=== PATIENT | female | born 1930 | race Caucasian/White ===

== ENCOUNTER 2016-07-12 06:36 | Inpatient (IN) | payer MEDICARE, OTHER ==
[2016-07-12] MEDS: Sodium Chloride 0.9% 10 ML Syringe FLUSH PRN ×2 (07:05→07:38)
--- NOTE | 2016-07-12 07:31 | EDM.PDOC ---
ED HPI Trauma - General Chief Complaint: Lower Extremity Injury/Pain Stated Complaint: [facility] Time Seen by Provider: 07/12/16 06:50 Source: Reports: Patient, EMS History Limitations: Reports: No limitations - History of Present Illness INITIAL COMMENTS - FREE TEXT/NARRATIVE: The patient presents from [place] by EMS for a fall. She lost her balance in the bathroom and fell. She did hit her head and she has a laceration to the right lateral eyebrow. She also has low back pain, right hip pain and right knee pain. She could get up after the fall but she hurt in those areas. She had no LOC. She is on eliquis. She has no chest pain or shortness of breath. She has no abdominal pain. Occurred When: this morning (at about 3:30am) Occurred Where: home ([place]) Method of Injury: fall Severity: moderate Pain/Injury Location: Reports: head, face, back (low), lower extremity, right ( hip and knee) Consciousness: Reports: no loss of consciousness Associated Symptoms: Reports: no other symptoms Allergies/ADRs: Allergies atorvastatin calcium [From Lipitor] Allergy (Verified 07/12/16 06:41) Cannot Remember celecoxib [From Celebrex] Allergy (Verified 07/12/16 06:41) Cannot Remember Home Medications: Ambulatory Orders Acetaminophen [Tylenol] 650 mg PO BID 06/06/16 [Confirmed 07/12/16] Albuterol Sulfate [Proair Respiclick] 2 puff INH ASDIRECTED PRN 06/06/16 [ Confirmed 07/12/16] Albuterol Sulfate [Proair Respiclick] 2 puff INH BID 06/06/16 [Confirmed ] Allopurinol [Zyloprim] 200 mg PO DAILY 06/06/16 [Confirmed 07/12/16] Apixaban [Eliquis] 2.5 mg PO BID 06/06/16 [Confirmed 07/12/16] Calcium Polycarbophil [Fiber Tabs] 3 tab PO DAILY 06/06/16 [Confirmed 07/12/16] Carboxymethylcellulose Sodium [Refresh Tears] 1 drop EYEBOTH TID 06/06/16 [ Confirmed 07/12/16] Cetirizine [ZyrTEC] 10 mg PO DAILY 06/06/16 [Confirmed 07/12/16] Cholecalciferol (Vitamin D3) [Vitamin D3] 1,000 units PO DAILY 06/06/16 [ Confirmed 07/12/16] Diclofenac Sodium [Voltaren 1% Gel] 1 applic TOP BID 06/06/16 [Confirmed ] Diclofenac Sodium [Voltaren 1% Gel] 1 applic TOP BID PRN 06/06/16 [Confirmed ] Donepezil HCl 10 mg PO DAILY 06/06/16 [Confirmed 07/12/16] Ferrous Sulfate [Iron] 325 mg PO MOWESA 06/06/16 [Confirmed 07/12/16] Furosemide [Lasix] 20 mg PO QAM 06/06/16 [Confirmed 07/12/16] Gabapentin [Neurontin] 600 mg PO BEDTIME 06/06/16 [Confirmed 07/12/16] Glucosamine/D3/Boswellia Aby [Osteo Bi-Flex Caplet] 1 each PO DAILY 06/06/16 [ Confirmed 07/12/16] Hydrocodone/Acetaminophen [[place] 5-325] 1 each PO Q12HR PRN 06/06/16 [Confirmed 07/12/16] Insulin Detemir [Levemir Flextouch] 25 unit SQ QAM 06/06/16 [Confirmed 07/12/16] Latanoprost [Xalatan 0.005% Ophth Soln] 2.5 ml EYEBOTH BEDTIME 06/06/16 [ Confirmed 07/12/16] Linagliptin [Tradjenta] 5 mg PO DAILY 06/06/16 [Confirmed 07/12/16] Metoprolol Succinate [Toprol XL] 25 mg PO DAILY 06/06/16 [Confirmed 07/12/16] Mometasone Furoate [Nasonex] 17 gm NS DAILY PRN 06/06/16 [Confirmed 07/12/16] Nystatin [Nystatin Crm] 15 gm TOP BID 06/06/16 [Confirmed 07/12/16] Sennosides [Senna] 3 tab PO DAILY 06/06/16 [Confirmed 07/12/16] Spironolactone [Aldactone] 25 mg PO DAILY 06/06/16 [Confirmed 07/12/16] Tiotropium Br/Olodaterol HCl [Stiolto Respimat Inhal [place]] 2 puff IH DAILY 09/15 [Confirmed 07/12/16] Trolamine Salicylate/Aloe Vera [Aspercreme 10%] 85 gm TOP QID PRN 06/06/16 [ Confirmed 07/12/16] Vitamin B Complex 1 each PO DAILY 06/06/16 [Confirmed 07/12/16] Digoxin 0.0625 mg PO DAILY 06/15/16 [Confirmed 07/12/16] Fluconazole [Diflucan] 200 mg PO ASDIRECTED 07/12/16 [Confirmed 07/12/16] Sacubitril/Valsartan [Entresto 24 mg-26 mg Tablet] 1 each PO BID 07/12/16 [ Confirmed 07/12/16] Past Medical History HEENT History: Reports: Hard of hearing, Impaired vision Other HEENT History: Wears glasses Cardiovascular History: Reports: Afib, CAD, Heart Failure Respiratory History: Reports: Asthma, COPD, PE Gastrointestinal History: Reports: Chronic constipation Genitourinary History: Reports: Chronic renal insuffiency [employer] History: Reports: Musculoskeletal History: Reports: Gout, Osteoarthritis Psychiatric History: Reports: Alzheimers disease Endocrine/Metabolic History: Reports: Diabetes, type II Hematologic History: Reports: Other (see below) Other Hematologic History: thrombocytopenia Oncologic (Cancer) History: Reports: Basal cell carcinoma, Other (see below) Other Oncologic History: actinic keratosis Social & Family History - Tobacco Use Smoking Status *Q: Never Smoker Second Hand Smoke Exposure: No - Caffeine Use Caffeine Use: Reports: Coffee Other Caffeine Use: 1 cup with meals - Alcohol Use Days Per Week of Alcohol Use: 0 - Recreational Drug Use Recreational Drug Use: No Review of Systems - Review of Systems Review Of Systems: See Below Constitutional: Reports: no symptoms Eyes: Reports: no symptoms Ears: Reports: no symptoms Nose: Reports: no symptoms Mouth/Throat: Reports: no symptoms Respiratory: Reports: no symptoms Cardiovascular: Reports: no symptoms GI/Abdominal: Reports: No symptoms Genitourinary: Reports: no symptoms Musculoskeletal: Reports: back pain, other (Right hip and knee pain) Trauma Exam - Physical Exam Exam: See Below Exam Limited By: No limitations General Appearance: Reports: alert, no apparent distress Head: Reports: other (1.5cm laceration to the right lateral eyebrow with an abrasion) Ears: Reports: normal external exam Nose: Reports: normal inspection Neck: Reports: non-tender, normal alignment, normal inspection Respiratory Exam: Reports: no respiratory distress, lungs clear, normal breath sounds Cardiovascular: Reports: regular rate, rhythm, no edema, no murmur GI/Abdominal: Reports: soft, non tender, no organomegaly Back: Reports: other (Moderate tenderness to the low back) Extremities: Reports: other (pain upon palpation to the right hip and right knee ) Course - Vital Signs Last Recorded V/S: Last Vital Signs Temp 99.9 F 07/12/16 06:42 Pulse 85 07/12/16 06:42 Resp 16 07/12/16 06:42 BP 112/60 07/12/16 06:42 Pulse Ox 94 L 07/12/16 06:42 - Orders/Labs/Meds Orders: Active Orders 24 hr Category Date Time Status Cardiac Monitoring [RC] . DIRECTED Care 07/12/16 06:54 Active Peripheral IV Care [RC] . DIRECTED Care 07/12/16 06:55 Active CXR [Chest 1V Frontal] [CR] Stat Exams 07/12/16 08:05 Taken Head wo Cont [CT] Stat Exams 07/12/16 06:55 Taken Hip Min 2V or 3V w Pelvis Rt [CR] Stat Exams 07/12/16 06:57 Taken Knee 3V Rt [CR] Stat Exams 07/12/16 06:58 Taken Lumbar Spine 2 or 3V [CR] Stat Exams 07/12/16 06:56 Taken Sodium Chloride 0.9% [Saline Flush] Med 07/12/16 06:54 Active 10 ml FLUSH ASDIRECTED PRN Peripheral IV Insertion Adult [OM.PC] Stat Oth 07/12/16 06:54 Ordered Medication Orders Sodium Chloride (Saline Flush) 10 ml FLUSH ASDIRECTED PRN PRN Reason: Keep Vein Open Last Admin: 07/12/16 07:38 Dose: 10 ml Admin: 07/12/16 07:05 Dose: 10 ml Labs: Laboratory Tests 07/12/16 07/12/16 Range/Units 07:21 07:21 WBC 6.95 (3.98-10.04) K/mm3 RBC 4.59 (3.98-5.22) M/mm3 Hgb 14.8 (11.2-15.7) gm/L Hct 45.2 H (34.1-44.9) % MCV 98.5 H (79.4-94.8) fl MCH 32.2 (25.6-32.2) pg MCHC 32.7 (32.2-35.5) g/dl RDW Std Deviation 56.1 H (36.4-46.3) fL Plt Count 185 (182-369) K/mm3 MPV 9.9 (9.4-12.3) fl Neut % (Auto) 65.2 (34.0-71.1) % Lymph % (Auto) 15.4 L (19.3-51.7) % [place] % (Auto) 15.0 H (4.7-12.5) % Eos % (Auto) 3.2 (0.7-5.8) Baso % (Auto) 0.6 (0.1-1.2) % Neut # 4.54 (1.56-6.13) K/mm3 Lymph # 1.07 L (1.18-3.74) K/mm3 [place] # 1.04 H (0.24-0.36) K/mm3 Eos # 0.22 (0.04-0.36) K/mm3 Baso # 0.04 (0.01-0.08) K/mm3 Sodium 134 L (136-145) mEq/L Potassium 5.2 H (3.5-5.1) mEq/L Chloride 99 (98-107) mEq/L Carbon Dioxide 25 (21-32) mEq/L Anion Gap 15.2 H (5-15) BUN 37 H (7-18) mg/dL Creatinine 1.4 H (0.55-1.02) mg/dL Est Cr Clr Drug Dosing 20.72 mL/min Estimated GFR (MDRD) 36 (>60) mL/min BUN/Creatinine Ratio 26.4 H (14-18) Glucose 93 (83-115) mg/dL Calcium 8.9 (8.5-10.1) mg/dL Total Bilirubin 0.5 (0.2-1.0) mg/dL AST 41 H (15-37) U/L ALT 37 (14-59) U/L Alkaline Phosphatase 102 (46-116) U/L Total Protein 7.5 (6.4-8.2) g/dl Albumin 3.0 L (3.4-5.0) g/dl Globulin 4.5 gm/dL Albumin/Globulin Ratio 0.7 L (1-2) Meds: Medications Generic Name Dose Route Start Last Admin Trade Name Rosa Isela PRN Reason Stop Dose Admin Sodium Chloride 10 ml 07/12/16 06:54 07/12/16 07:38 Saline Flush FLUSH 10 ml ASDIRECTED PRN Administration Keep Vein Open Discontinued Medications Generic Name Dose Route Start Last Admin Trade Name Rosa Isela PRN Reason Stop Dose Admin Hydromorphone HCl 0.5 mg 07/12/16 09:27 07/12/16 09:39 Dilaudid IVPUSH 07/12/16 09:28 0.5 mg ONETIME ONE Administration Ceftriaxone Sodium 1 gm/ 100 mls @ 200 mls/hr 07/12/16 09:27 07/12/16 09:38 Sodium Chloride IV 07/12/16 09:56 200 mls/hr ONETIME ONE Administration Lidocaine/Epinephrine 20 ml 07/12/16 06:59 07/12/16 07:37 Xylocaine 1% With Epinephrine 1:100,000 INJECT 07/12/16 07:00 20 ml ONETIME ONE Administration - Re-Assessments/Exams Free Text/Narrative Re-Assessment/Exam: 07/12/16 07:32 I ordered an IV saline lock, labs, CT of head and x-rays of her back, hip and knee. 07/12/16 10:02 His CBC looks good. His Na is 134. His K was a little elevated at 5.2. Her anion gap was elevated at 15.2. Her creatinine was elevated at 1.4. Her head CT shows nothing acute. Her hip and knee x-ray does not show any fracture. Her lumbar spine x-ray shows degenerative changes but no fracture. Her laceration does not need sutures. We did try to get her up and she needed 2 person assist to transfer to the [facility]. I gave her some dilaudid for the pain. I do not think she is going to do well at [facility] like this. I called Dr Blake and he agreed to the admission. Departure - Departure Time of Disposition: 10:05 Disposition: Refer to Observation Condition: fair Clinical Impression: Superficial laceration of face, Bronchitis Fall Qualifiers: Encounter type: initial encounter Qualified Code(s): W19.XXXA - Unspecified fall, initial encounter Abrasion of head Qualifiers: Encounter type: initial encounter Qualified Code(s): S00.91XA - Abrasion of unspecified part of head, initial encounter Low back pain Qualifiers: Chronicity: acute Back pain laterality: bilateral Sciatica presence: without sciatica Qualified Code(s): M54.5 - Low back pain Contusion of hip, right Qualifiers: Encounter type: initial encounter Qualified Code(s): S70.01XA - Contusion of right hip, initial encounter Contusion of right knee Qualifiers: Encounter type: initial encounter Qualified Code(s): S80.01XA - Contusion of right knee, initial encounter Forms: ED Department Discharge - My Orders Last 24 Hours: My Active Orders 07/12/16 06:54 Cardiac Monitoring [RC] . DIRECTED Sodium Chloride 0.9% [Saline Flush] 10 ml FLUSH ASDIRECTED PRN Peripheral IV Insertion Adult [OM.PC] Stat 07/12/16 06:55 Peripheral IV Care [RC] . DIRECTED Head wo Cont [CT] Stat 07/12/16 06:56 Lumbar Spine 2 or 3V [CR] Stat 07/12/16 06:57 Hip Min 2V or 3V w Pelvis Rt [CR] Stat 07/12/16 06:58 Knee 3V Rt [CR] Stat 07/12/16 08:05 CXR [Chest 1V Frontal] [CR] Stat - Assessment/Plan Last 24 Hours: My Active Orders 07/12/16 06:54 Cardiac Monitoring [RC] . DIRECTED Sodium Chloride 0.9% [Saline Flush] 10 ml FLUSH ASDIRECTED PRN Peripheral IV Insertion Adult [OM.PC] Stat 07/12/16 06:55 Peripheral IV Care [RC] . DIRECTED Head wo Cont [CT] Stat 07/12/16 06:56 Lumbar Spine 2 or 3V [CR] Stat 07/12/16 06:57 Hip Min 2V or 3V w Pelvis Rt [CR] Stat 07/12/16 06:58 Knee 3V Rt [CR] Stat 07/12/16 08:05 CXR [Chest 1V Frontal] [CR] Stat
[2016-07-12] MEDS: Lidocaine 1% with EPINEPHrine 1:100,000 20 ML MDV INJECT ONE ×2 (07:37→14:33)
[2016-07-12] MEDS ORDERED: cefTRIAXone 1 GM in Sodium Chloride 0.9% 100 ML IV ONE (09:27)
[2016-07-12] MEDS ORDERED: HYDROmorphone 0.5 MG/0.5 ML Syringe IVPUSH ONE (09:27)
[2016-07-12] MEDS ORDERED: cefTRIAXone 1 GM AdvVial IV ONE (10:10)
[2016-07-12] MEDS ORDERED: Sodium Chloride 0.9% 100 ML ONE (10:10)
--- NOTE | 2016-07-12 10:30 | CT ---
Head CT Technique: Multiple axial sections through the brain were obtained. Intravenous contrast was not utilized. Comparison: Previous head CT study of 02/27/16. Findings: Ventricles along with basal cisterns and sulci over the convexities are mildly prominent. Diminished density is scattered within the periventricular and subcortical white matter compatible with small vessel ischemic demyelination change. 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 No other abnormal parenchymal densities are seen. No evidence of intracranial hemorrhage is seen. Atherosclerotic change is seen within the vertebral vessels and carotid siphon. Visualized mastoid sinuses and middle ear cavities as well as paranasal sinuses are clear. No acute calvarial abnormality is identified. Impression: 1. Senescent change as described above which appears fairly stable from prior head CT. 2. No acute intracranial abnormality is identified. Diagnostic code #2 MTDD
--- NOTE | 2016-07-12 10:37 | CR ---
Pelvis and right hip: AP view of the pelvis was obtained as well as AP and frog- leg lateral views of the right hip. Degenerative change and scoliosis is partially visualized within the lumbar spine. Mild degenerative change is noted within the right hip with degenerative spurring and minimal joint space narrowing. Sclerosis noted within the inferior right sacroiliac joint compatible with degenerative change. Osteopenia is noted. Vascular calcification is seen. No acute bony abnormality is identified. Impression: 1. Findings as noted above. Nothing acute is seen on AP pelvis or on two-view right hip exam. Diagnostic code #2 MTDD
--- NOTE | 2016-07-12 10:38 | CR ---
Lumbar spine: AP, lateral and coned-down lateral views centered to the lumbosacral junction were obtained. Comparison:. Previous lumbar spine plain film exam of 02/27/16. Scoliosis and degenerative change noted within the spine. Degenerative change consistent with scattered disc space narrowing and osteophyte. No definite acute appearing compression deformity is seen. No abnormal subluxation is seen. Osteoporosis is noted. Vascular calcification is seen. Impression: 1. Findings as noted above with no appreciable change from previous study. Nothing acute is definitely appreciated on three-view lumbar spine study. Diagnostic code #2 MTDD
--- NOTE | 2016-07-12 10:40 | CR ---
Right knee: AP, lateral and sunrise patellar views of the right knee were obtained. Comparison: No previous knee study is available. Severe joint space narrowing noted within the medial and lateral compartments of the right knee. Osteophytes noted off the medial and lateral compartments. Chondrocalcinosis noted within the medial meniscus. Degenerative spurring noted within the patellofemoral joint. Minimal joint effusion is seen. Vascular calcification is present. Bony structures are osteopenic. No acute bony abnormality is identified. Impression: 1. Diffuse degenerative change, osteopenia and vascular calcification. 2. Minimal joint effusion. Diagnostic code #2 MTDD
[2016-07-12] MEDS ORDERED: Ondansetron 4 MG/2 ML SDV IV PRN (10:47)
[2016-07-12] MEDS ORDERED: HYDROmorphone 0.5 MG/0.5 ML Syringe IVPUSH PRN (10:47)
[2016-07-12] MEDS ORDERED: Polyethylene Glycol 3350 Powder 17 GM Packet PO PRN (10:47)
[2016-07-12] MEDS ORDERED: Acetaminophen/HYDROcodone 325-5 MG Tab PO PRN ×2 (10:47→19:21)
[2016-07-12] MEDS ORDERED: Albuterol/Ipratropium 3.0-0.5 MG/3 ML Neb Soln NEB PRN (10:47)
[2016-07-12] MEDS ORDERED: Acetaminophen 325 MG Tab PO PRN (10:47)
[2016-07-12] MEDS ORDERED: Bisacodyl 5 MG Tab PO PRN (10:47)
[2016-07-12] MEDS ORDERED: Promethazine 12.5 MG in Sodium Chloride 0.9% 50 ML IV PRN (10:47)
[2016-07-12] MEDS ORDERED: Magnesium Hydroxide 400 MG/5 ML Susp 30 ML Cup PO PRN (10:47)
[2016-07-12] MEDS ORDERED: LORazepam 2 MG/ML MDV IV PRN (10:47)
[2016-07-12] MEDS ORDERED: ALOE VERA TOP PRN (10:53)
[2016-07-12] MEDS ORDERED: TROLAMINE SALICYLATE TOP PRN (10:53)
--- NOTE | 2016-07-12 10:57 | PCM.HP ---
H&P History of Present Illness - General Date of Service: 07/12/16 Admit Problem/Dx: Admission Diagnosis/Problem Admission Diagnosis/Problem Fall Source of Information: Patient, Old records, Provider, RN notes reviewed History Limitations: Reports: Physical impairment, Other (Dementia) - History of Present Illness Initial Comments - Free Text/Narative: This is an 85 yo elderly white female with significant cardiac and lung disease who comes for evaluation status post fall. Patient is independent and lives at [facility]. On her way to the bathroom, she lost her balance and fell and possibly hitting the toilet with her face on her way down. She has suffered a cheryle- orbital ecchymosis and a laceration of the right eye brow. She also complains of multiple pain site after the fall. She denies any prodromal symptoms. She reports no LOC or tongue bites. She denies having loss of bladder or bowel control. Patient is known to the hospitalist team from previous admission. All her imaging studies done in ED show not acute abnormal findings. However she was referred for pain management and continued observation post fall. She is full code. Right Knee Pain Score (Numeric/FACES): 7 - Related Data Allergies/Adverse Reactions: Allergies Allergy/AdvReac Type Severity Reaction Status Date / Time atorvastatin calcium Allergy Cannot Verified 07/12/16 06:41 [From Lipitor] Remember celecoxib [From Celebrex] Allergy Cannot Verified 07/12/16 06:41 Remember Home Medications: Home Meds Acetaminophen [Tylenol] 650 mg PO BID 06/06/16 [History] Albuterol Sulfate [Proair Respiclick] 2 puff INH ASDIRECTED PRN 06/06/16 [ History] Albuterol Sulfate [Proair Respiclick] 2 puff INH BID 06/06/16 [History] Allopurinol [Zyloprim] 200 mg PO DAILY 06/06/16 [History] Apixaban [Eliquis] 2.5 mg PO BID 06/06/16 [History] Calcium Polycarbophil [Fiber Tabs] 3 tab PO DAILY 06/06/16 [History] Carboxymethylcellulose Sodium [Refresh Tears] 1 drop EYEBOTH BID 06/06/16 [ History] Cetirizine [ZyrTEC] 10 mg PO DAILY 06/06/16 [History] Cholecalciferol (Vitamin D3) [Vitamin D3] 1,000 units PO DAILY 06/06/16 [History ] Diclofenac Sodium [Voltaren 1% Gel] 1 applic TOP BID 06/06/16 [History] Diclofenac Sodium [Voltaren 1% Gel] 1 applic TOP BID PRN 06/06/16 [History] Donepezil HCl 10 mg PO DAILY 06/06/16 [History] Ferrous Sulfate [Iron] 325 mg PO MOTHSA 06/06/16 [History] Furosemide [Lasix] 60 mg PO QAM 06/06/16 [History] Gabapentin [Neurontin] 600 mg PO QPM 06/06/16 [History] Glucosamine/D3/Boswellia Aby [Osteo Bi-Flex Caplet] 1 each PO DAILY 06/06/16 [ History] Hydrocodone/Acetaminophen [Helton 5-325] 1 each PO Q12HR PRN 06/06/16 [History] Insulin Detemir [Levemir Flextouch] 25 unit SQ QAM 06/06/16 [History] Latanoprost [Xalatan 0.005% Ophth Soln] 1 drop EYEBOTH BEDTIME 06/06/16 [History ] Linagliptin [Tradjenta] 5 mg PO DAILY 06/06/16 [History] Metoprolol Succinate [Toprol XL] 25 mg PO DAILY 06/06/16 [History] Mometasone Furoate [Nasonex] 1 spray NS DAILY PRN 06/06/16 [History] Nystatin [Nystatin Crm] 15 gm TOP BID 06/06/16 [History] Spironolactone [Aldactone] 25 mg PO DAILY 06/06/16 [History] Tiotropium Br/Olodaterol HCl [Stiolto Respimat Inhal Jena] 2 puff IH DAILY 09/15 [History] Trolamine Salicylate/Aloe Vera [Aspercreme 10%] 85 gm TOP QID PRN 06/06/16 [ History] Vitamin B Complex 1 each PO DAILY 06/06/16 [History] Digoxin 0.0625 mg PO DAILY 06/15/16 [History] Docusate Sodium/Sennosides [Senna Plus] 3 tab PO DAILY 07/12/16 [History] Fluconazole [Diflucan] 200 mg PO ASDIRECTED 07/12/16 [History] Sacubitril/Valsartan [Entresto 24 mg-26 mg Tablet] 1 each PO BID 07/12/16 [ History] Past Medical History HEENT History: Reports: Hard of hearing, Impaired vision Other HEENT History: Wears glasses Cardiovascular History: Reports: Afib, CAD, Heart Failure Respiratory History: Reports: Asthma, COPD, PE Gastrointestinal History: Reports: Chronic constipation Genitourinary History: Reports: Chronic renal insuffiency [employer] History: Reports: Musculoskeletal History: Reports: Gout, Osteoarthritis Psychiatric History: Reports: Alzheimers disease Endocrine/Metabolic History: Reports: Diabetes, type II Hematologic History: Reports: Other (see below) Other Hematologic History: thrombocytopenia Oncologic (Cancer) History: Reports: Basal cell carcinoma, Other (see below) Other Oncologic History: actinic keratosis Social & Family History - Tobacco Use Smoking Status *Q: Never Smoker Second Hand Smoke Exposure: No - Caffeine Use Caffeine Use: Reports: Coffee Other Caffeine Use: 1 cup with meals - Alcohol Use Days Per Week of Alcohol Use: 0 - Recreational Drug Use Recreational Drug Use: No H&P Review of Systems - Review of Systems: Review Of Systems: See Below General: Denies: fever HEENT: Reports: no symptoms Pulmonary: Denies: shortness of breath Cardiovascular: Denies: chest pain Gastrointestinal: Denies: Abdominal pain, Nausea, Vomiting Genitourinary: Reports: no symptoms Musculoskeletal: Reports: back pain, joint pain, other (hip and knee pain) Skin: Reports: bruising (cheryle-orbital), wound (right eye brow) Psychiatric: Reports: confusion. Denies: depression, anxiety Neurological: Reports: difficulty walking, gait disturbance Hematologic/Lymphatic: Reports: no symptoms, easy bleeding Immunologic: Reports: no symptoms Exam - Exam Exam: See Below - Vital Signs Vital Signs: Last Vital Signs Temp 37.7 C 07/12/16 06:42 Pulse 85 07/12/16 06:42 Resp 16 07/12/16 06:42 BP 112/60 07/12/16 06:42 Pulse Ox 94 L 07/12/16 06:42 Weight: 83.915 kg - Exam General: alert, mild distress, other (Obese) HEENT: Conjunctiva clear, Mucosa moist & pink, Posterior pharynx clear, Pupils equal, Other (right cheryle-orbital ecchymosis and 1.5 cm laceration right latreal eyebrown with an abrasion) Neck: supple, trachea midline, 2+ carotid pulse wo bruit, other (short and thick ) Lungs: Normal respiratory effort, Decreased breath sounds Cardiovascular: regular rate, regular rhythm Abdomen: normal bowel sounds, soft, organomegaly (Female) Exam: Deferred Rectal (Female) Exam: Deferred Back Exam: normal inspection, decreased range of motion, other (scoliosis and kyphotic spine) Extremities: normal inspection, normal pulses, other (ROM: pain with movement and palpations). No: clubbing, cyanosis, calf tenderness, edema Skin: warm, dry, intact Neuro Extensive - Mental Status: alert, slow response to commands Neuro Extensive - Motor, Sensory, Reflexes: CN II-XII intact (limited but fairly intact), abnormal gait Psychiatric: alert. No: normal affect, normal mood Physical Exam Comments:: Limited neuro exam given her underlying dementia - Patient Data Result Diagrams: 07/12/16 07:21 07/12/16 07:21 *Q Meaningful Use (ADM) - VTE *Q VTE Criteria *Q: - Stroke *Q Stroke Criteria *Q: - AMI *Q AMI Criteria *Q: Problem List Initiated/Reviewed/Updated: Yes Orders Last 24hrs: Active Orders 24 hr Category Date Time Status Ambulate [RC] ASDIRECTED Care 07/12/16 10:47 Active Height and Weight [RC] DAILY Care 07/12/16 10:47 Active Intake and Output [RC] QSHIFT Care 07/12/16 10:48 Active Oxygen Therapy [RC] PRN Care 07/12/16 10:47 Active RT Aerosol Therapy [RC] ASDIRECTED Care 07/12/16 10:50 Active Up ad Silva [RC] ASDIRECTED Care 07/12/16 10:47 Active VTE/DVT Education [RC] PER UNIT ROUTINE Care 07/12/16 10:47 Active Vital Signs [RC] Q4H Care 07/12/16 10:47 Active Consult to Case Management [CONS] Routine Cons 07/12/16 10:50 Active Consult to Resolution Expert [CONS] Routine Cons 07/12/16 10:50 Active OT Evaluation and Treatment [CONS] Routine Cons 07/12/16 10:50 Active PT Evaluation and Treatment [CONS] Routine Cons 07/12/16 10:50 Active Respiratory Care Assess and Treatment [CONS] Routine Cons 07/12/16 10:50 Active 2 Gram Sodium Diet [DIET] Diet 07/12/16 Lunch Active Consistent Carbohydrate Diet [DIET] Diet 07/12/16 Lunch Active Fluid Restriction [DIET] Diet 07/12/16 Lunch Active BASIC METABOLIC PANEL,BMP [CHEM] AM Lab 07/13/16 05:11 Ordered BASIC METABOLIC PANEL,BMP [CHEM] AM Lab 07/14/16 05:11 Ordered BASIC METABOLIC PANEL,BMP [CHEM] AM Lab 07/15/16 05:11 Ordered BASIC METABOLIC PANEL,BMP [CHEM] AM Lab 07/16/16 05:11 Ordered BASIC METABOLIC PANEL,BMP [CHEM] AM Lab 07/17/16 05:11 Ordered CBC WITH AUTO DIFF [HEME] AM Lab 07/13/16 05:11 Ordered CBC WITH AUTO DIFF [HEME] AM Lab 07/14/16 05:11 Ordered CBC WITH AUTO DIFF [HEME] AM Lab 07/15/16 05:11 Ordered CBC WITH AUTO DIFF [HEME] AM Lab 07/16/16 05:11 Ordered CBC WITH AUTO DIFF [HEME] AM Lab 07/17/16 05:11 Ordered CULTURE URINE [RM] Stat Lab 07/12/16 10:50 Uncollected MAGNESIUM [CHEM] AM Lab 07/13/16 05:11 Ordered MAGNESIUM [CHEM] AM Lab 07/14/16 05:11 Ordered MAGNESIUM [CHEM] AM Lab 07/15/16 05:11 Ordered MAGNESIUM [CHEM] AM Lab 07/16/16 05:11 Ordered MAGNESIUM [CHEM] AM Lab 07/17/16 05:11 Ordered MAGNESIUM [CHEM] AM Lab 07/18/16 05:11 Ordered UA W/MICROSCOPIC [URIN] Stat Lab 07/12/16 10:50 Uncollected Acetaminophen [Tylenol] Med 07/12/16 21:00 Ordered 650 mg PO BID Acetaminophen [Tylenol] Med 07/12/16 10:47 Active 650 mg PO Q4H PRN Acetaminophen/HYDROcodone [Helton 325-5 MG] Med 07/12/16 10:47 Ordered 1 tab PO Q4H PRN Albuterol Sulfate [Proair Respiclick] Med 07/12/16 10:53 Ordered 2 puff INH ASDIRECTED PRN Albuterol Sulfate [Proair Respiclick] Med 07/12/16 21:00 Ordered 2 puff INH BID Albuterol/Ipratropium [DuoNeb 3.0-0.5 MG/3 ML] Med 07/12/16 10:47 Ordered 3 ml NEB Q4H PRN Allopurinol [Zyloprim] Med 07/13/16 09:00 Ordered 200 mg PO DAILY Apixaban [Eliquis] Med 07/12/16 21:00 Ordered 2.5 mg PO BID Bisacodyl [Dulcolax] Med 07/12/16 10:47 Ordered 5 mg PO DAILY PRN Calcium Polycarbophil [Fiber Tabs] Med 07/13/16 09:00 Ordered 3 tab PO DAILY Carboxymethylcellulose Sodium Med 07/12/16 15:00 Ordered 1 drop EYEBOTH TID Cetirizine Med 07/13/16 09:00 Ordered 10 mg PO DAILY Cholecalciferol (Vitamin D3) [Vitamin D3] Med 07/13/16 09:00 Ordered 1,000 units PO DAILY Digoxin [Digoxin] Med 07/13/16 09:00 Ordered 0.0625 mg PO DAILY Docusate Sodium/Sennosides [Senna Plus] Med 07/12/16 10:47 Active 1 tab PO BID PRN Donepezil HCl [Donepezil HCl] Med 07/13/16 09:00 Ordered 10 mg PO DAILY Enoxaparin [Lovenox] Med 07/13/16 09:00 Ordered 30 mg SUBCUT DAILY Ferrous Sulfate [Iron] Med 07/12/16 11:00 Ordered 325 mg PO MOWESA Fluconazole [Diflucan] Med 07/12/16 11:00 Ordered 200 mg PO ASDIRECTED Furosemide [Lasix] Med 07/13/16 08:00 Ordered 20 mg PO QAM Gabapentin [Neurontin] Med 07/12/16 21:00 Ordered 600 mg PO BEDTIME Glucosamine/D3/Boswellia Aby [Osteo Bi-Flex Caplet] Med 07/13/16 09:00 Ordered 1 each PO DAILY HYDROmorphone [Dilaudid] Med 07/12/16 10:47 Active 0.25 mg IVPUSH Q2H PRN Insulin Detemir [Levemir Flextouch] Med 07/13/16 08:00 Ordered 25 unit SQ QAM LORazepam [Ativan] Med 07/12/16 10:47 Ordered 0.5 mg IV Q6H PRN Latanoprost [Xalatan 0.005% Ophth Soln] Med 07/12/16 21:00 Ordered 2.5 ml EYEBOTH BEDTIME Linagliptin Med 07/13/16 09:00 Ordered 5 mg PO DAILY Magnesium Hydroxide [Milk of Magnesia] Med 07/12/16 10:47 Ordered 30 ml PO Q12H PRN Metoprolol Succinate [Toprol XL] Med 07/13/16 09:00 Ordered 25 mg PO DAILY Mometasone Furoate Med 07/12/16 10:53 Ordered 17 gm NS DAILY PRN Nystatin Med 07/12/16 21:00 Ordered 15 gm TOP BID Ondansetron [Zofran] Med 07/12/16 10:47 Ordered 4 mg IV Q6H PRN Polyethylene Glycol 3350 [MiraLAX] Med 07/12/16 10:47 Ordered 17 gm PO DAILY PRN Promethazine [Phenergan] 12.5 mg Med 07/12/16 10:47 Active Sodium Chloride 0.9% [Normal Saline] 50 ml IV Q6H Sacubitril/Valsartan [Entresto 24 mg-26 mg Tablet] Med 07/12/16 21:00 Ordered 1 each PO BID Sennosides [Senna] Med 07/13/16 09:00 Ordered 3 tab PO DAILY Spironolactone [Aldactone] Med 07/13/16 09:00 Ordered 25 mg PO DAILY Temazepam [Restoril] Med 07/12/16 10:47 Ordered 7.5 mg PO BEDTIME PRN Tiotropium Br/Olodaterol HCl [Stiolto Respimat Inhal Med 07/13/16 09:00 Ordered Jena] 2 puff IH DAILY Trolamine Salicylate/Aloe Vera Med 07/12/16 10:53 Ordered 85 gm TOP QID PRN Vitamin B Complex Med 07/13/16 09:00 Ordered 1 each PO DAILY Precautions [COMM] Routine Oth 07/12/16 10:51 Ordered Resuscitation Status Routine Resus Stat 07/12/16 10:47 Ordered Medication Orders Acetaminophen (Tylenol) 650 mg PO Q4H PRN PRN Reason: Pain (Mild 1-3)/fever Acetaminophen/Hydrocodone Bitart (Helton 325-5 Mg) 1 tab PO Q4H PRN PRN Reason: Pain (moderate 4-6) Albuterol/Ipratropium (Duoneb 3.0-0.5 Mg/3 Ml) 3 ml NEB Q4H PRN PRN Reason: Shortness Of Breath/wheezing Bisacodyl (Dulcolax) 5 mg PO DAILY PRN PRN Reason: Constipation Enoxaparin Sodium (Lovenox) 30 mg SUBCUT DAILY JAMEL Hydromorphone HCl (Dilaudid) 0.25 mg IVPUSH Q2H PRN PRN Reason: Pain (severe 7-10) Promethazine HCl 12.5 mg/ (Sodium Chloride) 50.5 mls @ 100 mls/hr IV Q6H PRN PRN Reason: Nausea/Vomiting Lorazepam (Ativan) 0.5 mg IV Q6H PRN PRN Reason: Anxiety Magnesium Hydroxide (Milk Of Magnesia) 30 ml PO Q12H PRN PRN Reason: Constipation Non-Formulary Medication (Albuterol Sulfate [Proair Respiclick]) 2 puff INH ASDIRECTED PRN PRN Reason: Shortness of Breath Non-Formulary Medication (Mometasone Furoate) 17 gm NS DAILY PRN PRN Reason: STUFFY NOSE Non-Formulary Medication (Trolamine Salicylate/Aloe Vera) 85 gm TOP QID PRN PRN Reason: Pain Non-Formulary Medication (Ferrous Sulfate [Iron]) 325 mg PO MOWESA JAMEL Non-Formulary Medication (Fluconazole [Diflucan]) 200 mg PO ASDIRECTED JAMEL Non-Formulary Medication (Carboxymethylcellulose Sodium) 1 drop EYEBOTH TID JAMEL Non-Formulary Medication (Acetaminophen [Tylenol]) 650 mg PO BID JAMEL Non-Formulary Medication (Albuterol Sulfate [Proair Respiclick]) 2 puff INH BID JAMEL Non-Formulary Medication (Apixaban [Eliquis]) 2.5 mg PO BID JAMEL Non-Formulary Medication (Gabapentin [Neurontin]) 600 mg PO BEDTIME JAMEL Non-Formulary Medication (Latanoprost [Xalatan 0.005% Ophth Soln]) 2.5 ml EYEBOTH BEDTIME JAMEL Non-Formulary Medication (Nystatin) 15 gm TOP BID JAMEL Non-Formulary Medication (Sacubitril/Valsartan [Entresto 24 Mg-26 Mg Tablet]) 1 each PO BID JAMEL Non-Formulary Medication (Furosemide [Lasix]) 20 mg PO QAM JAMEL Non-Formulary Medication (Insulin Detemir [Levemir Flextouch]) 25 unit SQ QAM JAMEL Non-Formulary Medication (Allopurinol [Zyloprim]) 200 mg PO DAILY JAMEL Non-Formulary Medication (Calcium Polycarbophil [Fiber Tabs]) 3 tab PO DAILY JAMEL Non-Formulary Medication (Cetirizine) 10 mg PO DAILY JAMEL Non-Formulary Medication (Cholecalciferol (Vitamin D3) [Vitamin D3]) 1,000 units PO DAILY JAMEL Non-Formulary Medication (Digoxin [Digoxin]) 0.0625 mg PO DAILY JAMEL Non-Formulary Medication (Donepezil Hcl [Donepezil Hcl]) 10 mg PO DAILY JAMEL Non-Formulary Medication (Glucosamine/D3/Boswellia Aby [Osteo Bi-Flex Caplet] ) 1 each PO DAILY JAMEL Non-Formulary Medication (Linagliptin) 5 mg PO DAILY JAMEL Non-Formulary Medication (Metoprolol Succinate [Toprol Xl]) 25 mg PO DAILY JAMEL Non-Formulary Medication (Sennosides [Senna]) 3 tab PO DAILY JAMEL Non-Formulary Medication (Spironolactone [Aldactone]) 25 mg PO DAILY JAMEL Non-Formulary Medication (Tiotropium Br/Olodaterol Hcl [Stiolto Respimat Inhal Jena]) 2 puff IH DAILY JMAEL Non-Formulary Medication (Vitamin B Complex) 1 each PO DAILY JAMEL Ondansetron HCl (Zofran) 4 mg IV Q6H PRN PRN Reason: Nausea/Vomiting Polyethylene Glycol (Miralax) 17 gm PO DAILY PRN PRN Reason: Constipation Senna/Docusate Sodium (Senna Plus) 1 tab PO BID PRN PRN Reason: Constipation Sodium Chloride (Saline Flush) 10 ml FLUSH ASDIRECTED PRN PRN Reason: Keep Vein Open Last Admin: 07/12/16 07:38 Dose: 10 ml Admin: 07/12/16 07:05 Dose: 10 ml Temazepam (Restoril) 7.5 mg PO BEDTIME PRN PRN Reason: Sleep Assessment/Plan Comment:: Assessment/Plan: Acute Status Post Fall - Likely mechanical - Carries hx/o Advanced OA/DJD - PT/OT consult Intractable Pain Status Post Fall - All imaging studies negative for acute fracture - Pain Management and PT/OT utaneous Candidiasis - Risk factors: DM2 and Obesity - Continue oral antifungal medications Right Cheryle-orbital Ecchymosis and Small Forehead Laceration - Will monitor AMS - She has underlying Alzheimer's Disease - Seems to be at baseline - High risk poly-pharmacy - UA shows no UTI Self Neglect/Functional Decline - Lives in [facility], independent - Has Alzheimer's Dementia - per nurse she has fungal infection on groin area and skin folds - It appears she has not taken a shower High Risk Poly-pharmacy - She got more plenty of home medications Chronic: Impaired Tina and Vision Chronic Atrial Fibrillation, on Eliquis CAD HF with reduced EF 30-25% 06/06/16 Asthma/COPD Constipation CKD OA/DJD Osteopenia Gout Advanced Cardiac Valvular Dysfunction DM2 Alzheimer's Disease Thrombocytopenia BCC Actinic Keratosis Plan: Admit to Med-Surge Routine AM Labs Resume Home Meds ISS and Accu-check Fall and Sundowning Precautions Neuro check Q4 x4 since she is on eliquis PT/OT consult SW/CM for d/c planning Recommend SNF/NH Code status: 1
--- NOTE | 2016-07-12 11:03 | CR ---
Chest: Portable view of the chest was obtained. Comparison: Previous chest x-ray of 06/15/16. Increased density within the left lung base. Slight increased central lung markings noted. Heart is mildly enlarged. Bony structures are grossly intact. Impression: 1. Increased density within left lung base most likely due to continuing atelectasis as it is fairly stable from prior exam. 2. Increased central lung markings which appear to represent chronic pulmonary vascular congestion which is also stable from prior exam. 3. Other incidental findings. Diagnostic code #2
[2016-07-12] MEDS ORDERED: Enoxaparin 30 MG/0.3 ML Syringe SUBCUT SCH ×2 (11:15→14:00)
[2016-07-12] MEDS: Furosemide 20 MG Tab PO SCH (14:42)
[2016-07-12] MEDS: FLUCONAZOLE 200 MG PO SCH (14:43)
[2016-07-12] MEDS: Ferrous Sulfate 325 MG Tab PO SCH (14:43)
[2016-07-12] MEDS: Gabapentin 600 MG Tab PO SCH (17:29)
[2016-07-12] MEDS ORDERED: 50% Dextrose in Water 50 ML Syringe IVPUSH PRN (19:20)
[2016-07-12] MEDS ORDERED: Non-Formulary Medication 1 Each (Albuterol Sulfate [Proair Respiclick] 2 PUFF) INH SCH (21:00)
[2016-07-12] MEDS ORDERED: Temazepam 7.5 MG Cap PO PRN (21:00)
[2016-07-12] MEDS: Apixaban 5 MG Tab PO SCH (21:49)
[2016-07-12] MEDS: Acetaminophen 325 MG Tab PO SCH (21:50)
[2016-07-12] MEDS: Insulin Aspart 100 Units/ML 3 ML Pen SUBCUT SCH (21:51)
[2016-07-12] MEDS: NYSTATIN 15 GM TOP SCH (21:54)
[2016-07-12] MEDS: LATANOPROST EYEBOTH SCH (21:56)
[2016-07-12] MEDS: CARBOXYMETHYLCELLULOSE SODIUM EYEBOTH SCH (21:57)
[2016-07-12] MEDS: SACUBITRIL PO SCH (22:02)
[2016-07-12] MEDS: VALSARTAN PO SCH (22:02)
[2016-07-13] MEDS: Insulin Aspart 100 Units/ML 3 ML Pen SUBCUT SCH ×4 (06:34→21:10)
[2016-07-13] MEDS: Tiotropium Br/Olodaterol Hcl [Stiolto Respimat] INH SCH (08:31)
[2016-07-13] MEDS: ALBUTEROL SULFATE INH PRN ×2 (08:33→20:34)
[2016-07-13] MEDS: Insulin Detemir 100 Units/ML 3 ML Pen SUBCUT SCH (09:13)
[2016-07-13] MEDS: Spironolactone 25 MG Tab PO SCH (09:20)
[2016-07-13] MEDS: Apixaban 5 MG Tab PO SCH ×2 (09:23→21:09)
[2016-07-13] MEDS: Digoxin 125 MCG Tab PO SCH (09:24)
[2016-07-13] MEDS: Furosemide 20 MG Tab PO SCH (09:25)
[2016-07-13] MEDS: CALCIUM POLYCARBOPHIL PO SCH (09:33)
[2016-07-13] MEDS: LINAGLIPTIN 5 MG PO SCH (09:42)
[2016-07-13] MEDS: Vitamin B Complex 1 EACH PO SCH (09:43)
[2016-07-13] MEDS: Metoprolol Succinate 25 MG Tab.ER PO SCH (09:45)
[2016-07-13] MEDS: Acetaminophen 325 MG Tab PO SCH ×2 (09:46→21:10)
[2016-07-13] MEDS: Cholecalciferol (Vitamin D3) 1,000 Unit Tab PO SCH (09:47)
[2016-07-13] MEDS: Allopurinol 100 MG Tab PO SCH (09:48)
[2016-07-13] MEDS: Donepezil 10 MG Tab PO SCH (09:50)
[2016-07-13] MEDS: SACUBITRIL PO SCH ×2 (09:56→21:10)
[2016-07-13] MEDS: VALSARTAN PO SCH ×2 (09:56→21:10)
[2016-07-13] MEDS: CARBOXYMETHYLCELLULOSE SODIUM EYEBOTH SCH ×2 (10:05→21:09)
[2016-07-13] MEDS: [UNRECOGNIZED DRUG - OTHER] PO SCH (10:05)
[2016-07-13] MEDS: GLUCOSAMINE PO SCH (10:05)
[2016-07-13] MEDS: D3 PO SCH (10:05)
--- NOTE | 2016-07-13 10:06 | PCM.PN ---
- General Info Date of Service: 07/13/16 Admission Dx/Problem (Free Text): Admission Diagnosis/Problem Admission Diagnosis/Problem Fall Subjective Update: Follow Up Functional Status: Reports: pain controlled, tolerating diet, urinating. Denies : new symptoms - Review of Systems General: Reports: Weakness. Denies: Fever, Fatigue, Malaise, Chills HEENT: Reports: no symptoms Pulmonary: Denies: shortness of breath Cardiovascular: Denies: Chest Pain, Palpitations, Dyspnea on Exertion Gastrointestinal: Denies: Abdominal pain, Nausea, Vomiting Genitourinary: Reports: no symptoms Musculoskeletal: Reports: back pain, other (tail-bone pain) Skin: Reports: bruising Neurological: Reports: Difficulty Walking, Gait Disturbance Psychiatric: Denies: depression, anxiety, hallucinations Systems Review Comment:: No overnight issues. Her labs were unremarkable. Her vitals were stable. She has no new complaints. - Patient Data Vitals - most recent: Last Vital Signs Temp 36.9 C 07/13/16 08:37 Pulse 88 07/13/16 09:45 Resp 20 07/13/16 08:37 BP 92/62 07/13/16 09:45 Pulse Ox 95 07/13/16 08:37 Weight - most recent: 81.873 kg I&O - last 24 hours: Intake & Output 07/12/16 07/13/16 07/13/16 22:59 06:59 14:59 Intake Total 630 800 Output Total 100 950 Balance 530 -150 Lab Results last 24 hrs: Laboratory Results - last 24 hr 07/12/16 07/12/16 07/13/16 Range/Units 19:00 21:49 06:28 WBC 5.29 (3.98-10.04) K/mm3 RBC 4.90 (3.98-5.22) M/mm3 Hgb 15.6 (11.2-15.7) gm/L Hct 48.4 H (34.1-44.9) % MCV 98.8 H (79.4-94.8) fl MCH 31.8 (25.6-32.2) pg MCHC 32.2 (32.2-35.5) g/dl RDW Std Deviation 56.9 H (36.4-46.3) fL Plt Count 170 L (182-369) K/mm3 MPV 10.4 (9.4-12.3) fl Neut % (Auto) 54.2 (34.0-71.1) % Lymph % (Auto) 24.0 (19.3-51.7) % Union % (Auto) 13.8 H (4.7-12.5) % Eos % (Auto) 6.6 H (0.7-5.8) Baso % (Auto) 0.8 (0.1-1.2) % Neut # 2.87 (1.56-6.13) K/mm3 Lymph # 1.27 (1.18-3.74) K/mm3 Union # 0.73 H (0.24-0.36) K/mm3 Eos # 0.35 (0.04-0.36) K/mm3 Baso # 0.04 (0.01-0.08) K/mm3 Sodium (136-145) mEq/L Potassium (3.5-5.1) mEq/L Chloride (98-107) mEq/L Carbon Dioxide (21-32) mEq/L Anion Gap (5-15) BUN (7-18) mg/dL Creatinine (0.55-1.02) mg/dL Est Cr Clr Drug Dosing mL/min Estimated GFR (MDRD) (>60) mL/min BUN/Creatinine Ratio (14-18) Glucose (83-115) mg/dL POC Glucose 177 H (83-110) mg/dL Calcium (8.5-10.1) mg/dL Magnesium (1.8-2.4) mg/dl Urine Color Straw (Yellow) Urine Appearance Clear (Clear) Urine pH 6.0 (5.0-8.0) Ur Specific [place] 1.015 (1.005-1.030) Urine Protein Negative (Negative) Urine Glucose (UA) Negative (Negative) Urine Ketones Negative (Negative) Urine Occult Blood Trace-lysed H (Negative) Urine Nitrite Negative (Negative) Urine Bilirubin Negative (Negative) Urine Urobilinogen 0.2 (0.2-1.0) Ur Leukocyte Esterase Trace H (Negative) Urine RBC 0-5 (0-5) /hpf Urine WBC 0-5 (0-5) /hpf Ur Squamous Epith Cells 5-10 H (0-5) /hpf Urine Bacteria Few (FEW) /hpf Hyaline Casts 0-5 (0-5) /lpf Urine Mucus Not seen (FEW) /hpf 07/13/16 07/13/16 Range/Units 06:28 06:29 WBC (3.98-10.04) K/mm3 RBC (3.98-5.22) M/mm3 Hgb (11.2-15.7) gm/L Hct (34.1-44.9) % MCV (79.4-94.8) fl MCH (25.6-32.2) pg MCHC (32.2-35.5) g/dl RDW Std Deviation (36.4-46.3) fL Plt Count (182-369) K/mm3 MPV (9.4-12.3) fl Neut % (Auto) (34.0-71.1) % Lymph % (Auto) (19.3-51.7) % Union % (Auto) (4.7-12.5) % Eos % (Auto) (0.7-5.8) Baso % (Auto) (0.1-1.2) % Neut # (1.56-6.13) K/mm3 Lymph # (1.18-3.74) K/mm3 Union # (0.24-0.36) K/mm3 Eos # (0.04-0.36) K/mm3 Baso # (0.01-0.08) K/mm3 Sodium 134 L (136-145) mEq/L Potassium 4.7 (3.5-5.1) mEq/L Chloride 99 (98-107) mEq/L Carbon Dioxide 25 (21-32) mEq/L Anion Gap 14.7 (5-15) BUN 48 H (7-18) mg/dL Creatinine 1.6 H (0.55-1.02) mg/dL Est Cr Clr Drug Dosing 19.05 mL/min Estimated GFR (MDRD) 31 (>60) mL/min BUN/Creatinine Ratio 30.0 H (14-18) Glucose 104 (83-115) mg/dL POC Glucose 100 (83-110) mg/dL Calcium 8.7 (8.5-10.1) mg/dL Magnesium 2.0 (1.8-2.4) mg/dl Urine Color (Yellow) Urine Appearance (Clear) Urine pH (5.0-8.0) Ur Specific [place] (1.005-1.030) Urine Protein (Negative) Urine Glucose (UA) (Negative) Urine Ketones (Negative) Urine Occult Blood (Negative) Urine Nitrite (Negative) Urine Bilirubin (Negative) Urine Urobilinogen (0.2-1.0) Ur Leukocyte Esterase (Negative) Urine RBC (0-5) /hpf Urine WBC (0-5) /hpf Ur Squamous Epith Cells (0-5) /hpf Urine Bacteria (FEW) /hpf Hyaline Casts (0-5) /lpf Urine Mucus (FEW) /hpf Med Orders - Current: Current Medications Acetaminophen (Tylenol) 650 mg PO Q4H PRN PRN Reason: Pain (Mild 1-3)/fever Acetaminophen (Tylenol) 650 mg PO BID [facility] Last Admin: 07/13/16 09:46 Dose: 650 mg Acetaminophen/Hydrocodone Bitart ([place] 325-5 Mg) 1 tab PO Q4H PRN PRN Reason: Pain (moderate 4-6) Last Admin: 07/12/16 14:42 Dose: 1 tab Acetaminophen/Hydrocodone Bitart ([place] 325-5 Mg) 1 tab PO Q12HR PRN PRN Reason: Pain Albuterol/Ipratropium (Duoneb 3.0-0.5 Mg/3 Ml) 3 ml NEB Q4H PRN PRN Reason: Shortness Of Breath/wheezing Allopurinol (Zyloprim) 200 mg PO DAILY [facility] Last Admin: 07/13/16 09:48 Dose: 200 mg Apixaban (Eliquis) 2.5 mg PO BID [facility] Last Admin: 07/13/16 09:23 Dose: 2.5 mg Bisacodyl (Dulcolax) 5 mg PO DAILY PRN PRN Reason: Constipation Cholecalciferol (Vitamin D3) 1,000 units PO DAILY [facility] Last Admin: 07/13/16 09:47 Dose: 1,000 units Dextrose/Water (Dextrose 50% In Water) 50 ml IVPUSH ASDIRECTED PRN PRN Reason: Hypoglycemia Digoxin (Lanoxin) 62.5 mcg PO DAILY [facility] Last Admin: 07/13/16 09:24 Dose: 62.5 mcg Donepezil HCl (Aricept) 10 mg PO DAILY [facility] Last Admin: 07/13/16 09:50 Dose: 10 mg Ferrous Sulfate (Ferrous Sulfate) 325 mg PO MoThSa [facility] Last Admin: 07/12/16 14:43 Dose: 325 mg Flunisolide (Nasalide Nasal [place]) 0 ml NASBOTH DAILY PRN PRN Reason: STUFFY NOSE Furosemide (Lasix) 60 mg PO DAILY [facility] Last Admin: 07/13/16 09:25 Dose: 60 mg Gabapentin (Neurontin) 600 mg PO QPM [facility] Last Admin: 07/12/16 17:29 Dose: 600 mg Hydromorphone HCl (Dilaudid) 0.25 mg IVPUSH Q2H PRN PRN Reason: Pain (severe 7-10) Promethazine HCl 12.5 mg/ (Sodium Chloride) 50.5 mls @ 100 mls/hr IV Q6H PRN PRN Reason: Nausea/Vomiting Insulin Aspart (Novolog) 0 unit SUBCUT QIDACANDBED [facility] PRN Reason: Protocol Last Admin: 07/13/16 06:34 Dose: Not Given Insulin Detemir (Levemir) 25 unit SUBCUT QAM [facility] Last Admin: 07/13/16 09:13 Dose: 25 units Lorazepam (Ativan) 0.5 mg IV Q6H PRN PRN Reason: Anxiety Magnesium Hydroxide (Milk Of Magnesia) 30 ml PO Q12H PRN PRN Reason: Constipation Metoprolol Succinate (Toprol Xl) 25 mg PO DAILY [facility] Last Admin: 07/13/16 09:45 Dose: 25 mg Nystatin 15 Gm 0 gm TOP BID [facility] Last Admin: 07/12/16 21:54 Dose: 1 gm Ondansetron HCl (Zofran) 4 mg IV Q6H PRN PRN Reason: Nausea/Vomiting Albuterol Sulfate [ (Ventolin]) 0 each INH ASDIRECTED PRN PRN Reason: Shortness of Breath Last Admin: 07/13/16 08:33 Dose: 2 each Trolamine Salicylate (/Aloe Vera 85 Gm) 0 each TOP QID PRN PRN Reason: Pain Fluconazole [ (Diflucan] 200 Mg) 0 each PO Q72H [facility] Last Admin: 07/12/16 14:43 Dose: 1 each Carboxymethylcellulo (se Sodium 1 Drop) 0 each EYEBOTH BID [facility] Last Admin: 07/12/16 21:57 Dose: 1 each Latanoprost [Xalatan 0.005% Oph Soln] 2.5 Ml 0 each EYEBOTH BEDTIME [facility] Last Admin: 07/12/16 21:56 Dose: 1 each Sacubitril/Valsartan [Entresto 24 Mg-26 Mg Tablet] 1 Each 0 each PO BID [facility] Last Admin: 07/13/16 09:56 Dose: 1 each Calcium Polycarbophil [Fiber Tabs] 3 Tab 0 each PO DAILY [facility] Last Admin: 07/13/16 09:33 Dose: 3 each Cetirizine 10 Mg 0 each PO DAILY [facility] Last Admin: 07/13/16 09:40 Dose: 1 each Glucosamine/D3/Boswellia Aby [ Osteo Bi-Flex Caplet ] 1 E 0 each PO DAILY [facility] Linagliptin [ (Tradjenta] 5 Mg) 0 each PO DAILY [facility] Last Admin: 07/13/16 09:42 Dose: 1 each Tiotropium Br/Olodaterol Hcl [ Stiolto Respimat] 0 each INH DAILY [facility] Last Admin: 07/13/16 08:31 Dose: 2 each Vitamin B Complex 1 (Each) 0 each PO DAILY [facility] Last Admin: 07/13/16 09:43 Dose: 1 each Polyethylene Glycol (Miralax) 17 gm PO DAILY PRN PRN Reason: Constipation Senna/Docusate Sodium (Senna Plus) 1 tab PO BID PRN PRN Reason: Constipation Senna/Docusate Sodium (Senna Plus) 3 tab PO DAILY [facility] Last Admin: 07/13/16 09:45 Dose: 3 tab Senna/Docusate Sodium (Senna Plus) 3 tab PO DAILY [facility] Sodium Chloride (Saline Flush) 10 ml FLUSH ASDIRECTED PRN PRN Reason: Keep Vein Open Last Admin: 07/12/16 07:38 Dose: 10 ml Spironolactone (Aldactone) 25 mg PO DAILY [facility] Last Admin: 07/13/16 09:20 Dose: 25 mg Temazepam (Restoril) 7.5 mg PO BEDTIME PRN PRN Reason: Sleep Discontinued Medications Ceftriaxone Sodium (Rocephin) Confirm Administered Dose 1 gm IV .STK-MED ONE Stop: 07/12/16 10:11 Last Admin: 07/12/16 11:08 Dose: Not Given Enoxaparin Sodium (Lovenox) 30 mg SUBCUT DAILY [facility] Last Admin: 07/12/16 14:34 Dose: Not Given Enoxaparin Sodium (Lovenox) 30 mg SUBCUT DAILY [facility] Hydromorphone HCl (Dilaudid) 0.5 mg IVPUSH ONETIME ONE Stop: 07/12/16 09:28 Last Admin: 07/12/16 09:39 Dose: 0.5 mg Ceftriaxone Sodium 1 gm/ (Sodium Chloride) 100 mls @ 200 mls/hr IV ONETIME ONE Stop: 07/12/16 09:56 Last Admin: 07/12/16 09:38 Dose: 200 mls/hr Sodium Chloride (Normal Saline) Confirm Administered Dose 100 mls @ as directed .ROUTE .STK-MED ONE Stop: 07/12/16 10:11 Last Admin: 07/12/16 14:33 Dose: Not Given Lidocaine/Epinephrine (Xylocaine 1% With Epinephrine 1:100,000) 20 ml INJECT ONETIME ONE Stop: 07/12/16 07:00 Last Admin: 07/12/16 14:33 Dose: Not Given Non-Formulary Medication (Albuterol Sulfate [Proair Respiclick]) 2 puff INH BID JAMEL - Exam General: alert, cooperative, no acute distress, other (Obese) HEENT: Pupils equal, Pupils reactive, EOMI, Mucous membr. moist/pink, Other ( cheryle-orbital ecchymosis and small laceration on right eyebrow) Neck: supple, trachea midline, other (short and thick) Lungs: Normal respiratory effort, Decreased breath sounds Cardiovascular: Regular Rate, Regular Rhythm Abdomen: bowel sounds present, soft, no tenderness, no distension (Female) Exam: Deferred Back Exam: normal inspection, decreased range of motion, other (kyphotic spine) Extremities: no edema, normal pulses, no tenderness/swelling, no clubbing, no cyanosis, no calf tenderness Peripheral Pulses: 2+: dorsalis pedis (L), dorsalis pedis (R) Skin: warm, dry, intact, ecchymosis Neurological: no new focal deficit. No: normal gait, strength equal bilateral Psy/Mental Status: alert, normal affect, normal mood - Problem List Review Problem List Initiated/Reviewed/Updated: Yes - My Orders Last 24 Hours: My Active Orders 07/12/16 10:47 Ambulate [RC] ASDIRECTED Height and Weight [RC] 04 Oxygen Therapy [RC] PRN Up ad Silva [RC] ASDIRECTED VTE/DVT Education [RC] DAILY Vital Signs [RC] 09,15,21,03 Acetaminophen [Tylenol] 650 mg PO Q4H PRN Acetaminophen/HYDROcodone [[place] 325-5 MG] 1 tab PO Q4H PRN Albuterol/Ipratropium [DuoNeb 3.0-0.5 MG/3 ML] 3 ml NEB Q4H PRN Bisacodyl [Dulcolax] 5 mg PO DAILY PRN Docusate Sodium/Sennosides [Senna Plus] 1 tab PO BID PRN HYDROmorphone [Dilaudid] 0.25 mg IVPUSH Q2H PRN LORazepam [Ativan] 0.5 mg IV Q6H PRN Magnesium Hydroxide [Milk of Magnesia] 30 ml PO Q12H PRN Ondansetron [Zofran] 4 mg IV Q6H PRN Polyethylene Glycol 3350 [MiraLAX] 17 gm PO DAILY PRN Promethazine [Phenergan] 12.5 mg Sodium Chloride 0.9% [Normal Saline] 50 ml IV Q6H Resuscitation Status Routine 07/12/16 10:48 Intake and Output [RC] 06,14 07/12/16 10:50 RT Aerosol Therapy [RC] .PRN Consult to Case Management [CONS] Routine Consult to [employer] [CONS] Routine OT Evaluation and Treatment [CONS] Routine PT Evaluation and Treatment [CONS] Routine Respiratory Care Assess and Treatment [CONS] Routine 07/12/16 10:51 Precautions [COMM] Routine 07/12/16 10:53 Flunisolide [Nasalide Nasal [place]] 0 ml NASBOTH DAILY PRN Patient's Own Medication [Ptom] 0 each INH ASDIRECTED PRN Patient's Own Medication [Ptom] 0 each TOP QID PRN 07/12/16 11:00 Ferrous Sulfate 325 mg PO MoThSa 07/12/16 12:53 Admission Status [Patient Status] [ADT] Routine 07/12/16 13:45 Furosemide [Lasix] 60 mg PO DAILY 07/12/16 15:00 Patient's Own Medication [Ptom] 0 each PO Q72H 07/12/16 18:00 Gabapentin [Neurontin] 600 mg PO QPM 07/12/16 19:00 CULTURE URINE [RM] Stat 07/12/16 19:20 Blood Glucose Check, Bedside [RC] QIDACANDBED Dextrose 50% in Water 50 ml IVPUSH ASDIRECTED PRN 07/12/16 19:21 Acetaminophen/HYDROcodone [[place] 325-5 MG] 1 tab PO Q12HR PRN 07/12/16 21:00 Acetaminophen [Tylenol] 650 mg PO BID Apixaban [Eliquis] 2.5 mg PO BID Nystatin 0 gm TOP BID Patient's Own Medication [Ptom] 0 each EYEBOTH BEDTIME Patient's Own Medication [Ptom] 0 each EYEBOTH BID Patient's Own Medication [Ptom] 0 each PO BID Temazepam [Restoril] 7.5 mg PO BEDTIME PRN 07/12/16 21:39 CULTURE MRSA SURVEY [RM] Routine 07/12/16 22:00 Insulin Aspart [NovoLOG] See Protocol SUBCUT QIDACANDBED 07/12/16 Lunch 2 Gram Sodium Diet [DIET] Consistent Carbohydrate Diet [DIET] Fluid Restriction [DIET] 07/13/16 08:00 Insulin Detemir [Levemir] 25 unit SUBCUT QAM 07/13/16 09:00 Allopurinol [Zyloprim] 200 mg PO DAILY Cholecalciferol (Vitamin D3) [Vitamin D3] 1,000 units PO DAILY Digoxin [Lanoxin] 62.5 mcg PO DAILY Docusate Sodium/Sennosides [Senna Plus] 3 tab PO DAILY Docusate Sodium/Sennosides [Senna Plus] 3 tab PO DAILY Donepezil [Aricept] 10 mg PO DAILY Metoprolol Succinate [Toprol XL] 25 mg PO DAILY Patient's Own Medication [Ptom] 0 each INH DAILY Patient's Own Medication [Ptom] 0 each PO DAILY Patient's Own Medication [Ptom] 0 each PO DAILY Patient's Own Medication [Ptom] 0 each PO DAILY Patient's Own Medication [Ptom] 0 each PO DAILY Patient's Own Medication [Ptom] 0 each PO DAILY Spironolactone [Aldactone] 25 mg PO DAILY 07/14/16 05:11 BASIC METABOLIC PANEL,BMP [CHEM] AM CBC WITH AUTO DIFF [HEME] AM MAGNESIUM [CHEM] AM 07/15/16 05:11 BASIC METABOLIC PANEL,BMP [CHEM] AM CBC WITH AUTO DIFF [HEME] AM MAGNESIUM [CHEM] AM 07/16/16 05:11 BASIC METABOLIC PANEL,BMP [CHEM] AM CBC WITH AUTO DIFF [HEME] AM MAGNESIUM [CHEM] AM 07/17/16 05:11 BASIC METABOLIC PANEL,BMP [CHEM] AM CBC WITH AUTO DIFF [HEME] AM MAGNESIUM [CHEM] AM 07/18/16 05:11 MAGNESIUM [CHEM] AM - Plan Plan:: Assessment/Plan: Acute Generalized Weakness - 2/2 Multi-factorial - Continue PT/OT Cutaneous Candidiasis - Risk factors: DM2 and Obesity - Continue oral anti-fungal medications Right Cheryle-orbital Ecchymosis and Small Forehead Laceration - Stable Self Neglect/Functional Decline - Lives in [facility], independent - Has Alzheimer's Dementia - per nurse she has fungal infection on groin area and skin folds - It appears she has not taken a shower in days-weeks High Risk Poly-pharmacy - She got more plenty of home medications Resolved: Status Post Fall - Likely mechanical - Carries hx/o Advanced OA/DJD - Continue PT/OT S/p Intractable Pain Status Post Fall - All imaging studies negative for acute fracture - Pain Management and PT/OT S/p AMS - She has underlying Alzheimer's Disease - Seems to be at baseline - High risk poly-pharmacy - UA shows no UTI - She is now at baseline Chronic: Impaired [place] and Vision Chronic Atrial Fibrillation, on Eliquis CAD HF with reduced EF 30-25% 06/06/16 Asthma/COPD Constipation CKD OA/DJD Osteopenia Gout Advanced Cardiac Valvular Dysfunction DM2 Alzheimer's Disease Thrombocytopenia BCC Actinic Keratosis Plan: She is fairly stable but still weak Continue current treatment Routine AM Labs Fall and Precautions SW/CM for d/c planning Recommend SNF/NH Code status: 1 Additional orders as above
[2016-07-13] MEDS: NYSTATIN 15 GM TOP SCH ×2 (11:25→21:09)
[2016-07-13] MEDS ORDERED: Sodium Chloride 0.9% 500 ML IV ONE (17:16)
[2016-07-13] MEDS ORDERED: Sodium Chloride 0.9% 1,000 ML ONE (17:25)
[2016-07-13] MEDS: Gabapentin 600 MG Tab PO SCH (17:33)
[2016-07-13] MEDS ORDERED: Sodium Chloride 0.9% 250 ML IV ONE (18:38)
[2016-07-13] MEDS: Midodrine 5 MG Tab PO SCH (20:16)
[2016-07-13] MEDS: LATANOPROST EYEBOTH SCH (21:10)
[2016-07-14] MEDS: Midodrine 5 MG Tab PO SCH ×2 (06:12→11:33)
[2016-07-14] MEDS: Insulin Aspart 100 Units/ML 3 ML Pen SUBCUT SCH ×4 (06:22→22:07)
[2016-07-14] MEDS: Tiotropium Br/Olodaterol Hcl [Stiolto Respimat] INH SCH (08:17)
[2016-07-14] MEDS: ALBUTEROL SULFATE INH PRN ×2 (08:17→20:40)
[2016-07-14] MEDS: Digoxin 125 MCG Tab PO SCH (09:14)
[2016-07-14] MEDS: Acetaminophen 325 MG Tab PO SCH ×2 (09:15→21:59)
[2016-07-14] MEDS: Apixaban 5 MG Tab PO SCH ×2 (09:15→22:00)
[2016-07-14] MEDS: Donepezil 10 MG Tab PO SCH (09:15)
[2016-07-14] MEDS: Cholecalciferol (Vitamin D3) 1,000 Unit Tab PO SCH (09:15)
[2016-07-14] MEDS: Allopurinol 100 MG Tab PO SCH (09:16)
[2016-07-14] MEDS: Insulin Detemir 100 Units/ML 3 ML Pen SUBCUT SCH (09:19)
[2016-07-14] MEDS: CALCIUM POLYCARBOPHIL PO SCH (09:27)
[2016-07-14] MEDS: [UNRECOGNIZED DRUG - OTHER] PO SCH (09:28)
[2016-07-14] MEDS: VALSARTAN PO SCH ×2 (09:28→22:06)
[2016-07-14] MEDS: GLUCOSAMINE PO SCH (09:28)
[2016-07-14] MEDS: D3 PO SCH (09:28)
[2016-07-14] MEDS: LINAGLIPTIN 5 MG PO SCH (09:28)
[2016-07-14] MEDS: SACUBITRIL PO SCH ×2 (09:28→22:06)
[2016-07-14] MEDS: Vitamin B Complex 1 EACH PO SCH (09:29)
[2016-07-14] MEDS: CARBOXYMETHYLCELLULOSE SODIUM EYEBOTH SCH ×2 (09:31→22:05)
[2016-07-14] MEDS: Nystatin Crm 30 GM Tube TOP SCH ×2 (10:16→22:00)
[2016-07-14] MEDS: NYSTATIN 15 GM TOP SCH (10:17)
--- NOTE | 2016-07-14 10:53 | PCM.PN ---
- General Info Date of Service: 07/14/16 Admission Dx/Problem (Free Text): Admission Diagnosis/Problem Admission Diagnosis/Problem Fall Subjective Update: Follow Up Functional Status: Reports: pain controlled, tolerating diet, urinating. Denies : new symptoms - Review of Systems General: Denies: Fever, Weakness, Fatigue, Malaise, Chills HEENT: Reports: no symptoms. Denies: contact lenses Pulmonary: Denies: shortness of breath Cardiovascular: Denies: Chest Pain Gastrointestinal: Denies: Abdominal pain, Nausea, Vomiting Genitourinary: Reports: no symptoms Musculoskeletal: Reports: no symptoms Skin: Reports: bruising Neurological: Reports: Difficulty Walking, Gait Disturbance. Denies: Confusion Psychiatric: Denies: depression, anxiety, hallucinations Systems Review Comment:: No overnight issues. She is still hypotensive but asymptomatic. She complaints of soreness on her right eye brow. She has no other new complaints. - Patient Data Vitals - most recent: Last Vital Signs Temp 36.5 C 07/14/16 07:47 Pulse 85 07/14/16 07:47 Resp 18 07/14/16 07:47 BP 75/39 L 07/14/16 07:47 Pulse Ox 93 L 07/14/16 08:18 Weight - most recent: 81.783 kg I&O - last 24 hours: Intake & Output 07/13/16 07/14/16 07/14/16 22:59 06:59 14:59 Intake Total 935 800 0 Output Total 400 Balance 935 400 0 Lab Results last 24 hrs: Laboratory Results - last 24 hr 07/13/16 07/14/16 07/14/16 Range/Units 21:07 06:14 06:30 WBC 5.83 (3.98-10.04) K/mm3 RBC 4.38 (3.98-5.22) M/mm3 Hgb 13.9 (11.2-15.7) gm/L Hct 43.5 (34.1-44.9) % MCV 99.3 H (79.4-94.8) fl MCH 31.7 (25.6-32.2) pg MCHC 32.0 L (32.2-35.5) g/dl RDW Std Deviation 57.7 H (36.4-46.3) fL Plt Count 146 L (182-369) K/mm3 MPV 10.9 (9.4-12.3) fl Neut % (Auto) 52.2 (34.0-71.1) % Lymph % (Auto) 27.8 (19.3-51.7) % [place] % (Auto) 10.5 (4.7-12.5) % Eos % (Auto) 8.7 H (0.7-5.8) Baso % (Auto) 0.5 (0.1-1.2) % Neut # 3.04 (1.56-6.13) K/mm3 Lymph # 1.62 (1.18-3.74) K/mm3 [place] # 0.61 H (0.24-0.36) K/mm3 Eos # 0.51 H (0.04-0.36) K/mm3 Baso # 0.03 (0.01-0.08) K/mm3 Sodium (136-145) mEq/L Potassium (3.5-5.1) mEq/L Chloride (98-107) mEq/L Carbon Dioxide (21-32) mEq/L Anion Gap (5-15) BUN (7-18) mg/dL Creatinine (0.55-1.02) mg/dL Est Cr Clr Drug Dosing mL/min Estimated GFR (MDRD) (>60) mL/min BUN/Creatinine Ratio (14-18) Glucose (83-115) mg/dL POC Glucose 116 H 108 (83-110) mg/dL Calcium (8.5-10.1) mg/dL Magnesium (1.8-2.4) mg/dl 07/14/16 Range/Units 06:30 WBC (3.98-10.04) K/mm3 RBC (3.98-5.22) M/mm3 Hgb (11.2-15.7) gm/L Hct (34.1-44.9) % MCV (79.4-94.8) fl MCH (25.6-32.2) pg MCHC (32.2-35.5) g/dl RDW Std Deviation (36.4-46.3) fL Plt Count (182-369) K/mm3 MPV (9.4-12.3) fl Neut % (Auto) (34.0-71.1) % Lymph % (Auto) (19.3-51.7) % [place] % (Auto) (4.7-12.5) % Eos % (Auto) (0.7-5.8) Baso % (Auto) (0.1-1.2) % Neut # (1.56-6.13) K/mm3 Lymph # (1.18-3.74) K/mm3 [place] # (0.24-0.36) K/mm3 Eos # (0.04-0.36) K/mm3 Baso # (0.01-0.08) K/mm3 Sodium 135 L (136-145) mEq/L Potassium 5.0 (3.5-5.1) mEq/L Chloride 100 (98-107) mEq/L Carbon Dioxide 25 (21-32) mEq/L Anion Gap 15.0 (5-15) BUN 63 H (7-18) mg/dL Creatinine 1.9 H (0.55-1.02) mg/dL Est Cr Clr Drug Dosing 16.04 mL/min Estimated GFR (MDRD) 25 (>60) mL/min BUN/Creatinine Ratio 33.2 H (14-18) Glucose 94 (83-115) mg/dL POC Glucose (83-110) mg/dL Calcium 8.1 L (8.5-10.1) mg/dL Magnesium 2.2 (1.8-2.4) mg/dl Justin Results last 24 hrs: Microbiology 07/12/16 19:00 Urine Culture - Final Urine, Clean Catch MIXED KRISTYN SUGGESTIVE OF CONTAMINATION. 07/12/16 21:39 MRSA Surveillance Culture - Final Nasal, Unspecified NO MRSA ISOLATED Med Orders - Current: Current Medications Acetaminophen (Tylenol) 650 mg PO Q4H PRN PRN Reason: Pain (Mild 1-3)/fever Acetaminophen (Tylenol) 650 mg PO BID [facility] Last Admin: 07/14/16 09:15 Dose: 650 mg Acetaminophen/Hydrocodone Bitart ([place] 325-5 Mg) 1 tab PO Q12HR PRN PRN Reason: Pain Last Admin: 07/13/16 11:26 Dose: 1 tab Albuterol/Ipratropium (Duoneb 3.0-0.5 Mg/3 Ml) 3 ml NEB Q4H PRN PRN Reason: Shortness Of Breath/wheezing Allopurinol (Zyloprim) 200 mg PO DAILY [facility] Last Admin: 07/14/16 09:16 Dose: 200 mg Apixaban (Eliquis) 2.5 mg PO BID [facility] Last Admin: 07/14/16 09:15 Dose: 2.5 mg Bisacodyl (Dulcolax) 5 mg PO DAILY PRN PRN Reason: Constipation Cholecalciferol (Vitamin D3) 1,000 units PO DAILY [facility] Last Admin: 07/14/16 09:15 Dose: 1,000 units Dextrose/Water (Dextrose 50% In Water) 50 ml IVPUSH ASDIRECTED PRN PRN Reason: Hypoglycemia Digoxin (Lanoxin) 62.5 mcg PO DAILY [facility] Last Admin: 07/14/16 09:14 Dose: 62.5 mcg Donepezil HCl (Aricept) 10 mg PO DAILY [facility] Last Admin: 07/14/16 09:15 Dose: 10 mg Ferrous Sulfate (Ferrous Sulfate) 325 mg PO MoThSa [facility] Last Admin: 07/12/16 14:43 Dose: 325 mg Flunisolide (Nasalide Nasal [place]) 0 ml NASBOTH DAILY PRN PRN Reason: STUFFY NOSE Furosemide (Lasix) 60 mg PO DAILY [facility] Last Admin: 07/13/16 09:25 Dose: 60 mg Gabapentin (Neurontin) 600 mg PO QPM [facility] Last Admin: 07/13/16 17:33 Dose: 600 mg Hydromorphone HCl (Dilaudid) 0.25 mg IVPUSH Q2H PRN PRN Reason: Pain (severe 7-10) Promethazine HCl 12.5 mg/ (Sodium Chloride) 50.5 mls @ 100 mls/hr IV Q6H PRN PRN Reason: Nausea/Vomiting Insulin Aspart (Novolog) 0 unit SUBCUT QIDACANDBED [facility] PRN Reason: Protocol Last Admin: 07/14/16 06:22 Dose: Not Given Insulin Detemir (Levemir) 25 unit SUBCUT QAM [facility] Last Admin: 07/14/16 09:19 Dose: 25 units Lorazepam (Ativan) 0.5 mg IV Q6H PRN PRN Reason: Anxiety Magnesium Hydroxide (Milk Of Magnesia) 30 ml PO Q12H PRN PRN Reason: Constipation Metoprolol Succinate (Toprol Xl) 25 mg PO DAILY [facility] Last Admin: 07/13/16 09:45 Dose: 25 mg Midodrine (Midodrine) 5 mg PO TIDAC [facility] Stop: 07/14/16 11:01 Last Admin: 07/14/16 06:12 Dose: 5 mg Nystatin (Nystatin Crm) 0 gm TOP BID [facility] Last Admin: 07/14/16 10:16 Dose: 1 applic Ondansetron HCl (Zofran) 4 mg IV Q6H PRN PRN Reason: Nausea/Vomiting Albuterol Sulfate [ (Ventolin]) 0 each INH ASDIRECTED PRN PRN Reason: Shortness of Breath Last Admin: 07/14/16 08:17 Dose: 2 each Trolamine Salicylate (/Aloe Vera 85 Gm) 0 each TOP QID PRN PRN Reason: Pain Fluconazole [ (Diflucan] 200 Mg) 0 each PO Q72H [facility] Last Admin: 07/12/16 14:43 Dose: 1 each Carboxymethylcellulo (se Sodium 1 Drop) 0 each EYEBOTH BID [facility] Last Admin: 07/14/16 09:31 Dose: 1 each Latanoprost [Xalatan 0.005% Oph Soln] 2.5 Ml 0 each EYEBOTH BEDTIME [facility] Last Admin: 07/13/16 21:10 Dose: 1 each Sacubitril/Valsartan [Entresto 24 Mg-26 Mg Tablet] 1 Each 0 each PO BID [facility] Last Admin: 07/14/16 09:28 Dose: 1 each Calcium Polycarbophil [Fiber Tabs] 3 Tab 0 each PO DAILY [facility] Last Admin: 07/14/16 09:27 Dose: 3 each Cetirizine 10 Mg 0 each PO DAILY [facility] Last Admin: 07/14/16 09:27 Dose: 1 each Glucosamine/D3/Boswellia Aby [ Osteo Bi-Flex Caplet ] 1 E 0 each PO DAILY [facility] Last Admin: 07/14/16 09:28 Dose: 1 each Linagliptin [ (Tradjenta] 5 Mg) 0 each PO DAILY [facility] Last Admin: 07/14/16 09:28 Dose: 1 each Tiotropium Br/Olodaterol Hcl [ Stiolto Respimat] 0 each INH DAILY [facility] Last Admin: 07/14/16 08:17 Dose: 2 each Vitamin B Complex 1 (Each) 0 each PO DAILY [facility] Last Admin: 07/14/16 09:29 Dose: 1 each Polyethylene Glycol (Miralax) 17 gm PO DAILY PRN PRN Reason: Constipation Senna/Docusate Sodium (Senna Plus) 1 tab PO BID PRN PRN Reason: Constipation Senna/Docusate Sodium (Senna Plus) 3 tab PO DAILY [facility] Last Admin: 07/14/16 09:14 Dose: 3 tab Sodium Chloride (Saline Flush) 10 ml FLUSH ASDIRECTED PRN PRN Reason: Keep Vein Open Last Admin: 07/12/16 07:38 Dose: 10 ml Spironolactone (Aldactone) 25 mg PO DAILY [facility] Last Admin: 07/13/16 09:20 Dose: 25 mg Temazepam (Restoril) 7.5 mg PO BEDTIME PRN PRN Reason: Sleep Discontinued Medications Acetaminophen/Hydrocodone Bitart ([place] 325-5 Mg) 1 tab PO Q4H PRN PRN Reason: Pain (moderate 4-6) Last Admin: 07/12/16 14:42 Dose: 1 tab Ceftriaxone Sodium (Rocephin) Confirm Administered Dose 1 gm IV .STK-MED ONE Stop: 07/12/16 10:11 Last Admin: 07/12/16 11:08 Dose: Not Given Enoxaparin Sodium (Lovenox) 30 mg SUBCUT DAILY [facility] Last Admin: 07/12/16 14:34 Dose: Not Given Enoxaparin Sodium (Lovenox) 30 mg SUBCUT DAILY [facility] Hydromorphone HCl (Dilaudid) 0.5 mg IVPUSH ONETIME ONE Stop: 07/12/16 09:28 Last Admin: 07/12/16 09:39 Dose: 0.5 mg Ceftriaxone Sodium 1 gm/ (Sodium Chloride) 100 mls @ 200 mls/hr IV ONETIME ONE Stop: 07/12/16 09:56 Last Admin: 07/12/16 09:38 Dose: 200 mls/hr Sodium Chloride (Normal Saline) Confirm Administered Dose 100 mls @ as directed .ROUTE .STK-MED ONE Stop: 07/12/16 10:11 Last Admin: 07/12/16 14:33 Dose: Not Given Sodium Chloride (Normal Saline) 500 mls @ 999 mls/hr IV .BOLUS ONE Stop: 07/13/16 17:46 Last Admin: 07/13/16 17:29 Dose: 999 mls/hr Sodium Chloride (Normal Saline) Confirm Administered Dose 1,000 mls @ as directed .ROUTE .STK-MED ONE Stop: 07/13/16 17:26 Last Admin: 07/13/16 20:18 Dose: 250 ml Sodium Chloride (Normal Saline) 250 mls @ 499.445 mls/hr IV .BOLUS ONE Stop: 07/13/16 19:08 Last Admin: 07/13/16 20:19 Dose: Not Given Lidocaine/Epinephrine (Xylocaine 1% With Epinephrine 1:100,000) 20 ml INJECT ONETIME ONE Stop: 07/12/16 07:00 Last Admin: 07/12/16 14:33 Dose: Not Given Non-Formulary Medication (Albuterol Sulfate [Proair Respiclick]) 2 puff INH BID [facility] Nystatin 15 Gm 0 gm TOP BID [facility] Last Admin: 07/14/16 10:17 Dose: Not Given Senna/Docusate Sodium (Senna Plus) 3 tab PO DAILY [facility] Last Admin: 07/13/16 18:38 Dose: Not Given - Exam General: alert, cooperative, no acute distress HEENT: Pupils equal, Pupils reactive, EOMI, Mucous membr. moist/pink, Other ( right cheryle-orbital ecchymosis and small laceration on eye brow) Lungs: Clear to auscultation, Normal respiratory effort Cardiovascular: Irregular Rhythm, Other (irregular rate) Abdomen: bowel sounds present, soft, no tenderness, no distension (Female) Exam: Deferred Back Exam: normal inspection, decreased range of motion Extremities: no edema, normal pulses, no tenderness/swelling, no clubbing, no cyanosis, no calf tenderness Peripheral Pulses: 2+: dorsalis pedis (L), dorsalis pedis (R) Skin: warm, dry, intact Wound/Incisions: healing well, erythema improving Neurological: no new focal deficit Psy/Mental Status: alert, normal affect, normal mood - Problem List Review Problem List Initiated/Reviewed/Updated: Yes - My Orders Last 24 Hours: My Active Orders 07/13/16 20:00 Patient Status [ADT] Routine Midodrine 5 mg PO TIDAC 07/13/16 22:47 Telemetry Monitoring [Cardiac Monitoring] [RC] . DIRECTED 07/14/16 09:45 Nystatin [Nystatin Crm] 0 gm TOP BID 07/15/16 05:11 BASIC METABOLIC PANEL,BMP [CHEM] AM CBC WITH AUTO DIFF [HEME] AM MAGNESIUM [CHEM] AM 07/16/16 05:11 BASIC METABOLIC PANEL,BMP [CHEM] AM CBC WITH AUTO DIFF [HEME] AM MAGNESIUM [CHEM] AM 07/17/16 05:11 BASIC METABOLIC PANEL,BMP [CHEM] AM CBC WITH AUTO DIFF [HEME] AM MAGNESIUM [CHEM] AM 07/18/16 05:11 MAGNESIUM [CHEM] AM - Plan Plan:: Assessment/Plan: Acute: Relatively Hypotension - She is asymptomatic - Likely has autonomic Dysfunction - Continue Midodrine TID and Compression stockings - All BP meds stopped, digoxin continued for rate control Generalized Weakness - 2/2 Multi-factorial - Continue PT/OT Cutaneous Candidiasis - Risk factors: DM2 and Obesity - Continue oral anti-fungal medications Right Cheryle-orbital Ecchymosis and Small Forehead Laceration - Stable Self Neglect/Functional Decline - Lives in [facility], independent - Has Alzheimer's Dementia - per nurse she has fungal infection on groin area and skin folds - It appears she has not taken a shower in days-weeks High Risk Poly-pharmacy - She got more plenty of home medications Resolved: Status Post Fall - Likely mechanical - Carries hx/o Advanced OA/DJD - Continue PT/OT S/p Intractable Pain Status Post Fall - All imaging studies negative for acute fracture - Pain Management and PT/OT S/p AMS - She has underlying Alzheimer's Disease - Seems to be at baseline - High risk poly-pharmacy - UA shows no UTI - She is now at baseline Chronic: Impaired [place] and Vision Chronic Atrial Fibrillation, on Eliquis CAD HF with reduced EF 30-25% 06/06/16 Asthma/COPD Constipation CKD OA/DJD Osteopenia Gout Advanced Cardiac Valvular Dysfunction DM2 Alzheimer's Disease Thrombocytopenia BCC Actinic Keratosis Plan: Continue current treatment Routine AM Labs Fall and ing Precautions SW/CM for d/c planning Recommend SNF/NH Code status: 1 Additional orders as above Will try to improve BP before d/c
[2016-07-14] MEDS: Gabapentin 600 MG Tab PO SCH (17:46)
[2016-07-14] MEDS: LATANOPROST EYEBOTH SCH (22:06)
[2016-07-15] MEDS: Insulin Aspart 100 Units/ML 3 ML Pen SUBCUT SCH ×4 (06:42→23:13)
[2016-07-15] MEDS: Midodrine 5 MG Tab PO SCH ×3 (06:56→16:56)
[2016-07-15] MEDS: ALBUTEROL SULFATE INH PRN (09:03)
[2016-07-15] MEDS: Tiotropium Br/Olodaterol Hcl [Stiolto Respimat] INH SCH (09:03)
[2016-07-15] MEDS: Cholecalciferol (Vitamin D3) 1,000 Unit Tab PO SCH (09:55)
[2016-07-15] MEDS: Donepezil 10 MG Tab PO SCH (09:55)
[2016-07-15] MEDS: Digoxin 125 MCG Tab PO SCH (09:55)
[2016-07-15] MEDS: Nystatin Crm 30 GM Tube TOP SCH ×2 (09:57→21:24)
[2016-07-15] MEDS: Allopurinol 100 MG Tab PO SCH (09:58)
[2016-07-15] MEDS: Apixaban 5 MG Tab PO SCH ×2 (09:58→21:17)
[2016-07-15] MEDS: Insulin Detemir 100 Units/ML 3 ML Pen SUBCUT SCH (09:59)
[2016-07-15] MEDS: CARBOXYMETHYLCELLULOSE SODIUM EYEBOTH SCH ×2 (09:59→21:25)
--- NOTE | 2016-07-15 10:05 | PCM.PN ---
- General Info Date of Service: 07/15/16 Admission Dx/Problem (Free Text): Admission Diagnosis/Problem Admission Diagnosis/Problem Fall Subjective Update: Follow Up Functional Status: Reports: pain controlled, tolerating diet, urinating. Denies : ambulating, new symptoms - Review of Systems General: Denies: Fever, Weakness, Fatigue, Malaise, Chills HEENT: Reports: no symptoms Pulmonary: Denies: shortness of breath Cardiovascular: Denies: Chest Pain, Palpitations, Dyspnea on Exertion, Lightheadedness Gastrointestinal: Denies: Abdominal pain, Nausea, Vomiting Genitourinary: Reports: no symptoms Musculoskeletal: Reports: no symptoms Skin: Reports: bruising Neurological: Reports: Confusion, Pre-Existing Deficit, Difficulty Walking, Weakness, Gait Disturbance. Denies: Dizziness Psychiatric: Denies: depression, anxiety, hallucinations Systems Review Comment:: No overnight or acute issues. She is doing relatively well. She has no new complaints. Her BPs are slowing coming up. - Patient Data Vitals - most recent: Last Vital Signs Temp 36.7 C 07/15/16 08:04 Pulse 86 07/15/16 09:55 Resp 18 07/15/16 08:04 BP 124/62 07/15/16 08:04 Pulse Ox 94 L 07/15/16 09:04 Weight - most recent: 82.1 kg I&O - last 24 hours: Intake & Output 07/14/16 07/15/16 07/15/16 22:59 06:59 14:59 Intake Total 480 400 Output Total 175 Balance 305 400 Lab Results last 24 hrs: Laboratory Results - last 24 hr 07/14/16 07/14/16 07/14/16 Range/Units 11:31 17:43 19:13 WBC (3.98-10.04) K/mm3 RBC (3.98-5.22) M/mm3 Hgb (11.2-15.7) gm/L Hct (34.1-44.9) % MCV (79.4-94.8) fl MCH (25.6-32.2) pg MCHC (32.2-35.5) g/dl RDW Std Deviation (36.4-46.3) fL Plt Count (182-369) K/mm3 MPV (9.4-12.3) fl Neut % (Auto) (34.0-71.1) % Lymph % (Auto) (19.3-51.7) % Nash % (Auto) (4.7-12.5) % Eos % (Auto) (0.7-5.8) Baso % (Auto) (0.1-1.2) % Neut # (1.56-6.13) K/mm3 Lymph # (1.18-3.74) K/mm3 Nash # (0.24-0.36) K/mm3 Eos # (0.04-0.36) K/mm3 Baso # (0.01-0.08) K/mm3 Manual Slide Review Sodium (136-145) mEq/L Potassium (3.5-5.1) mEq/L Chloride (98-107) mEq/L Carbon Dioxide (21-32) mEq/L Anion Gap (5-15) BUN (7-18) mg/dL Creatinine (0.55-1.02) mg/dL Est Cr Clr Drug Dosing mL/min Estimated GFR (MDRD) (>60) mL/min BUN/Creatinine Ratio (14-18) Glucose (83-115) mg/dL POC Glucose 120 H 75 L 98 (83-110) mg/dL Calcium (8.5-10.1) mg/dL Magnesium (1.8-2.4) mg/dl 07/14/16 07/15/16 07/15/16 Range/Units 22:03 05:45 05:45 WBC 5.22 (3.98-10.04) K/mm3 RBC 4.32 (3.98-5.22) M/mm3 Hgb 13.6 (11.2-15.7) gm/L Hct 42.9 (34.1-44.9) % MCV 99.3 H (79.4-94.8) fl MCH 31.5 (25.6-32.2) pg MCHC 31.7 L (32.2-35.5) g/dl RDW Std Deviation 56.3 H (36.4-46.3) fL Plt Count 155 L (182-369) K/mm3 MPV 10.7 (9.4-12.3) fl Neut % (Auto) 46.7 (34.0-71.1) % Lymph % (Auto) 33.7 (19.3-51.7) % Nash % (Auto) 11.3 (4.7-12.5) % Eos % (Auto) 7.7 H (0.7-5.8) Baso % (Auto) 0.4 (0.1-1.2) % Neut # 2.44 (1.56-6.13) K/mm3 Lymph # 1.76 (1.18-3.74) K/mm3 Nash # 0.59 H (0.24-0.36) K/mm3 Eos # 0.40 H (0.04-0.36) K/mm3 Baso # 0.02 (0.01-0.08) K/mm3 Manual Slide Review Normal smear Sodium 135 L (136-145) mEq/L Potassium 4.5 (3.5-5.1) mEq/L Chloride 101 (98-107) mEq/L Carbon Dioxide 23 (21-32) mEq/L Anion Gap 15.5 H (5-15) BUN 69 H (7-18) mg/dL Creatinine 1.8 H (0.55-1.02) mg/dL Est Cr Clr Drug Dosing 16.93 mL/min Estimated GFR (MDRD) 27 (>60) mL/min BUN/Creatinine Ratio 38.3 H (14-18) Glucose 69 L (83-115) mg/dL POC Glucose 88 (83-110) mg/dL Calcium 8.1 L (8.5-10.1) mg/dL Magnesium 2.4 (1.8-2.4) mg/dl //17 Range/Units 06:34 WBC (3.98-10.04) K/mm3 RBC (3.98-5.22) M/mm3 Hgb (11.2-15.7) gm/L Hct (34.1-44.9) % MCV (79.4-94.8) fl MCH (25.6-32.2) pg MCHC (32.2-35.5) g/dl RDW Std Deviation (36.4-46.3) fL Plt Count (182-369) K/mm3 MPV (9.4-12.3) fl Neut % (Auto) (34.0-71.1) % Lymph % (Auto) (19.3-51.7) % Nash % (Auto) (4.7-12.5) % Eos % (Auto) (0.7-5.8) Baso % (Auto) (0.1-1.2) % Neut # (1.56-6.13) K/mm3 Lymph # (1.18-3.74) K/mm3 Nash # (0.24-0.36) K/mm3 Eos # (0.04-0.36) K/mm3 Baso # (0.01-0.08) K/mm3 Manual Slide Review Sodium (136-145) mEq/L Potassium (3.5-5.1) mEq/L Chloride (98-107) mEq/L Carbon Dioxide (21-32) mEq/L Anion Gap (5-15) BUN (7-18) mg/dL Creatinine (0.55-1.02) mg/dL Est Cr Clr Drug Dosing mL/min Estimated GFR (MDRD) (>60) mL/min BUN/Creatinine Ratio (14-18) Glucose (83-115) mg/dL POC Glucose 95 (83-110) mg/dL Calcium (8.5-10.1) mg/dL Magnesium (1.8-2.4) mg/dl Justin Results last 24 hrs: Microbiology 07/12/16 19:00 Urine Culture - Final Urine, Clean Catch MIXED KRISTYN SUGGESTIVE OF CONTAMINATION. 07/12/16 21:39 MRSA Surveillance Culture - Final Nasal, Unspecified NO MRSA ISOLATED Med Orders - Current: Current Medications Acetaminophen (Tylenol) 650 mg PO Q4H PRN PRN Reason: Pain (Mild 1-3)/fever Last Admin: 07/15/16 09:56 Dose: 650 mg Acetaminophen (Tylenol) 650 mg PO BID [facility] Last Admin: 07/14/16 21:59 Dose: 650 mg Acetaminophen/Hydrocodone Bitart ([place] 325-5 Mg) 1 tab PO Q12HR PRN PRN Reason: Pain Last Admin: 07/13/16 11:26 Dose: 1 tab Albuterol/Ipratropium (Duoneb 3.0-0.5 Mg/3 Ml) 3 ml NEB Q4H PRN PRN Reason: Shortness Of Breath/wheezing Allopurinol (Zyloprim) 200 mg PO DAILY [facility] Last Admin: 07/15/16 09:58 Dose: 200 mg Apixaban (Eliquis) 2.5 mg PO BID [facility] Last Admin: 07/15/16 09:58 Dose: 2.5 mg Bisacodyl (Dulcolax) 5 mg PO DAILY PRN PRN Reason: Constipation Cholecalciferol (Vitamin D3) 1,000 units PO DAILY [facility] Last Admin: 07/15/16 09:55 Dose: 1,000 units Dextrose/Water (Dextrose 50% In Water) 50 ml IVPUSH ASDIRECTED PRN PRN Reason: Hypoglycemia Digoxin (Lanoxin) 62.5 mcg PO DAILY [facility] Last Admin: 07/15/16 09:55 Dose: 62.5 mcg Donepezil HCl (Aricept) 10 mg PO DAILY [facility] Last Admin: 07/15/16 09:55 Dose: 10 mg Ferrous Sulfate (Ferrous Sulfate) 325 mg PO MoThSa [facility] Last Admin: 07/12/16 14:43 Dose: 325 mg Flunisolide (Nasalide Nasal [place]) 0 ml NASBOTH DAILY PRN PRN Reason: STUFFY NOSE Furosemide (Lasix) 60 mg PO DAILY [facility] Last Admin: 07/13/16 09:25 Dose: 60 mg Gabapentin (Neurontin) 600 mg PO QPM [facility] Last Admin: 07/14/16 17:46 Dose: 600 mg Hydromorphone HCl (Dilaudid) 0.25 mg IVPUSH Q2H PRN PRN Reason: Pain (severe 7-10) Promethazine HCl 12.5 mg/ (Sodium Chloride) 50.5 mls @ 100 mls/hr IV Q6H PRN PRN Reason: Nausea/Vomiting Insulin Aspart (Novolog) 0 unit SUBCUT QIDACANDBED [facility] PRN Reason: Protocol Last Admin: 07/15/16 06:42 Dose: Not Given Insulin Detemir (Levemir) 25 unit SUBCUT QAM [facility] Last Admin: 07/15/16 09:59 Dose: 25 units Lorazepam (Ativan) 0.5 mg IV Q6H PRN PRN Reason: Anxiety Last Admin: 07/14/16 23:53 Dose: 0.5 mg Magnesium Hydroxide (Milk Of Magnesia) 30 ml PO Q12H PRN PRN Reason: Constipation Metoprolol Succinate (Toprol Xl) 25 mg PO DAILY [facility] Last Admin: 07/13/16 09:45 Dose: 25 mg Midodrine (Midodrine) 2.5 mg PO TIDAC [facility] Last Admin: 07/15/16 06:56 Dose: 2.5 mg Nystatin (Nystatin Crm) 0 gm TOP BID [facility] Last Admin: 07/15/16 09:57 Dose: 1 applic Ondansetron HCl (Zofran) 4 mg IV Q6H PRN PRN Reason: Nausea/Vomiting Albuterol Sulfate [ (Ventolin]) 0 each INH ASDIRECTED PRN PRN Reason: Shortness of Breath Last Admin: 07/15/16 09:03 Dose: 2 each Trolamine Salicylate (/Aloe Vera 85 Gm) 0 each TOP QID PRN PRN Reason: Pain Fluconazole [ (Diflucan] 200 Mg) 0 each PO Q72H [facility] Last Admin: 07/12/16 14:43 Dose: 1 each Carboxymethylcellulo (se Sodium 1 Drop) 0 each EYEBOTH BID [facility] Last Admin: 07/15/16 09:59 Dose: 1 each Latanoprost [Xalatan 0.005% Oph Soln] 2.5 Ml 0 each EYEBOTH BEDTIME [facility] Last Admin: 07/14/16 22:06 Dose: 1 each Sacubitril/Valsartan [Entresto 24 Mg-26 Mg Tablet] 1 Each 0 each PO BID [facility] Last Admin: 07/14/16 22:06 Dose: 1 each Calcium Polycarbophil [Fiber Tabs] 3 Tab 0 each PO DAILY [facility] Last Admin: 07/14/16 09:27 Dose: 3 each Cetirizine 10 Mg 0 each PO DAILY [facility] Last Admin: 07/14/16 09:27 Dose: 1 each Glucosamine/D3/Boswellia Aby [ Osteo Bi-Flex Caplet ] 1 E 0 each PO DAILY [facility] Last Admin: 07/14/16 09:28 Dose: 1 each Linagliptin [ (Tradjenta] 5 Mg) 0 each PO DAILY [facility] Last Admin: 07/14/16 09:28 Dose: 1 each Tiotropium Br/Olodaterol Hcl [ Stiolto Respimat] 0 each INH DAILY [facility] Last Admin: 07/15/16 09:03 Dose: 2 each Vitamin B Complex 1 (Each) 0 each PO DAILY [facility] Last Admin: 07/14/16 09:29 Dose: 1 each Polyethylene Glycol (Miralax) 17 gm PO DAILY PRN PRN Reason: Constipation Senna/Docusate Sodium (Senna Plus) 1 tab PO BID PRN PRN Reason: Constipation Senna/Docusate Sodium (Senna Plus) 3 tab PO DAILY [facility] Last Admin: 07/14/16 09:14 Dose: 3 tab Sodium Chloride (Saline Flush) 10 ml FLUSH ASDIRECTED PRN PRN Reason: Keep Vein Open Last Admin: 07/12/16 07:38 Dose: 10 ml Spironolactone (Aldactone) 25 mg PO DAILY [facility] Last Admin: 07/13/16 09:20 Dose: 25 mg Temazepam (Restoril) 7.5 mg PO BEDTIME PRN PRN Reason: Sleep Discontinued Medications Acetaminophen/Hydrocodone Bitart ([place] 325-5 Mg) 1 tab PO Q4H PRN PRN Reason: Pain (moderate 4-6) Last Admin: 07/12/16 14:42 Dose: 1 tab Ceftriaxone Sodium (Rocephin) Confirm Administered Dose 1 gm IV .STK-MED ONE Stop: 07/12/16 10:11 Last Admin: 07/12/16 11:08 Dose: Not Given Enoxaparin Sodium (Lovenox) 30 mg SUBCUT DAILY [facility] Last Admin: 07/12/16 14:34 Dose: Not Given Enoxaparin Sodium (Lovenox) 30 mg SUBCUT DAILY [facility] Hydromorphone HCl (Dilaudid) 0.5 mg IVPUSH ONETIME ONE Stop: 07/12/16 09:28 Last Admin: 07/12/16 09:39 Dose: 0.5 mg Ceftriaxone Sodium 1 gm/ (Sodium Chloride) 100 mls @ 200 mls/hr IV ONETIME ONE Stop: 07/12/16 09:56 Last Admin: 07/12/16 09:38 Dose: 200 mls/hr Sodium Chloride (Normal Saline) Confirm Administered Dose 100 mls @ as directed .ROUTE .STK-MED ONE Stop: 07/12/16 10:11 Last Admin: 07/12/16 14:33 Dose: Not Given Sodium Chloride (Normal Saline) 500 mls @ 999 mls/hr IV .BOLUS ONE Stop: 07/13/16 17:46 Last Admin: 07/13/16 17:29 Dose: 999 mls/hr Sodium Chloride (Normal Saline) Confirm Administered Dose 1,000 mls @ as directed .ROUTE .STK-MED ONE Stop: 07/13/16 17:26 Last Admin: 07/13/16 20:18 Dose: 250 ml Sodium Chloride (Normal Saline) 250 mls @ 499.445 mls/hr IV .BOLUS ONE Stop: 07/13/16 19:08 Last Admin: 07/13/16 20:19 Dose: Not Given Lidocaine/Epinephrine (Xylocaine 1% With Epinephrine 1:100,000) 20 ml INJECT ONETIME ONE Stop: 07/12/16 07:00 Last Admin: 07/12/16 14:33 Dose: Not Given Midodrine (Midodrine) 5 mg PO TIDAC JAMEL Stop: 07/14/16 11:01 Last Admin: 07/14/16 11:33 Dose: 5 mg Non-Formulary Medication (Albuterol Sulfate [Proair Respiclick]) 2 puff INH BID [facility] Nystatin 15 Gm 0 gm TOP BID [facility] Last Admin: 07/14/16 10:17 Dose: Not Given Senna/Docusate Sodium (Senna Plus) 3 tab PO DAILY [facility] Last Admin: 07/13/16 18:38 Dose: Not Given - Exam General: alert, oriented, cooperative, no acute distress, other (Obese ) HEENT: Pupils equal, Pupils reactive, EOMI, Mucous membr. moist/pink Neck: supple, trachea midline, no JVD, no thyromegaly, other (short and thick) Lungs: Normal respiratory effort, Decreased breath sounds Cardiovascular: Irregular Rhythm, Other (irregular rate) Abdomen: bowel sounds present, soft, no tenderness, no distension, other (Obese) (Female) Exam: Deferred Back Exam: normal inspection, decreased range of motion Extremities: no edema, normal pulses, no tenderness/swelling, no clubbing, no cyanosis, no calf tenderness Peripheral Pulses: 2+: dorsalis pedis (L), dorsalis pedis (R) Skin: warm, dry, intact Neurological: no new focal deficit Psy/Mental Status: alert, normal affect, normal mood - Problem List Review Problem List Initiated/Reviewed/Updated: Yes - My Orders Last 24 Hours: My Active Orders 07/14/16 09:45 Nystatin [Nystatin Crm] 0 gm TOP BID 07/14/16 20:14 CORNELIUS Hose Substitution [Sequential Compression Device] [OM.PC] Routine 07/14/16 20:15 Antiembolic Devices [RC] PER UNIT ROUTINE 07/15/16 07:00 Midodrine 2.5 mg PO TIDAC 07/16/16 05:11 BASIC METABOLIC PANEL,BMP [CHEM] AM CBC WITH AUTO DIFF [HEME] AM MAGNESIUM [CHEM] AM 07/17/16 05:11 BASIC METABOLIC PANEL,BMP [CHEM] AM CBC WITH AUTO DIFF [HEME] AM MAGNESIUM [CHEM] AM 07/18/16 05:11 MAGNESIUM [CHEM] AM - Plan Plan:: Assessment/Plan: Acute: Relatively Hypotension - She is asymptomatic - Likely has autonomic Dysfunction - Continue Midodrine TID and Compression stockings - Continue Digoxin for rate control - Will start BB with lower dose BID Generalized Weakness - 2/2 Multi-factorial - Continue PT/OT Cutaneous Candidiasis - Risk factors: DM2 and Obesity - Continue oral anti-fungal medications Right Cheryle-orbital Ecchymosis and Small Forehead Laceration - Stable Self Neglect/Functional Decline - Lives in [facility], independent - Has Alzheimer's Dementia - per nurse she has fungal infection on groin area and skin folds - It appears she has not taken a shower in days-weeks High Risk Poly-pharmacy - She got more plenty of home medications Resolved: Status Post Fall - Likely mechanical - Carries hx/o Advanced OA/DJD - Continue PT/OT S/p Intractable Pain Status Post Fall - All imaging studies negative for acute fracture - Pain Management and PT/OT S/p AMS - She has underlying Alzheimer's Disease - Seems to be at baseline - High risk poly-pharmacy - UA shows no UTI - She is now at baseline Chronic: Impaired [place] and Vision Chronic Atrial Fibrillation, on Eliquis CAD HF with reduced EF 30-25% 06/06/16 Asthma/COPD Constipation CKD OA/DJD Osteopenia Gout Advanced Cardiac Valvular Dysfunction DM2 Alzheimer's Disease Thrombocytopenia BCC Actinic Keratosis Plan: Continue current treatment Routine AM Labs Fall and Precautions SW/CM for d/c planning Recommend SNF/NH Code status: 1 Additional orders as above LOS anticipate > 96 hrs pending improvement of vitals and also for SNF/NH placement
[2016-07-15] MEDS: LINAGLIPTIN 5 MG PO SCH (10:10)
[2016-07-15] MEDS: Acetaminophen 325 MG Tab PO SCH ×2 (10:10→21:18)
[2016-07-15] MEDS: Vitamin B Complex 1 EACH PO SCH (10:13)
[2016-07-15] MEDS: SACUBITRIL PO SCH ×2 (10:14→21:25)
[2016-07-15] MEDS: VALSARTAN PO SCH ×2 (10:14→21:25)
[2016-07-15] MEDS: GLUCOSAMINE PO SCH (10:16)
[2016-07-15] MEDS: CALCIUM POLYCARBOPHIL PO SCH (10:16)
[2016-07-15] MEDS: D3 PO SCH (10:16)
[2016-07-15] MEDS: [UNRECOGNIZED DRUG - OTHER] PO SCH (10:16)
[2016-07-15] MEDS: Ferrous Sulfate 325 MG Tab PO SCH (12:41)
[2016-07-15] MEDS ORDERED: ALBUTEROL (VENTOLIN) INHALER INH PRN (16:53)
[2016-07-15] MEDS: FLUCONAZOLE 200 MG PO SCH (16:55)
[2016-07-15] MEDS: Gabapentin 600 MG Tab PO SCH (17:00)
[2016-07-15] MEDS: ALBUTEROL SULFATE INH SCH (19:55)
[2016-07-15] MEDS: LATANOPROST EYEBOTH SCH (21:18)
[2016-07-15] MEDS ORDERED: Metoprolol Succinate 25 MG Tab.ER PO SCH (23:29)
[2016-07-16] MEDS: Midodrine 5 MG Tab PO SCH ×3 (06:35→17:58)
[2016-07-16] MEDS: Insulin Aspart 100 Units/ML 3 ML Pen SUBCUT SCH ×4 (07:09→21:22)
[2016-07-16] MEDS: Tiotropium Br/Olodaterol Hcl [Stiolto Respimat] INH SCH (09:04)
[2016-07-16] MEDS: ALBUTEROL SULFATE INH SCH (09:04)
[2016-07-16] MEDS: Insulin Detemir 100 Units/ML 3 ML Pen SUBCUT SCH (09:56)
[2016-07-16] MEDS: CALCIUM POLYCARBOPHIL PO SCH (09:59)
[2016-07-16] MEDS: GLUCOSAMINE PO SCH (10:01)
[2016-07-16] MEDS: D3 PO SCH (10:01)
[2016-07-16] MEDS: [UNRECOGNIZED DRUG - OTHER] PO SCH (10:01)
[2016-07-16] MEDS: VALSARTAN PO SCH ×3 (10:02→21:26)
[2016-07-16] MEDS: Vitamin B Complex 1 EACH PO SCH (10:02)
[2016-07-16] MEDS: SACUBITRIL PO SCH ×3 (10:02→21:26)
[2016-07-16] MEDS: CARBOXYMETHYLCELLULOSE SODIUM EYEBOTH SCH ×2 (10:03→21:19)
[2016-07-16] MEDS: LINAGLIPTIN 5 MG PO SCH (10:03)
[2016-07-16] MEDS: Saccharomyces Boulardii (Probiotic) 250 MG Cap PO SCH ×2 (10:04→21:18)
[2016-07-16] MEDS: Nystatin Crm 30 GM Tube TOP SCH ×2 (10:04→21:18)
[2016-07-16] MEDS: Apixaban 5 MG Tab PO SCH ×2 (10:04→21:18)
[2016-07-16] MEDS: Allopurinol 100 MG Tab PO SCH (10:07)
[2016-07-16] MEDS: Digoxin 125 MCG Tab PO SCH (10:08)
[2016-07-16] MEDS: Acetaminophen 325 MG Tab PO SCH ×2 (10:09→21:20)
[2016-07-16] MEDS: metroNIDAZOLE 500 MG Tab PO SCH ×2 (10:09→17:58)
[2016-07-16] MEDS: Donepezil 10 MG Tab PO SCH (10:10)
[2016-07-16] MEDS: Spironolactone 25 MG Tab PO SCH (10:10)
[2016-07-16] MEDS: Furosemide 20 MG Tab PO SCH (10:10)
[2016-07-16] MEDS: Cholecalciferol (Vitamin D3) 1,000 Unit Tab PO SCH (10:10)
--- NOTE | 2016-07-16 13:34 | PCM.PN ---
- General Info Date of Service: 07/16/16 Admission Dx/Problem (Free Text): Admission Diagnosis/Problem Admission Diagnosis/Problem Fall Subjective Update: Follow Up Functional Status: Reports: pain controlled, tolerating diet, ambulating, urinating. Denies: new symptoms - Review of Systems General: Denies: Fever, Weakness, Fatigue, Malaise HEENT: Reports: no symptoms Pulmonary: Denies: shortness of breath Cardiovascular: Denies: Chest Pain, Palpitations, Dyspnea on Exertion Gastrointestinal: Denies: Abdominal pain, Constipation, Diarrhea, Nausea, Vomiting Genitourinary: Reports: no symptoms Musculoskeletal: Reports: no symptoms Skin: Denies: cyanosis, pruritis Neurological: Reports: Difficulty Walking, Gait Disturbance. Denies: Confusion Psychiatric: Denies: depression, anxiety, hallucinations Systems Review Comment:: No overnight or acute issues. She had a loose bowel movement and tested pos for C. diff. Her BPs have improved considerably. She has no new complaints. - Patient Data Vitals - most recent: Last Vital Signs Temp 36.4 C 07/16/16 12:46 Pulse 87 07/16/16 12:46 Resp 24 H 07/16/16 12:46 BP 100/54 L 07/16/16 12:46 Pulse Ox 93 L 07/16/16 12:46 Weight - most recent: 81.783 kg I&O - last 24 hours: Intake & Output 07/15/16 07/16/16 07/16/16 22:59 06:59 14:59 Intake Total 640 300 0 Output Total 400 525 Balance 240 -225 0 Lab Results last 24 hrs: Laboratory Results - last 24 hr 07/13/16 07/15/16 07/15/16 Range/Units 11:14 12:27 16:53 WBC (3.98-10.04) K/mm3 RBC (3.98-5.22) M/mm3 Hgb (11.2-15.7) gm/L Hct (34.1-44.9) % MCV (79.4-94.8) fl MCH (25.6-32.2) pg MCHC (32.2-35.5) g/dl RDW Std Deviation (36.4-46.3) fL Plt Count (182-369) K/mm3 MPV (9.4-12.3) fl Neut % (Auto) (34.0-71.1) % Lymph % (Auto) (19.3-51.7) % [place] % (Auto) (4.7-12.5) % Eos % (Auto) (0.7-5.8) Baso % (Auto) (0.1-1.2) % Neut # (1.56-6.13) K/mm3 Lymph # (1.18-3.74) K/mm3 [place] # (0.24-0.36) K/mm3 Eos # (0.04-0.36) K/mm3 Baso # (0.01-0.08) K/mm3 Manual Slide Review Sodium (136-145) mEq/L Potassium (3.5-5.1) mEq/L Chloride (98-107) mEq/L Carbon Dioxide (21-32) mEq/L Anion Gap (5-15) BUN (7-18) mg/dL Creatinine (0.55-1.02) mg/dL Est Cr Clr Drug Dosing mL/min Estimated GFR (MDRD) (>60) mL/min BUN/Creatinine Ratio (14-18) Glucose (83-115) mg/dL POC Glucose 152 H 112 H 113 H (83-110) mg/dL Calcium (8.5-10.1) mg/dL Magnesium (1.8-2.4) mg/dl C.difficile 027-[id number] C. difficile Tox (PCR) 07/15/16 07/16/16 07/16/16 Range/Units 20:42 02:18 06:56 WBC (3.98-10.04) K/mm3 RBC (3.98-5.22) M/mm3 Hgb (11.2-15.7) gm/L Hct (34.1-44.9) % MCV (79.4-94.8) fl MCH (25.6-32.2) pg MCHC (32.2-35.5) g/dl RDW Std Deviation (36.4-46.3) fL Plt Count (182-369) K/mm3 MPV (9.4-12.3) fl Neut % (Auto) (34.0-71.1) % Lymph % (Auto) (19.3-51.7) % [place] % (Auto) (4.7-12.5) % Eos % (Auto) (0.7-5.8) Baso % (Auto) (0.1-1.2) % Neut # (1.56-6.13) K/mm3 Lymph # (1.18-3.74) K/mm3 [place] # (0.24-0.36) K/mm3 Eos # (0.04-0.36) K/mm3 Baso # (0.01-0.08) K/mm3 Manual Slide Review Sodium (136-145) mEq/L Potassium (3.5-5.1) mEq/L Chloride (98-107) mEq/L Carbon Dioxide (21-32) mEq/L Anion Gap (5-15) BUN (7-18) mg/dL Creatinine (0.55-1.02) mg/dL Est Cr Clr Drug Dosing mL/min Estimated GFR (MDRD) (>60) mL/min BUN/Creatinine Ratio (14-18) Glucose (83-115) mg/dL POC Glucose 136 H 83 (83-110) mg/dL Calcium (8.5-10.1) mg/dL Magnesium (1.8-2.4) mg/dl C.difficile [id number] Presumptive negative C. difficile Tox (PCR) Positive H 07/16/16 07/16/16 07/16/16 Range/Units 07:16 07:16 11:13 WBC 4.83 (3.98-10.04) K/mm3 RBC 4.54 (3.98-5.22) M/mm3 Hgb 14.5 (11.2-15.7) gm/L Hct 44.8 (34.1-44.9) % MCV 98.7 H (79.4-94.8) fl MCH 31.9 (25.6-32.2) pg MCHC 32.4 (32.2-35.5) g/dl RDW Std Deviation 54.9 H (36.4-46.3) fL Plt Count 138 L (182-369) K/mm3 MPV 10.8 (9.4-12.3) fl Neut % (Auto) 43.3 (34.0-71.1) % Lymph % (Auto) 38.3 (19.3-51.7) % [place] % (Auto) 9.7 (4.7-12.5) % Eos % (Auto) 7.9 H (0.7-5.8) Baso % (Auto) 0.6 (0.1-1.2) % Neut # 2.09 (1.56-6.13) K/mm3 Lymph # 1.85 (1.18-3.74) K/mm3 [place] # 0.47 H (0.24-0.36) K/mm3 Eos # 0.38 H (0.04-0.36) K/mm3 Baso # 0.03 (0.01-0.08) K/mm3 Manual Slide Review Normal smear Sodium 137 (136-145) mEq/L Potassium 4.1 (3.5-5.1) mEq/L Chloride 104 (98-107) mEq/L Carbon Dioxide 24 (21-32) mEq/L Anion Gap 13.1 (5-15) BUN 62 H (7-18) mg/dL Creatinine 1.4 H (0.55-1.02) mg/dL Est Cr Clr Drug Dosing 21.77 mL/min Estimated GFR (MDRD) 36 (>60) mL/min BUN/Creatinine Ratio 44.3 H (14-18) Glucose 76 L (83-115) mg/dL POC Glucose 159 H (83-110) mg/dL Calcium 8.8 (8.5-10.1) mg/dL Magnesium 2.4 (1.8-2.4) mg/dl C.difficile 027-[id number] C. difficile Tox (PCR) Med Orders - Current: Current Medications Acetaminophen (Tylenol) 650 mg PO Q4H PRN PRN Reason: Pain (Mild 1-3)/fever Acetaminophen (Tylenol) 650 mg PO BID [facility] Last Admin: 07/16/16 10:09 Dose: 650 mg Acetaminophen/Hydrocodone Bitart (Orma 325-5 Mg) 1 tab PO Q12HR PRN PRN Reason: Pain Last Admin: 07/13/16 11:26 Dose: 1 tab Albuterol/Ipratropium (Duoneb 3.0-0.5 Mg/3 Ml) 3 ml NEB Q4H PRN PRN Reason: Shortness Of Breath/wheezing Allopurinol (Zyloprim) 200 mg PO DAILY [facility] Last Admin: 07/16/16 10:07 Dose: 200 mg Apixaban (Eliquis) 2.5 mg PO BID [facility] Last Admin: 07/16/16 10:04 Dose: 2.5 mg Bisacodyl (Dulcolax) 5 mg PO DAILY PRN PRN Reason: Constipation Cholecalciferol (Vitamin D3) 1,000 units PO DAILY [facility] Last Admin: 07/16/16 10:10 Dose: 1,000 units Dextrose/Water (Dextrose 50% In Water) 50 ml IVPUSH ASDIRECTED PRN PRN Reason: Hypoglycemia Digoxin (Lanoxin) 62.5 mcg PO DAILY [facility] Last Admin: 07/16/16 10:08 Dose: 62.5 mcg Donepezil HCl (Aricept) 10 mg PO DAILY [facility] Last Admin: 07/16/16 10:10 Dose: 10 mg Ferrous Sulfate (Ferrous Sulfate) 325 mg PO MoThSa [facility] Last Admin: 07/15/16 12:41 Dose: 325 mg Flunisolide (Nasalide Nasal [place]) 0 ml NASBOTH DAILY PRN PRN Reason: STUFFY NOSE Furosemide (Lasix) 40 mg PO DAILY [facility] Last Admin: 07/16/16 10:10 Dose: 40 mg Gabapentin (Neurontin) 600 mg PO QPM [facility] Last Admin: 07/15/16 17:00 Dose: 600 mg Hydromorphone HCl (Dilaudid) 0.25 mg IVPUSH Q2H PRN PRN Reason: Pain (severe 7-10) Promethazine HCl 12.5 mg/ (Sodium Chloride) 50.5 mls @ 100 mls/hr IV Q6H PRN PRN Reason: Nausea/Vomiting Insulin Aspart (Novolog) 0 unit SUBCUT QIDACANDBED [facility] PRN Reason: Protocol Last Admin: 07/16/16 11:55 Dose: 1 unit Insulin Detemir (Levemir) 25 unit SUBCUT QAM [facility] Last Admin: 07/16/16 09:56 Dose: 25 units Lorazepam (Ativan) 0.5 mg IV Q6H PRN PRN Reason: Anxiety Last Admin: 07/14/16 23:53 Dose: 0.5 mg Magnesium Hydroxide (Milk Of Magnesia) 30 ml PO Q12H PRN PRN Reason: Constipation Metoprolol Succinate (Toprol Xl) 12.5 mg PO DAILY [facility] Last Admin: 07/16/16 10:06 Dose: 12.5 mg Metronidazole (Flagyl) 500 mg PO Q8H [facility] Last Admin: 07/16/16 10:09 Dose: 500 mg Midodrine (Midodrine) 2.5 mg PO TIDAC [facility] Last Admin: 07/16/16 10:05 Dose: 2.5 mg Nystatin (Nystatin Crm) 0 gm TOP BID [facility] Last Admin: 07/16/16 10:04 Dose: 1 applic Ondansetron HCl (Zofran) 4 mg IV Q6H PRN PRN Reason: Nausea/Vomiting Trolamine Salicylate (/Aloe Vera 85 Gm) 0 each TOP QID PRN PRN Reason: Pain Fluconazole [ (Diflucan] 200 Mg) 0 each PO Q72H [facility] Last Admin: 07/15/16 16:55 Dose: 1 each Carboxymethylcellulo (se Sodium 1 Drop) 0 each EYEBOTH BID [facility] Last Admin: 07/16/16 10:03 Dose: 1 each Latanoprost [Xalatan 0.005% Oph Soln] 2.5 Ml 0 each EYEBOTH BEDTIME [facility] Last Admin: 07/15/16 21:18 Dose: 1 each Sacubitril/Valsartan [Entresto 24 Mg-26 Mg Tablet] 1 Each 0 each PO BID [facility] Last Admin: 07/16/16 10:02 Dose: 1 each Calcium Polycarbophil [Fiber Tabs] 3 Tab 0 each PO DAILY [facility] Last Admin: 07/16/16 09:59 Dose: 3 each Cetirizine 10 Mg 0 each PO DAILY [facility] Last Admin: 07/16/16 10:01 Dose: 1 each Glucosamine/D3/Boswellia Aby [ Osteo Bi-Flex Caplet ] 1 E 0 each PO DAILY [facility] Last Admin: 07/16/16 10:01 Dose: 1 each Linagliptin [ (Tradjenta] 5 Mg) 0 each PO DAILY [facility] Last Admin: 07/16/16 10:03 Dose: 1 each Tiotropium Br/Olodaterol Hcl [ Stiolto Respimat] 0 each INH DAILY [facility] Last Admin: 07/16/16 09:04 Dose: 2 each Vitamin B Complex 1 (Each) 0 each PO DAILY [facility] Last Admin: 07/16/16 10:02 Dose: 1 each Albuterol (Ventolin) (Inhaler) 0 each INH ASDIRECTED PRN PRN Reason: Shortness of Breath Albuterol Inhaler 0 each INH BID@0900,2100 [facility] Polyethylene Glycol (Miralax) 17 gm PO DAILY PRN PRN Reason: Constipation Saccharomyces Boulardii (Florastor) 250 mg PO BID [facility] Last Admin: 07/16/16 10:04 Dose: 250 mg Senna/Docusate Sodium (Senna Plus) 1 tab PO BID PRN PRN Reason: Constipation Senna/Docusate Sodium (Senna Plus) 3 tab PO DAILY [facility] Last Admin: 07/16/16 10:07 Dose: Not Given Sodium Chloride (Saline Flush) 10 ml FLUSH ASDIRECTED PRN PRN Reason: Keep Vein Open Last Admin: 07/12/16 07:38 Dose: 10 ml Spironolactone (Aldactone) 25 mg PO DAILY [facility] Last Admin: 07/16/16 10:10 Dose: 25 mg Temazepam (Restoril) 7.5 mg PO BEDTIME PRN PRN Reason: Sleep Discontinued Medications Acetaminophen/Hydrocodone Bitart (Orma 325-5 Mg) 1 tab PO Q4H PRN PRN Reason: Pain (moderate 4-6) Last Admin: 07/12/16 14:42 Dose: 1 tab Ceftriaxone Sodium (Rocephin) Confirm Administered Dose 1 gm IV .STK-MED ONE Stop: 07/12/16 10:11 Last Admin: 07/12/16 11:08 Dose: Not Given Enoxaparin Sodium (Lovenox) 30 mg SUBCUT DAILY [facility] Last Admin: 07/12/16 14:34 Dose: Not Given Enoxaparin Sodium (Lovenox) 30 mg SUBCUT DAILY [facility] Furosemide (Lasix) 60 mg PO DAILY [facility] Last Admin: 07/13/16 09:25 Dose: 60 mg Hydromorphone HCl (Dilaudid) 0.5 mg IVPUSH ONETIME ONE Stop: 07/12/16 09:28 Last Admin: 07/12/16 09:39 Dose: 0.5 mg Ceftriaxone Sodium 1 gm/ (Sodium Chloride) 100 mls @ 200 mls/hr IV ONETIME ONE Stop: 07/12/16 09:56 Last Admin: 07/12/16 09:38 Dose: 200 mls/hr Sodium Chloride (Normal Saline) Confirm Administered Dose 100 mls @ as directed .ROUTE .STK-MED ONE Stop: 07/12/16 10:11 Last Admin: 07/12/16 14:33 Dose: Not Given Sodium Chloride (Normal Saline) 500 mls @ 999 mls/hr IV .BOLUS ONE Stop: 07/13/16 17:46 Last Admin: 07/13/16 17:29 Dose: 999 mls/hr Sodium Chloride (Normal Saline) Confirm Administered Dose 1,000 mls @ as directed .ROUTE .STK-MED ONE Stop: 07/13/16 17:26 Last Admin: 07/13/16 20:18 Dose: 250 ml Sodium Chloride (Normal Saline) 250 mls @ 499.445 mls/hr IV .BOLUS ONE Stop: 07/13/16 19:08 Last Admin: 07/13/16 20:19 Dose: Not Given Lidocaine/Epinephrine (Xylocaine 1% With Epinephrine 1:100,000) 20 ml INJECT ONETIME ONE Stop: 07/12/16 07:00 Last Admin: 07/12/16 14:33 Dose: Not Given Metoprolol Succinate (Toprol Xl) 25 mg PO DAILY [facility] Last Admin: 07/13/16 09:45 Dose: 25 mg Midodrine (Midodrine) 5 mg PO TIDAC [facility] Stop: 07/14/16 11:01 Last Admin: 07/14/16 11:33 Dose: 5 mg Non-Formulary Medication (Albuterol Sulfate [Proair Respiclick]) 2 puff INH BID [facility] Nystatin 15 Gm 0 gm TOP BID [facility] Last Admin: 07/14/16 10:17 Dose: Not Given Albuterol Sulfate [ (Ventolin]) 0 each INH ASDIRECTED PRN PRN Reason: Shortness of Breath Last Admin: 07/15/16 09:03 Dose: 2 each Albuterol Sulfate [ (Ventolin] Inhaler) 0 each INH BID@0900,1600 [facility] Last Admin: 07/16/16 09:04 Dose: 2 each Senna/Docusate Sodium (Senna Plus) 3 tab PO DAILY [facility] Last Admin: 07/13/16 18:38 Dose: Not Given - Exam General: alert, cooperative, no acute distress, other (Obese) HEENT: Pupils equal, Pupils reactive, EOMI, Mucous membr. moist/pink Neck: supple, trachea midline, no JVD, other (short anc thick) Lungs: Normal respiratory effort, Decreased breath sounds Cardiovascular: Irregular Rhythm Abdomen: bowel sounds present, soft, no tenderness (Female) Exam: Deferred Back Exam: normal inspection, decreased range of motion Extremities: no edema, normal pulses, no tenderness/swelling, no clubbing, no cyanosis, no calf tenderness Peripheral Pulses: 2+: dorsalis pedis (L), dorsalis pedis (R) Skin: dry, intact Neurological: no new focal deficit Psy/Mental Status: alert, normal affect, normal mood - Problem List Review Problem List Initiated/Reviewed/Updated: Yes - My Orders Last 24 Hours: My Active Orders 07/15/16 16:53 Patient's Own Medication [Ptom] 0 each INH ASDIRECTED PRN 07/15/16 17:23 Furosemide [Lasix] 40 mg PO DAILY 07/15/16 23:29 Metoprolol Succinate [Toprol XL] 12.5 mg PO DAILY 07/16/16 10:55 Precautions [COMM] Routine 07/16/16 21:00 Patient's Own Medication [Ptom] 0 each INH BID@0900,2100 07/17/16 05:11 BASIC METABOLIC PANEL,BMP [CHEM] AM CBC WITH AUTO DIFF [HEME] AM MAGNESIUM [CHEM] AM 07/18/16 05:11 MAGNESIUM [CHEM] AM - Plan Plan:: Assessment/Plan: Acute: New Onset of C. Diff Infection - Already started on oral flagyl - Add probiotic Generalized Weakness - 2/2 Multi-factorial - Continue PT/OT Cutaneous Candidiasis - Risk factors: DM2 and Obesity - Continue oral anti-fungal medications Self Neglect/Functional Decline - Lives in [facility], independent - Has Alzheimer's Dementia - per nurse she has fungal infection on groin area and skin folds - It appears she has not taken a shower in days-weeks High Risk Poly-pharmacy - She got more plenty of home medications Resolved: Status Post Fall - Likely mechanical - Carries hx/o Advanced OA/DJD - Continue PT/OT S/p Intractable Pain Status Post Fall - All imaging studies negative for acute fracture - Pain Management and PT/OT S/p AMS - She has underlying Alzheimer's Disease - Seems to be at baseline - High risk poly-pharmacy - UA shows no UTI - She is now at baseline S/p Relatively Hypotension - She is asymptomatic - Likely has autonomic Dysfunction - Continue Midodrine TID and Compression stockings - Continue Digoxin for rate control - Will start BB with lower dose BID S/p Right Cheryle-orbital Ecchymosis and Small Forehead Laceration - Improved Chronic: Impaired Elbert and Vision Chronic Atrial Fibrillation, on Eliquis CAD HF with reduced EF 30-25% 06/06/16 Asthma/COPD Constipation CKD OA/DJD Osteopenia Gout Advanced Cardiac Valvular Dysfunction DM2 Alzheimer's Disease Thrombocytopenia BCC Actinic Keratosis Plan: Continue current treatment Routine AM Labs Fall and Precautions SW/CM for d/c planning Recommend SNF/NH Code status: 1 Additional orders as above LOS anticipate > 96 hrs pending improvement of vitals and also for SNF/NH placement
[2016-07-16] MEDS: Metoprolol Succinate 25 MG Tab.ER PO SCH ×2 (15:37→21:24)
[2016-07-16] MEDS: Gabapentin 600 MG Tab PO SCH (17:58)
[2016-07-16] MEDS: ALBUTEROL INHALER INH SCH (20:53)
[2016-07-16] MEDS: LATANOPROST EYEBOTH SCH (21:19)
[2016-07-17] MEDS: metroNIDAZOLE 500 MG Tab PO SCH ×3 (02:04→17:08)
[2016-07-17] MEDS: Insulin Aspart 100 Units/ML 3 ML Pen SUBCUT SCH ×4 (06:50→22:00)
[2016-07-17] MEDS: Tiotropium Br/Olodaterol Hcl [Stiolto Respimat] INH SCH (08:45)
[2016-07-17] MEDS: ALBUTEROL INHALER INH SCH ×2 (08:45→21:05)
--- NOTE | 2016-07-17 09:11 | PCM.PN ---
- General Info Date of Service: 07/17/16 Admission Dx/Problem (Free Text): Admission Diagnosis/Problem Admission Diagnosis/Problem Fall Subjective Update: Follow Up Functional Status: Reports: pain controlled, tolerating diet, ambulating, urinating. Denies: new symptoms - Review of Systems General: Denies: Fever, Weakness, Fatigue, Malaise, Chills HEENT: Reports: no symptoms Pulmonary: Denies: shortness of breath Cardiovascular: Denies: Chest Pain, Palpitations, Dyspnea on Exertion, Edema Gastrointestinal: Denies: Abdominal pain, Nausea, Vomiting Genitourinary: Reports: no symptoms Musculoskeletal: Reports: no symptoms Skin: Reports: no symptoms Neurological: Denies: Confusion, Dizziness, Seizure Psychiatric: Denies: depression, cravings Systems Review Comment:: No overnight or acute issues. She remains relatively well. She has no diarrhea or new complaints. - Patient Data Vitals - most recent: Last Vital Signs Temp 36.7 C 07/17/16 04:40 Pulse 88 07/17/16 04:40 Resp 18 07/17/16 04:40 BP 118/70 07/17/16 04:40 Pulse Ox 95 07/17/16 08:46 Weight - most recent: 80.694 kg I&O - last 24 hours: Intake & Output 07/16/16 07/17/16 07/17/16 22:59 06:59 14:59 Intake Total 320 200 Output Total 550 750 Balance -230 -550 Lab Results last 24 hrs: Laboratory Results - last 24 hr 07/16/16 07/16/16 07/16/16 Range/Units 11:13 16:46 21:17 Sodium (136-145) mEq/L Potassium (3.5-5.1) mEq/L Chloride (98-107) mEq/L Carbon Dioxide (21-32) mEq/L Anion Gap (5-15) BUN (7-18) mg/dL Creatinine (0.55-1.02) mg/dL Est Cr Clr Drug Dosing mL/min Estimated GFR (MDRD) (>60) mL/min BUN/Creatinine Ratio (14-18) Glucose (83-115) mg/dL POC Glucose 159 H 128 H 145 H (83-110) mg/dL Calcium (8.5-10.1) mg/dL Magnesium (1.8-2.4) mg/dl 07/17/16 07/17/16 Range/Units 06:04 06:33 Sodium 139 (136-145) mEq/L Potassium 4.4 (3.5-5.1) mEq/L Chloride 105 (98-107) mEq/L Carbon Dioxide 24 (21-32) mEq/L Anion Gap 14.4 (5-15) BUN 57 H (7-18) mg/dL Creatinine 1.5 H (0.55-1.02) mg/dL Est Cr Clr Drug Dosing 20.32 mL/min Estimated GFR (MDRD) 33 (>60) mL/min BUN/Creatinine Ratio 38.0 H (14-18) Glucose 113 (83-115) mg/dL POC Glucose 111 H (83-110) mg/dL Calcium 9.1 (8.5-10.1) mg/dL Magnesium 2.1 (1.8-2.4) mg/dl Justin Results last 24 hrs: Microbiology 07/16/16 14:20 Influenza Type A Antigen Screen - Final Nasopharyngeal Swab - Nare, Unspecified NEGATIVE INFLUENZA A VIRUS AG Influenza Type B Antigen Screen - Final NEGATIVE INFLUENZA B VIRUS AG Med Orders - Current: Current Medications Acetaminophen (Tylenol) 650 mg PO Q4H PRN PRN Reason: Pain (Mild 1-3)/fever Acetaminophen (Tylenol) 650 mg PO BID [facility] Last Admin: 07/16/16 21:20 Dose: 650 mg Acetaminophen/Hydrocodone Bitart (Bono 325-5 Mg) 1 tab PO Q12HR PRN PRN Reason: Pain Last Admin: 07/13/16 11:26 Dose: 1 tab Albuterol/Ipratropium (Duoneb 3.0-0.5 Mg/3 Ml) 3 ml NEB Q4H PRN PRN Reason: Shortness Of Breath/wheezing Allopurinol (Zyloprim) 200 mg PO DAILY [facility] Last Admin: 07/16/16 10:07 Dose: 200 mg Apixaban (Eliquis) 2.5 mg PO BID [facility] Last Admin: 07/16/16 21:18 Dose: 2.5 mg Bisacodyl (Dulcolax) 5 mg PO DAILY PRN PRN Reason: Constipation Cholecalciferol (Vitamin D3) 1,000 units PO DAILY [facility] Last Admin: 07/16/16 10:10 Dose: 1,000 units Dextrose/Water (Dextrose 50% In Water) 50 ml IVPUSH ASDIRECTED PRN PRN Reason: Hypoglycemia Digoxin (Lanoxin) 62.5 mcg PO DAILY [facility] Last Admin: 07/16/16 10:08 Dose: 62.5 mcg Donepezil HCl (Aricept) 10 mg PO DAILY [facility] Last Admin: 07/16/16 10:10 Dose: 10 mg Ferrous Sulfate (Ferrous Sulfate) 325 mg PO MoThSa [facility] Last Admin: 07/15/16 12:41 Dose: 325 mg Flunisolide (Nasalide Nasal Elma) 0 ml NASBOTH DAILY PRN PRN Reason: STUFFY NOSE Furosemide (Lasix) 40 mg PO DAILY [facility] Last Admin: 07/16/16 10:10 Dose: 40 mg Gabapentin (Neurontin) 600 mg PO QPM [facility] Last Admin: 07/16/16 17:58 Dose: 600 mg Hydromorphone HCl (Dilaudid) 0.25 mg IVPUSH Q2H PRN PRN Reason: Pain (severe 7-10) Promethazine HCl 12.5 mg/ (Sodium Chloride) 50.5 mls @ 100 mls/hr IV Q6H PRN PRN Reason: Nausea/Vomiting Insulin Aspart (Novolog) 0 unit SUBCUT QIDACANDBED [facility] PRN Reason: Protocol Last Admin: 07/17/16 06:50 Dose: Not Given Insulin Detemir (Levemir) 25 unit SUBCUT QAM [facility] Last Admin: 07/16/16 09:56 Dose: 25 units Lorazepam (Ativan) 0.5 mg IV Q6H PRN PRN Reason: Anxiety Last Admin: 07/14/16 23:53 Dose: 0.5 mg Magnesium Hydroxide (Milk Of Magnesia) 30 ml PO Q12H PRN PRN Reason: Constipation Metoprolol Succinate (Toprol Xl) 25 mg PO BID [facility] Last Admin: 07/16/16 21:24 Dose: 25 mg Metronidazole (Flagyl) 500 mg PO Q8H [facility] Last Admin: 07/17/16 02:04 Dose: 500 mg Nystatin (Nystatin Crm) 0 gm TOP BID [facility] Last Admin: 07/16/16 21:18 Dose: 1 applic Ondansetron HCl (Zofran) 4 mg IV Q6H PRN PRN Reason: Nausea/Vomiting Trolamine Salicylate (/Aloe Vera 85 Gm) 0 each TOP QID PRN PRN Reason: Pain Fluconazole [ (Diflucan] 200 Mg) 0 each PO Q72H [facility] Last Admin: 07/15/16 16:55 Dose: 1 each Carboxymethylcellulo (se Sodium 1 Drop) 0 each EYEBOTH BID [facility] Last Admin: 07/16/16 21:19 Dose: 1 each Latanoprost [Xalatan 0.005% Ophth Soln] 2.5 Ml 0 each EYEBOTH BEDTIME JAMEL Last Admin: 07/16/16 21:19 Dose: 1 each Sacubitril/Valsartan [Entresto 24 Mg-26 Mg Tablet] 1 Each 0 each PO BID [facility] Last Admin: 07/16/16 21:26 Dose: 1 each Calcium Polycarbophil [Fiber Tabs] 3 Tab 0 each PO DAILY [facility] Last Admin: 07/16/16 09:59 Dose: 3 each Cetirizine 10 Mg 0 each PO DAILY [facility] Last Admin: 07/16/16 10:01 Dose: 1 each Glucosamine/D3/Boswellia Aby [ Osteo Bi-Flex Caplet ] 1 E 0 each PO DAILY [facility] Last Admin: 07/16/16 10:01 Dose: 1 each Linagliptin [ (Tradjenta] 5 Mg) 0 each PO DAILY [facility] Last Admin: 07/16/16 10:03 Dose: 1 each Tiotropium Br/Olodaterol Hcl [ Stiolto Respimat] 0 each INH DAILY [facility] Last Admin: 07/17/16 08:45 Dose: 2 each Vitamin B Complex 1 (Each) 0 each PO DAILY [facility] Last Admin: 07/16/16 10:02 Dose: 1 each Albuterol (Ventolin) (Inhaler) 0 each INH ASDIRECTED PRN PRN Reason: Shortness of Breath Albuterol Inhaler 0 each INH BID@0900,2100 [facility] Last Admin: 07/17/16 08:45 Dose: 2 each Polyethylene Glycol (Miralax) 17 gm PO DAILY PRN PRN Reason: Constipation Saccharomyces Boulardii (Florastor) 250 mg PO BID [facility] Last Admin: 07/16/16 21:18 Dose: 250 mg Senna/Docusate Sodium (Senna Plus) 1 tab PO BID PRN PRN Reason: Constipation Senna/Docusate Sodium (Senna Plus) 3 tab PO DAILY [facility] Last Admin: 07/16/16 10:07 Dose: Not Given Sodium Chloride (Saline Flush) 10 ml FLUSH ASDIRECTED PRN PRN Reason: Keep Vein Open Last Admin: 07/12/16 07:38 Dose: 10 ml Spironolactone (Aldactone) 25 mg PO DAILY [facility] Last Admin: 07/16/16 10:10 Dose: 25 mg Temazepam (Restoril) 7.5 mg PO BEDTIME PRN PRN Reason: Sleep Discontinued Medications Acetaminophen/Hydrocodone Bitart (Bono 325-5 Mg) 1 tab PO Q4H PRN PRN Reason: Pain (moderate 4-6) Last Admin: 07/12/16 14:42 Dose: 1 tab Ceftriaxone Sodium (Rocephin) Confirm Administered Dose 1 gm IV .STK-MED ONE Stop: 07/12/16 10:11 Last Admin: 07/12/16 11:08 Dose: Not Given Enoxaparin Sodium (Lovenox) 30 mg SUBCUT DAILY [facility] Last Admin: 07/12/16 14:34 Dose: Not Given Enoxaparin Sodium (Lovenox) 30 mg SUBCUT DAILY [facility] Furosemide (Lasix) 60 mg PO DAILY [facility] Last Admin: 07/13/16 09:25 Dose: 60 mg Hydromorphone HCl (Dilaudid) 0.5 mg IVPUSH ONETIME ONE Stop: 07/12/16 09:28 Last Admin: 07/12/16 09:39 Dose: 0.5 mg Ceftriaxone Sodium 1 gm/ (Sodium Chloride) 100 mls @ 200 mls/hr IV ONETIME ONE Stop: 07/12/16 09:56 Last Admin: 07/12/16 09:38 Dose: 200 mls/hr Sodium Chloride (Normal Saline) Confirm Administered Dose 100 mls @ as directed .ROUTE .STK-MED ONE Stop: 07/12/16 10:11 Last Admin: 07/12/16 14:33 Dose: Not Given Sodium Chloride (Normal Saline) 500 mls @ 999 mls/hr IV .BOLUS ONE Stop: 07/13/16 17:46 Last Admin: 07/13/16 17:29 Dose: 999 mls/hr Sodium Chloride (Normal Saline) Confirm Administered Dose 1,000 mls @ as directed .ROUTE .STK-MED ONE Stop: 03/14/17 17:26 Last Admin: 07/13/16 20:18 Dose: 250 ml Sodium Chloride (Normal Saline) 250 mls @ 499.445 mls/hr IV .BOLUS ONE Stop: 07/13/16 19:08 Last Admin: 07/13/16 20:19 Dose: Not Given Lidocaine/Epinephrine (Xylocaine 1% With Epinephrine 1:100,000) 20 ml INJECT ONETIME ONE Stop: 07/12/16 07:00 Last Admin: 07/12/16 14:33 Dose: Not Given Metoprolol Succinate (Toprol Xl) 25 mg PO DAILY [facility] Last Admin: 07/16/16 15:37 Dose: Not Given Metoprolol Succinate (Toprol Xl) 12.5 mg PO DAILY [facility] Last Admin: 07/16/16 10:06 Dose: 12.5 mg Midodrine (Midodrine) 5 mg PO TIDAC [facility] Stop: 07/14/16 11:01 Last Admin: 07/14/16 11:33 Dose: 5 mg Midodrine (Midodrine) 2.5 mg PO TIDAC [facility] Last Admin: 07/16/16 17:58 Dose: 2.5 mg Non-Formulary Medication (Albuterol Sulfate [Proair Respiclick]) 2 puff INH BID [facility] Nystatin 15 Gm 0 gm TOP BID [facility] Last Admin: 07/14/16 10:17 Dose: Not Given Albuterol Sulfate [ (Ventolin]) 0 each INH ASDIRECTED PRN PRN Reason: Shortness of Breath Last Admin: 07/15/16 09:03 Dose: 2 each Albuterol Sulfate [ (Ventolin] Inhaler) 0 each INH BID@0900,1600 [facility] Last Admin: 07/16/16 09:04 Dose: 2 each Senna/Docusate Sodium (Senna Plus) 3 tab PO DAILY [facility] Last Admin: 07/13/16 18:38 Dose: Not Given - Exam General: alert, cooperative, no acute distress, other (Obese) HEENT: Pupils equal, Pupils reactive, EOMI, Mucous membr. moist/pink Neck: supple, trachea midline, no JVD, no thyromegaly, other (short and thick) Lungs: Normal respiratory effort, Decreased breath sounds Cardiovascular: Irregular Rhythm, Other (irregular) Abdomen: bowel sounds present, soft, no tenderness, no distension, other (Obese) (Female) Exam: Deferred Back Exam: normal inspection, decreased range of motion Extremities: no edema, normal pulses, no tenderness/swelling, no clubbing, no cyanosis, no calf tenderness Peripheral Pulses: 2+: dorsalis pedis (L), dorsalis pedis (R) Skin: warm, dry, intact Neurological: no new focal deficit Psy/Mental Status: alert, normal affect, normal mood - Problem List Review Problem List Initiated/Reviewed/Updated: Yes - My Orders Last 24 Hours: My Active Orders 07/16/16 10:55 Precautions [COMM] Routine 07/16/16 21:00 Metoprolol Succinate [Toprol XL] 25 mg PO BID Patient's Own Medication [Ptom] 0 each INH BID@0900,2100 07/17/16 06:04 CBC WITH AUTO DIFF [HEME] AM 07/18/16 05:11 MAGNESIUM [CHEM] AM - Plan Plan:: Assessment/Plan: Acute: New Onset of C. Diff Infection - Continue oral flagyl TID and probiotic Generalized Weakness - 2/2 Multi-factorial - Continue PT/OT Cutaneous Candidiasis - Risk factors: DM2 and Obesity - Continue oral anti-fungal medications Self Neglect/Functional Decline - Lives in [facility], independent - Has Alzheimer's Dementia - per nurse she has fungal infection on groin area and skin folds - It appears she has not taken a shower in days-weeks High Risk Poly-pharmacy - She got more plenty of home medications Resolved: Status Post Fall - Likely mechanical - Carries hx/o Advanced OA/DJD - Continue PT/OT S/p Intractable Pain Status Post Fall - All imaging studies negative for acute fracture - Pain Management and PT/OT S/p AMS - She has underlying Alzheimer's Disease - Seems to be at baseline - High risk poly-pharmacy - UA shows no UTI - She is now at baseline S/p Relatively Hypotension - She is asymptomatic - Likely has autonomic Dysfunction - Continue Midodrine TID and Compression stockings - Continue Digoxin for rate control - Will start BB with lower dose BID S/p Right Cheryle-orbital Ecchymosis and Small Forehead Laceration - Improved Chronic: Impaired [place] and Vision Chronic Atrial Fibrillation, on Eliquis CAD HF with reduced EF 30-25% 06/06/16 Asthma/COPD Constipation CKD OA/DJD Osteopenia Gout Advanced Cardiac Valvular Dysfunction DM2 Alzheimer's Disease Thrombocytopenia BCC Actinic Keratosis Plan: Her vitals have improved Continue current treatment Routine AM Labs Fall and Precautions SW/CM for d/c planning Recommend SNF/NH Code status: 1 Additional orders as above Reviewed her homed meds: She is on entresto (ACEI/ARB), metoprolol 25 mg po BID , low dose digoxin plus lasix 60 mg daily along with aldactone 25 mg po daily. This might be too much for her. Will d/c her aldactone. Currently she is on 40 of lasix doing just fine. LOS anticipate > 96 hrs pending SNF/NH placement
[2016-07-17] MEDS: Insulin Detemir 100 Units/ML 3 ML Pen SUBCUT SCH (10:18)
[2016-07-17] MEDS: Apixaban 5 MG Tab PO SCH ×2 (10:21→20:42)
[2016-07-17] MEDS: Metoprolol Succinate 25 MG Tab.ER PO SCH ×2 (10:22→20:41)
[2016-07-17] MEDS: Spironolactone 25 MG Tab PO SCH (10:22)
[2016-07-17] MEDS: Digoxin 125 MCG Tab PO SCH (10:23)
[2016-07-17] MEDS: Donepezil 10 MG Tab PO SCH (10:23)
[2016-07-17] MEDS: Furosemide 20 MG Tab PO SCH (10:23)
[2016-07-17] MEDS: Acetaminophen 325 MG Tab PO SCH ×2 (10:24→20:44)
[2016-07-17] MEDS: Allopurinol 100 MG Tab PO SCH (10:24)
[2016-07-17] MEDS: CALCIUM POLYCARBOPHIL PO SCH (10:25)
[2016-07-17] MEDS: Saccharomyces Boulardii (Probiotic) 250 MG Cap PO SCH ×2 (10:25→20:43)
[2016-07-17] MEDS: LINAGLIPTIN 5 MG PO SCH (10:27)
[2016-07-17] MEDS: SACUBITRIL PO SCH ×2 (10:27→20:44)
[2016-07-17] MEDS: GLUCOSAMINE PO SCH (10:27)
[2016-07-17] MEDS: VALSARTAN PO SCH ×2 (10:27→20:44)
[2016-07-17] MEDS: [UNRECOGNIZED DRUG - OTHER] PO SCH (10:27)
[2016-07-17] MEDS: D3 PO SCH (10:27)
[2016-07-17] MEDS: Vitamin B Complex 1 EACH PO SCH (10:28)
[2016-07-17] MEDS: Cholecalciferol (Vitamin D3) 1,000 Unit Tab PO SCH (10:29)
[2016-07-17] MEDS: CARBOXYMETHYLCELLULOSE SODIUM EYEBOTH SCH ×2 (10:53→20:43)
[2016-07-17] MEDS: Ferrous Sulfate 325 MG Tab PO SCH (12:59)
[2016-07-17] MEDS: Nystatin Crm 30 GM Tube TOP SCH ×2 (12:59→20:43)
[2016-07-17] MEDS: Gabapentin 600 MG Tab PO SCH (17:08)
[2016-07-17] MEDS: LATANOPROST EYEBOTH SCH (20:43)
[2016-07-18] MEDS: metroNIDAZOLE 500 MG Tab PO SCH ×3 (01:44→17:20)
[2016-07-18] MEDS: Insulin Aspart 100 Units/ML 3 ML Pen SUBCUT SCH ×4 (06:41→21:07)
[2016-07-18] MEDS: Tiotropium Br/Olodaterol Hcl [Stiolto Respimat] INH SCH (08:26)
[2016-07-18] MEDS: ALBUTEROL INHALER INH SCH ×2 (08:26→21:11)
[2016-07-18] MEDS: Insulin Detemir 100 Units/ML 3 ML Pen SUBCUT SCH (08:35)
[2016-07-18] MEDS: Acetaminophen 325 MG Tab PO SCH ×2 (08:39→21:02)
[2016-07-18] MEDS: Saccharomyces Boulardii (Probiotic) 250 MG Cap PO SCH ×2 (08:40→20:59)
[2016-07-18] MEDS: Allopurinol 100 MG Tab PO SCH (08:41)
[2016-07-18] MEDS: Donepezil 10 MG Tab PO SCH (08:41)
[2016-07-18] MEDS: Apixaban 5 MG Tab PO SCH ×2 (08:41→21:00)
[2016-07-18] MEDS: Cholecalciferol (Vitamin D3) 1,000 Unit Tab PO SCH (08:42)
[2016-07-18] MEDS: CALCIUM POLYCARBOPHIL PO SCH (08:42)
[2016-07-18] MEDS: Nystatin Crm 30 GM Tube TOP SCH ×2 (08:43→21:01)
[2016-07-18] MEDS: [UNRECOGNIZED DRUG - OTHER] PO SCH (08:44)
[2016-07-18] MEDS: CARBOXYMETHYLCELLULOSE SODIUM EYEBOTH SCH ×2 (08:44→21:01)
[2016-07-18] MEDS: GLUCOSAMINE PO SCH (08:44)
[2016-07-18] MEDS: D3 PO SCH (08:44)
[2016-07-18] MEDS: LINAGLIPTIN 5 MG PO SCH (08:45)
[2016-07-18] MEDS: VALSARTAN PO SCH ×2 (08:46→21:04)
[2016-07-18] MEDS: SACUBITRIL PO SCH ×2 (08:46→21:04)
[2016-07-18] MEDS: Vitamin B Complex 1 EACH PO SCH (08:46)
[2016-07-18] MEDS ORDERED: Spironolactone 25 MG Tab PO SCH (09:00)
--- NOTE | 2016-07-18 10:09 | PCM.PN ---
- General Info Date of Service: 07/18/16 Admission Dx/Problem (Free Text): Admission Diagnosis/Problem Admission Diagnosis/Problem Fall Subjective Update: Follow Up Functional Status: Reports: pain controlled, tolerating diet, ambulating, urinating. Denies: new symptoms - Review of Systems General: Denies: Fever, Weakness, Fatigue, Malaise, Chills HEENT: Reports: no symptoms Pulmonary: Denies: shortness of breath Cardiovascular: Denies: Chest Pain, Palpitations, Dyspnea on Exertion, Lightheadedness Gastrointestinal: Denies: Abdominal pain, Nausea, Vomiting Genitourinary: Reports: no symptoms Musculoskeletal: Reports: no symptoms Skin: Reports: no symptoms Neurological: Reports: Weakness, Gait Disturbance. Denies: Confusion Psychiatric: Denies: depression, anxiety, hallucinations Systems Review Comment:: No overnight issues. However she bottomed out again with her previous. She is now off midodrine. She has no new complaints. - Patient Data Vitals - most recent: Last Vital Signs Temp 36.1 C 07/18/16 07:55 Pulse 87 07/18/16 07:55 Resp 18 07/18/16 04:25 BP 93/49 L 07/18/16 08:31 Pulse Ox 95 07/18/16 08:27 Weight - most recent: 79.923 kg I&O - last 24 hours: Intake & Output 07/17/16 07/18/16 07/18/16 22:59 06:59 14:59 Intake Total 360 200 Output Total 250 1050 Balance 110 -850 Lab Results last 24 hrs: Laboratory Results - last 24 hr 07/17/16 07/17/16 07/17/16 Range/Units 06:04 12:13 17:07 WBC 5.39 (3.98-10.04) K/mm3 RBC 4.71 (3.98-5.22) M/mm3 Hgb 14.9 (11.2-15.7) gm/L Hct 45.9 H (34.1-44.9) % MCV 97.5 H (79.4-94.8) fl MCH 31.6 (25.6-32.2) pg MCHC 32.5 (32.2-35.5) g/dl RDW Std Deviation 54.8 H (36.4-46.3) fL Plt Count 132 L (182-369) K/mm3 MPV 11.3 (9.4-12.3) fl Neut % (Auto) 48.4 (34.0-71.1) % Lymph % (Auto) 36.0 (19.3-51.7) % [place] % (Auto) 7.6 (4.7-12.5) % Eos % (Auto) 6.5 H (0.7-5.8) Baso % (Auto) 1.1 (0.1-1.2) % Neut # 2.61 (1.56-6.13) K/mm3 Lymph # 1.94 (1.18-3.74) K/mm3 [place] # 0.41 H (0.24-0.36) K/mm3 Eos # 0.35 (0.04-0.36) K/mm3 Baso # 0.06 (0.01-0.08) K/mm3 Manual Slide Review Normal smear POC Glucose 164 H 105 (83-110) mg/dL Magnesium (1.8-2.4) mg/dl 07/17/16 07/18/16 07/18/16 Range/Units 20:39 06:03 06:33 WBC (3.98-10.04) K/mm3 RBC (3.98-5.22) M/mm3 Hgb (11.2-15.7) gm/L Hct (34.1-44.9) % MCV (79.4-94.8) fl MCH (25.6-32.2) pg MCHC (32.2-35.5) g/dl RDW Std Deviation (36.4-46.3) fL Plt Count (182-369) K/mm3 MPV (9.4-12.3) fl Neut % (Auto) (34.0-71.1) % Lymph % (Auto) (19.3-51.7) % [place] % (Auto) (4.7-12.5) % Eos % (Auto) (0.7-5.8) Baso % (Auto) (0.1-1.2) % Neut # (1.56-6.13) K/mm3 Lymph # (1.18-3.74) K/mm3 [place] # (0.24-0.36) K/mm3 Eos # (0.04-0.36) K/mm3 Baso # (0.01-0.08) K/mm3 Manual Slide Review POC Glucose 164 H 82 L (83-110) mg/dL Magnesium 2.2 (1.8-2.4) mg/dl Med Orders - Current: Current Medications Acetaminophen (Tylenol) 650 mg PO Q4H PRN PRN Reason: Pain (Mild 1-3)/fever Acetaminophen (Tylenol) 650 mg PO BID [facility] Last Admin: 07/18/16 08:39 Dose: 650 mg Acetaminophen/Hydrocodone Bitart ([place] 325-5 Mg) 1 tab PO Q12HR PRN PRN Reason: Pain Last Admin: 07/13/16 11:26 Dose: 1 tab Albuterol/Ipratropium (Duoneb 3.0-0.5 Mg/3 Ml) 3 ml NEB Q4H PRN PRN Reason: Shortness Of Breath/wheezing Allopurinol (Zyloprim) 200 mg PO DAILY [facility] Last Admin: 07/18/16 08:41 Dose: 200 mg Apixaban (Eliquis) 2.5 mg PO BID [facility] Last Admin: 07/18/16 08:41 Dose: 2.5 mg Bisacodyl (Dulcolax) 5 mg PO DAILY PRN PRN Reason: Constipation Cholecalciferol (Vitamin D3) 1,000 units PO DAILY [facility] Last Admin: 07/18/16 08:42 Dose: 1,000 units Dextrose/Water (Dextrose 50% In Water) 50 ml IVPUSH ASDIRECTED PRN PRN Reason: Hypoglycemia Digoxin (Lanoxin) 62.5 mcg PO DAILY [facility] Last Admin: 07/17/16 10:23 Dose: 62.5 mcg Donepezil HCl (Aricept) 10 mg PO DAILY [facility] Last Admin: 07/18/16 08:41 Dose: 10 mg Ferrous Sulfate (Ferrous Sulfate) 325 mg PO MoThSa [facility] Last Admin: 07/17/16 12:59 Dose: 325 mg Flunisolide (Nasalide Nasal [place]) 0 ml NASBOTH DAILY PRN PRN Reason: STUFFY NOSE Furosemide (Lasix) 40 mg PO DAILY [facility] Last Admin: 07/17/16 10:23 Dose: 40 mg Gabapentin (Neurontin) 600 mg PO QPM [facility] Last Admin: 07/17/16 17:08 Dose: 600 mg Hydromorphone HCl (Dilaudid) 0.25 mg IVPUSH Q2H PRN PRN Reason: Pain (severe 7-10) Promethazine HCl 12.5 mg/ (Sodium Chloride) 50.5 mls @ 100 mls/hr IV Q6H PRN PRN Reason: Nausea/Vomiting Insulin Aspart (Novolog) 0 unit SUBCUT QIDACANDBED [facility] PRN Reason: Protocol Last Admin: 07/18/16 06:41 Dose: Not Given Insulin Detemir (Levemir) 25 unit SUBCUT QAM [facility] Last Admin: 07/18/16 08:35 Dose: 25 units Lorazepam (Ativan) 0.5 mg IV Q6H PRN PRN Reason: Anxiety Last Admin: 07/14/16 23:53 Dose: 0.5 mg Magnesium Hydroxide (Milk Of Magnesia) 30 ml PO Q12H PRN PRN Reason: Constipation Metoprolol Succinate (Toprol Xl) 12.5 mg PO BID [facility] Last Admin: 07/17/16 20:41 Dose: 12.5 mg Metronidazole (Flagyl) 500 mg PO Q8H [facility] Last Admin: 07/18/16 08:42 Dose: 500 mg Nystatin (Nystatin Crm) 0 gm TOP BID [facility] Last Admin: 07/18/16 08:43 Dose: 1 applic Ondansetron HCl (Zofran) 4 mg IV Q6H PRN PRN Reason: Nausea/Vomiting Trolamine Salicylate (/Aloe Vera 85 Gm) 0 each TOP QID PRN PRN Reason: Pain Fluconazole [ (Diflucan] 200 Mg) 0 each PO Q72H [facility] Last Admin: 07/15/16 16:55 Dose: 1 each Carboxymethylcellulo (se Sodium 1 Drop) 0 each EYEBOTH BID [facility] Last Admin: 07/18/16 08:44 Dose: 1 each Latanoprost [Xalatan 0.005% Ophth Soln] 2.5 Ml 0 each EYEBOTH BEDTIME [facility] Last Admin: 07/17/16 20:43 Dose: 1 each Sacubitril/Valsartan [Entresto 24 Mg-26 Mg Tablet] 1 Each 0 each PO BID [facility] Last Admin: 07/18/16 08:46 Dose: 1 each Calcium Polycarbophil [Fiber Tabs] 3 Tab 0 each PO DAILY [facility] Last Admin: 07/18/16 08:42 Dose: Not Given Cetirizine 10 Mg 0 each PO DAILY [facility] Last Admin: 07/18/16 08:44 Dose: 1 each Glucosamine/D3/Boswellia Aby [ Osteo Bi-Flex Caplet ] 1 E 0 each PO DAILY [facility] Last Admin: 07/18/16 08:44 Dose: 1 each Linagliptin [ (Tradjenta] 5 Mg) 0 each PO DAILY [facility] Last Admin: 07/18/16 08:45 Dose: 1 each Tiotropium Br/Olodaterol Hcl [ Stiolto Respimat] 0 each INH DAILY [facility] Last Admin: 07/18/16 08:26 Dose: 2 each Vitamin B Complex 1 (Each) 0 each PO DAILY [facility] Last Admin: 07/18/16 08:46 Dose: 1 each Albuterol (Ventolin) (Inhaler) 0 each INH ASDIRECTED PRN PRN Reason: Shortness of Breath Albuterol Inhaler 0 each INH BID@0900,2100 [facility] Last Admin: 07/18/16 08:26 Dose: 2 each Polyethylene Glycol (Miralax) 17 gm PO DAILY PRN PRN Reason: Constipation Saccharomyces Boulardii (Florastor) 250 mg PO BID [facility] Last Admin: 07/18/16 08:40 Dose: 250 mg Senna/Docusate Sodium (Senna Plus) 1 tab PO BID PRN PRN Reason: Constipation Senna/Docusate Sodium (Senna Plus) 3 tab PO DAILY [facility] Last Admin: 07/18/16 08:40 Dose: 3 tab Sodium Chloride (Saline Flush) 10 ml FLUSH ASDIRECTED PRN PRN Reason: Keep Vein Open Last Admin: 07/12/16 07:38 Dose: 10 ml Spironolactone (Aldactone) 12.5 mg PO DAILY [facility] Temazepam (Restoril) 7.5 mg PO BEDTIME PRN PRN Reason: Sleep Discontinued Medications Acetaminophen/Hydrocodone Bitart ([place] 325-5 Mg) 1 tab PO Q4H PRN PRN Reason: Pain (moderate 4-6) Last Admin: 07/12/16 14:42 Dose: 1 tab Ceftriaxone Sodium (Rocephin) Confirm Administered Dose 1 gm IV .STK-MED ONE Stop: 07/12/16 10:11 Last Admin: 07/12/16 11:08 Dose: Not Given Enoxaparin Sodium (Lovenox) 30 mg SUBCUT DAILY [facility] Last Admin: 07/12/16 14:34 Dose: Not Given Enoxaparin Sodium (Lovenox) 30 mg SUBCUT DAILY [facility] Furosemide (Lasix) 60 mg PO DAILY [facility] Last Admin: 07/13/16 09:25 Dose: 60 mg Hydromorphone HCl (Dilaudid) 0.5 mg IVPUSH ONETIME ONE Stop: 07/12/16 09:28 Last Admin: 07/12/16 09:39 Dose: 0.5 mg Ceftriaxone Sodium 1 gm/ (Sodium Chloride) 100 mls @ 200 mls/hr IV ONETIME ONE Stop: 07/12/16 09:56 Last Admin: 07/12/16 09:38 Dose: 200 mls/hr Sodium Chloride (Normal Saline) Confirm Administered Dose 100 mls @ as directed .ROUTE .STK-MED ONE Stop: 07/12/16 10:11 Last Admin: 07/12/16 14:33 Dose: Not Given Sodium Chloride (Normal Saline) 500 mls @ 999 mls/hr IV .BOLUS ONE Stop: 07/13/16 17:46 Last Admin: 07/13/16 17:29 Dose: 999 mls/hr Sodium Chloride (Normal Saline) Confirm Administered Dose 1,000 mls @ as directed .ROUTE .STK-MED ONE Stop: 07/13/16 17:26 Last Admin: 07/13/16 20:18 Dose: 250 ml Sodium Chloride (Normal Saline) 250 mls @ 499.445 mls/hr IV .BOLUS ONE Stop: 07/13/16 19:08 Last Admin: 07/13/16 20:19 Dose: Not Given Lidocaine/Epinephrine (Xylocaine 1% With Epinephrine 1:100,000) 20 ml INJECT ONETIME ONE Stop: 07/12/16 07:00 Last Admin: 07/12/16 14:33 Dose: Not Given Metoprolol Succinate (Toprol Xl) 25 mg PO DAILY [facility] Last Admin: 07/16/16 15:37 Dose: Not Given Metoprolol Succinate (Toprol Xl) 12.5 mg PO DAILY [facility] Last Admin: 07/16/16 10:06 Dose: 12.5 mg Metoprolol Succinate (Toprol Xl) 25 mg PO BID [facility] Last Admin: 07/17/16 10:22 Dose: 25 mg Midodrine (Midodrine) 5 mg PO TIDAC [facility] Stop: 07/14/16 11:01 Last Admin: 07/14/16 11:33 Dose: 5 mg Midodrine (Midodrine) 2.5 mg PO TIDAC [facility] Last Admin: 07/16/16 17:58 Dose: 2.5 mg Non-Formulary Medication (Albuterol Sulfate [Proair Respiclick]) 2 puff INH BID [facility] Nystatin 15 Gm 0 gm TOP BID [facility] Last Admin: 07/14/16 10:17 Dose: Not Given Albuterol Sulfate [ (Ventolin]) 0 each INH ASDIRECTED PRN PRN Reason: Shortness of Breath Last Admin: 07/15/16 09:03 Dose: 2 each Albuterol Sulfate [ (Ventolin] Inhaler) 0 each INH BID@0900,1600 [facility] Last Admin: 07/16/16 09:04 Dose: 2 each Senna/Docusate Sodium (Senna Plus) 3 tab PO DAILY [facility] Last Admin: 07/13/16 18:38 Dose: Not Given Spironolactone (Aldactone) 25 mg PO DAILY [facility] Last Admin: 07/17/16 10:22 Dose: 25 mg - Exam General: alert, cooperative, no acute distress, other (Obese) HEENT: Pupils equal, Pupils reactive, EOMI, Mucous membr. moist/pink Neck: supple, trachea midline, no JVD, no thyromegaly, other (short and thick) Lungs: Normal respiratory effort, Decreased breath sounds Cardiovascular: Irregular Rhythm, Other (irregular rate) Abdomen: bowel sounds present, soft, no tenderness, no distension (Female) Exam: Deferred Back Exam: normal inspection, decreased range of motion Extremities: no edema, normal pulses, no tenderness/swelling, no clubbing, no cyanosis, no calf tenderness Peripheral Pulses: 2+: dorsalis pedis (L), dorsalis pedis (R) Skin: warm, dry, intact Neurological: no new focal deficit Psy/Mental Status: alert, normal affect, normal mood - Problem List Review Problem List Initiated/Reviewed/Updated: Yes - My Orders Last 24 Hours: My Active Orders 07/17/16 21:00 Metoprolol Succinate [Toprol XL] 12.5 mg PO BID 07/18/16 09:00 Spironolactone [Aldactone] 12.5 mg PO DAILY - Plan Plan:: Assessment/Plan: Acute: New Onset of C. Diff Infection - Continue oral flagyl TID and probiotic Generalized Weakness - 2/2 Multi-factorial - Continue PT/OT Cutaneous Candidiasis - Risk factors: DM2 and Obesity - Continue oral anti-fungal medications Self Neglect/Functional Decline - Lives in [facility], independent - Has Alzheimer's Dementia - per nurse she has fungal infection on groin area and skin folds - It appears she has not taken a shower in days-weeks High Risk Poly-pharmacy - She got more plenty of home medications Resolved: Status Post Fall - Likely mechanical - Carries hx/o Advanced OA/DJD - Continue PT/OT S/p Intractable Pain Status Post Fall - All imaging studies negative for acute fracture - Pain Management and PT/OT S/p AMS - She has underlying Alzheimer's Disease - Seems to be at baseline - High risk poly-pharmacy - UA shows no UTI - She is now at baseline S/p Relatively Hypotension - She is asymptomatic - Likely has autonomic Dysfunction - Continue Midodrine TID and Compression stockings - Continue Digoxin for rate control - Will start BB with lower dose BID S/p Right Cheryle-orbital Ecchymosis and Small Forehead Laceration - Improved Chronic: Impaired [place] and Vision Chronic Atrial Fibrillation, on Eliquis CAD HF with reduced EF 30-25% 06/06/16 Asthma/COPD Constipation CKD OA/DJD Osteopenia Gout Advanced Cardiac Valvular Dysfunction DM2 Alzheimer's Disease Thrombocytopenia BCC Actinic Keratosis Plan: Her vitals have improved Continue current treatment Routine AM Labs Fall and Precautions SW/CM for d/c planning Recommend SNF/NH Code status: 1 Additional orders as above Reviewed her homed meds: She is on entresto (ACEI/ARB), metoprolol 25 mg po BID , low dose digoxin plus lasix 60 mg daily along with aldactone 25 mg po daily. This might be too much for her. Currently she is on 40 of lasix doing just fine. Cut down metoprolol to 12.5 mg po BID. Re-start Midrodrine 2.5 mg po BID- TID. LOS anticipate > 96 hrs pending SNF/NH placement
[2016-07-18] MEDS: Furosemide 20 MG Tab PO SCH (10:46)
[2016-07-18] MEDS: Digoxin 125 MCG Tab PO SCH (10:47)
[2016-07-18] MEDS: Metoprolol Succinate 25 MG Tab.ER PO SCH ×2 (10:47→20:59)
[2016-07-18] MEDS: Midodrine 5 MG Tab PO SCH ×2 (10:49→17:21)
[2016-07-18] MEDS: FLUCONAZOLE 200 MG PO SCH (15:05)
[2016-07-18] MEDS: Gabapentin 600 MG Tab PO SCH (17:20)
[2016-07-18] MEDS: LATANOPROST EYEBOTH SCH (21:01)
[2016-07-19] MEDS: metroNIDAZOLE 500 MG Tab PO SCH ×3 (02:11→17:13)
[2016-07-19] MEDS: Insulin Aspart 100 Units/ML 3 ML Pen SUBCUT SCH ×4 (06:54→22:35)
[2016-07-19] MEDS: Saccharomyces Boulardii (Probiotic) 250 MG Cap PO SCH ×2 (08:17→22:32)
[2016-07-19] MEDS: Midodrine 5 MG Tab PO SCH ×2 (08:17→22:33)
[2016-07-19] MEDS: Cholecalciferol (Vitamin D3) 1,000 Unit Tab PO SCH (08:18)
[2016-07-19] MEDS: Allopurinol 100 MG Tab PO SCH (08:19)
[2016-07-19] MEDS: Metoprolol Succinate 25 MG Tab.ER PO SCH ×2 (08:19→22:37)
[2016-07-19] MEDS: Donepezil 10 MG Tab PO SCH (08:20)
[2016-07-19] MEDS: Apixaban 5 MG Tab PO SCH ×2 (08:20→22:31)
[2016-07-19] MEDS: Digoxin 125 MCG Tab PO SCH (08:20)
[2016-07-19] MEDS: Acetaminophen 325 MG Tab PO SCH ×2 (08:22→22:32)
[2016-07-19] MEDS: Insulin Detemir 100 Units/ML 3 ML Pen SUBCUT SCH (08:26)
[2016-07-19] MEDS: Nystatin Crm 30 GM Tube TOP SCH ×2 (08:27→22:33)
[2016-07-19] MEDS: Furosemide 20 MG Tab PO SCH (08:27)
[2016-07-19] MEDS: CALCIUM POLYCARBOPHIL PO SCH (08:31)
[2016-07-19] MEDS: CARBOXYMETHYLCELLULOSE SODIUM EYEBOTH SCH ×2 (08:31→22:33)
[2016-07-19] MEDS: LINAGLIPTIN 5 MG PO SCH (08:32)
[2016-07-19] MEDS: [UNRECOGNIZED DRUG - OTHER] PO SCH (08:32)
[2016-07-19] MEDS: GLUCOSAMINE PO SCH (08:32)
[2016-07-19] MEDS: D3 PO SCH (08:32)
[2016-07-19] MEDS: Vitamin B Complex 1 EACH PO SCH (08:33)
[2016-07-19] MEDS: VALSARTAN PO SCH ×2 (08:33→22:34)
[2016-07-19] MEDS: SACUBITRIL PO SCH ×2 (08:33→22:34)
[2016-07-19] MEDS: ALBUTEROL INHALER INH SCH ×2 (08:36→20:55)
[2016-07-19] MEDS: Tiotropium Br/Olodaterol Hcl [Stiolto Respimat] INH SCH (08:37)
--- NOTE | 2016-07-19 10:28 | PCM.DCSUM1 ---
Discharge Summary - Hospital Course Free Text/Narrative:: This is an 85 yo elderly white female with significant cardiac and lung disease who comes for evaluation status post fall. Patient is independent and lives at [facility]. On her way to the bathroom, she lost her balance and fell and possibly hitting the toilet with her face on her way down. She has suffered a josue- orbital ecchymosis and a laceration of the right eye brow. She also complains of multiple pain site after the fall. She denies any prodromal symptoms. She reports no LOC or tongue bites. She denies having loss of bladder or bowel control. Patient is known to the hospitalist team from previous admission. All her imaging studies done in ED show not acute abnormal findings. However she was referred for pain management and continued observation post fall. She is full code. Over course of hospital stay, PT/OT was consulted and worked with her on strength and balance. It is recommends she be discharged to SNF for further rehab. She was frequently hypotensive during her stay. Medications were adjusted , metoprolol dose decreased, lasix dose decreased and she was started on midodrine for hypotension 2.5mg BID. She was found to have c-diff + stool study and was started on flagyl PO, which she will cont x 10 day course. Diarrhea has subsided, no abdominal pain and is afebrile, VSS. She has done well during her stay otherwise and will be discharged to [facility] for further rehab stay. She will follow up with PCP, Dr. Gama within 5-7 days for recheck with BMP at that time to follow electrolytes and CKD. - Discharge Data Discharge Date: 07/19/16 (07/12/16) Discharge Disposition: DC/Tfer to [facility] Condition: Good - Discharge Diagnosis/Problem(s) (1) Hypotension SNOMED Code(s): 20586066 ICD Code: I95.9 - HYPOTENSION, UNSPECIFIED Status: Acute Priority: High Current Visit: Yes Qualifiers: Hypotension type: other hypotension type Qualified Code(s): I95.89 - Other hypotension (2) Chronic kidney disease SNOMED Code(s): 224585189 ICD Code: N18.9 - CHRONIC KIDNEY DISEASE, UNSPECIFIED Status: Chronic Priority: Medium Current Visit: Yes Qualifiers: Chronic kidney disease stage: unspecified stage Qualified Code(s): N18.9 - Chronic kidney disease, unspecified (3) Generalized weakness SNOMED Code(s): 48866841 ICD Code: R53.1 - WEAKNESS Status: Chronic Priority: High Current Visit : Yes (4) Clostridium difficile diarrhea SNOMED Code(s): 660738025, 941422589 ICD Code: A04.7 - ENTEROCOLITIS DUE TO CLOSTRIDIUM DIFFICILE Status: Acute Priority: High Current Visit: Yes (5) Recurrent falls SNOMED Code(s): 419766545 ICD Code: R29.6 - REPEATED FALLS Status: Chronic Priority: High Current Visit: Yes - Patient Summary/Data Operative Procedure(s) Performed: None Complications: None Consults: Consultations 07/12/16 10:50 Consult to Case Management [CONS] Routine Consult to [facility] Collector [CONS] Routine OT Evaluation and Treatment [CONS] Routine PT Evaluation and Treatment [CONS] Routine Respiratory Care Assess and Treatment [CONS] Routine Labs Pending at D/C: None Recommended Follow-up Testing/Procedures: Follow up in 5-[address] Gama, PCP with lab prior- BMP. Planned Operative Procedure(s) after DC: None Hospital Course: As above - Patient Instructions Diet: Heart Healthy Diet Activity: As Tolerated Driving: Do Not Drive Showering/Bathing: May Shower Notify Provider of: Fever, Increased Pain, Nausea and/or Vomiting - Discharge Plan Prescriptions/Med Rec: Furosemide [Lasix] 40 mg PO DAILY #30 tablet Midodrine 2.5 mg PO BID #60 tablet metroNIDAZOLE [Flagyl] 500 mg PO Q8H #18 tablet Home Medications: Home Meds Acetaminophen [Tylenol] 650 mg PO BID 06/06/16 [History] Albuterol Sulfate [Proair Respiclick] 2 puff INH ASDIRECTED PRN 06/06/16 [ History] Albuterol Sulfate [Proair Respiclick] 2 puff INH BID 06/06/16 [History] Allopurinol [Zyloprim] 200 mg PO DAILY 06/06/16 [History] Apixaban [Eliquis] 2.5 mg PO BID 06/06/16 [History] Calcium Polycarbophil [Fiber Tabs] 3 tab PO DAILY 06/06/16 [History] Carboxymethylcellulose Sodium [Refresh Tears] 1 drop EYEBOTH BID 06/06/16 [ History] Cetirizine [ZyrTEC] 10 mg PO DAILY 06/06/16 [History] Cholecalciferol (Vitamin D3) [Vitamin D3] 1,000 units PO DAILY 06/06/16 [History ] Diclofenac Sodium [Voltaren 1% Gel] 1 applic TOP BID 06/06/16 [History] Diclofenac Sodium [Voltaren 1% Gel] 1 applic TOP BID PRN 06/06/16 [History] Donepezil HCl 10 mg PO DAILY 06/06/16 [History] Ferrous Sulfate [Iron] 325 mg PO MOTHSA 06/06/16 [History] Gabapentin [Neurontin] 600 mg PO QPM 06/06/16 [History] Glucosamine/D3/Boswellia Aby [Osteo Bi-Flex Caplet] 1 each PO DAILY 06/06/16 [ History] Hydrocodone/Acetaminophen [[place] 5-325] 1 each PO Q12HR PRN 06/06/16 [History] Insulin Detemir [Levemir Flextouch] 25 unit SQ QAM 06/06/16 [History] Latanoprost [Xalatan 0.005% Ophth Soln] 1 drop EYEBOTH BEDTIME 06/06/16 [History ] Linagliptin [Tradjenta] 5 mg PO DAILY 06/06/16 [History] Mometasone Furoate [Nasonex] 1 spray NS DAILY PRN 06/06/16 [History] Nystatin [Nystatin Crm] 15 gm TOP BID 06/06/16 [History] Tiotropium Br/Olodaterol HCl [Stiolto Respimat Inhal [place]] 2 puff IH DAILY 09/15 [History] Trolamine Salicylate/Aloe Vera [Aspercreme 10%] 85 gm TOP QID PRN 06/06/16 [ History] Vitamin B Complex 1 each PO DAILY 06/06/16 [History] Digoxin 0.0625 mg PO DAILY 06/15/16 [History] Docusate Sodium/Sennosides [Senna Plus] 3 tab PO DAILY 07/12/16 [History] Fluconazole [Diflucan] 200 mg PO ASDIRECTED 07/12/16 [History] Sacubitril/Valsartan [Entresto 24 mg-26 mg Tablet] 1 each PO BID 07/12/16 [ History] metroNIDAZOLE [Flagyl] 500 mg PO Q8H #18 tablet 07/17/16 [Rx] Furosemide [Lasix] 40 mg PO DAILY #30 tablet 07/19/16 [Rx] Midodrine 2.5 mg PO BID #60 tablet 07/19/16 [Rx] Patient Handouts: Fall Prevention in the Home, [id number], Osteoarthritis, Clostridium Difficile Infection, [id number], Heart Failure, [id number], Fall Prevention in Hospitals, Adult, Atrial Fibrillation, [id number], Joint Pain, [id number] Forms: ED Department Discharge Referrals: Osito Balbuena MD [Primary Care Provider] - - Discharge Summary/Plan Comment DC Time >30 min.: Yes (40 min) - General Info Date of Service: 07/19/16 Admission Dx/Problem (Free Text: Admission Diagnosis/Problem Admission Diagnosis/Problem Fall Functional Status: Reports: pain controlled, tolerating diet, ambulating, urinating. Denies: new symptoms - Review of Systems General: Reports: No Symptoms, Weakness (improved) HEENT: Reports: no symptoms Pulmonary: Reports: no symptoms, shortness of breath (chronic and at baseline) Cardiovascular: Reports: No Symptoms Gastrointestinal: Reports: No symptoms, Other (tolerating diet). Denies: Abdominal pain, Diarrhea, Nausea, Vomiting Genitourinary: Reports: no symptoms Musculoskeletal: Reports: no symptoms Skin: Reports: no symptoms Neurological: Reports: No Symptoms Psychiatric: Reports: no symptoms - Patient Data Vitals - Most Recent: Last Vital Signs Temp 97.9 F 07/19/16 04:32 Pulse 84 07/19/16 08:20 Resp 18 07/19/16 04:32 BP 95/49 L 07/19/16 08:19 Pulse Ox 95 07/19/16 04:32 Weight - Most Recent: 175 lb 11.2 oz I&O - Last 24 hours: Intake & Output 07/18/16 07/19/16 07/19/16 22:59 06:59 14:59 Intake Total 500 400 Output Total 340 350 Balance 160 50 Lab Results - Last 24 hrs: Laboratory Results - last 24 hr 07/18/16 07/18/16 07/18/16 Range/Units 10:51 17:18 21:06 Sodium (136-145) mEq/L Potassium (3.5-5.1) mEq/L Chloride (98-107) mEq/L Carbon Dioxide (21-32) mEq/L Anion Gap (5-15) BUN (7-18) mg/dL Creatinine (0.55-1.02) mg/dL Est Cr Clr Drug Dosing mL/min Estimated GFR (MDRD) (>60) mL/min BUN/Creatinine Ratio (14-18) Glucose (83-115) mg/dL POC Glucose 198 H 72 L 129 H (83-110) mg/dL Calcium (8.5-10.1) mg/dL Magnesium (1.8-2.4) mg/dl 07/19/16 07/19/16 Range/Units 06:06 06:43 Sodium 139 (136-145) mEq/L Potassium 4.4 (3.5-5.1) mEq/L Chloride 106 (98-107) mEq/L Carbon Dioxide 22 (21-32) mEq/L Anion Gap 15.4 H (5-15) BUN 58 H (7-18) mg/dL Creatinine 1.5 H (0.55-1.02) mg/dL Est Cr Clr Drug Dosing 20.32 mL/min Estimated GFR (MDRD) 33 (>60) mL/min BUN/Creatinine Ratio 38.7 H (14-18) Glucose 79 L (83-115) mg/dL POC Glucose 85 (83-110) mg/dL Calcium 8.7 (8.5-10.1) mg/dL Magnesium 2.3 (1.8-2.4) mg/dl Med Orders - Current: Current Medications Acetaminophen (Tylenol) 650 mg PO Q4H PRN PRN Reason: Pain (Mild 1-3)/fever Acetaminophen (Tylenol) 650 mg PO BID [facility] Last Admin: 07/19/16 08:22 Dose: 650 mg Acetaminophen/Hydrocodone Bitart ([place] 325-5 Mg) 1 tab PO Q12HR PRN PRN Reason: Pain Last Admin: 07/13/16 11:26 Dose: 1 tab Albuterol/Ipratropium (Duoneb 3.0-0.5 Mg/3 Ml) 3 ml NEB Q4H PRN PRN Reason: Shortness Of Breath/wheezing Allopurinol (Zyloprim) 200 mg PO DAILY [facility] Last Admin: 07/19/16 08:19 Dose: 200 mg Apixaban (Eliquis) 2.5 mg PO BID [facility] Last Admin: 07/19/16 08:20 Dose: 2.5 mg Bisacodyl (Dulcolax) 5 mg PO DAILY PRN PRN Reason: Constipation Cholecalciferol (Vitamin D3) 1,000 units PO DAILY [facility] Last Admin: 07/19/16 08:18 Dose: 1,000 units Dextrose/Water (Dextrose 50% In Water) 50 ml IVPUSH ASDIRECTED PRN PRN Reason: Hypoglycemia Digoxin (Lanoxin) 62.5 mcg PO DAILY [facility] Last Admin: 07/19/16 08:20 Dose: 62.5 mcg Donepezil HCl (Aricept) 10 mg PO DAILY [facility] Last Admin: 07/19/16 08:20 Dose: 10 mg Ferrous Sulfate (Ferrous Sulfate) 325 mg PO MoThSa [facility] Last Admin: 07/17/16 12:59 Dose: 325 mg Flunisolide (Nasalide Nasal [place]) 0 ml NASBOTH DAILY PRN PRN Reason: STUFFY NOSE Furosemide (Lasix) 40 mg PO DAILY [facility] Last Admin: 07/19/16 08:27 Dose: Not Given Gabapentin (Neurontin) 600 mg PO QPM [facility] Last Admin: 07/18/16 17:20 Dose: 600 mg Hydromorphone HCl (Dilaudid) 0.25 mg IVPUSH Q2H PRN PRN Reason: Pain (severe 7-10) Promethazine HCl 12.5 mg/ (Sodium Chloride) 50.5 mls @ 100 mls/hr IV Q6H PRN PRN Reason: Nausea/Vomiting Insulin Aspart (Novolog) 0 unit SUBCUT QIDACANDBED [facility] PRN Reason: Protocol Last Admin: 07/19/16 06:54 Dose: Not Given Insulin Detemir (Levemir) 25 unit SUBCUT QAM [facility] Last Admin: 07/19/16 08:26 Dose: 25 units Lorazepam (Ativan) 0.5 mg IV Q6H PRN PRN Reason: Anxiety Last Admin: 07/14/16 23:53 Dose: 0.5 mg Magnesium Hydroxide (Milk Of Magnesia) 30 ml PO Q12H PRN PRN Reason: Constipation Metoprolol Succinate (Toprol Xl) 12.5 mg PO BID [facility] Last Admin: 03/20/17 08:19 Dose: Not Given Metronidazole (Flagyl) 500 mg PO Q8H [facility] Last Admin: 07/19/16 08:18 Dose: 500 mg Midodrine (Midodrine) 2.5 mg PO BID [facility] Last Admin: 07/19/16 08:17 Dose: 2.5 mg Nystatin (Nystatin Crm) 0 gm TOP BID [facility] Last Admin: 07/19/16 08:27 Dose: 1 applic Ondansetron HCl (Zofran) 4 mg IV Q6H PRN PRN Reason: Nausea/Vomiting Trolamine Salicylate (/Aloe Vera 85 Gm) 0 each TOP QID PRN PRN Reason: Pain Fluconazole [ (Diflucan] 200 Mg) 0 each PO Q72H [facility] Last Admin: 07/18/16 15:05 Dose: 1 each Carboxymethylcellulo (se Sodium 1 Drop) 0 each EYEBOTH BID [facility] Last Admin: 07/19/16 08:31 Dose: 1 each Latanoprost [Xalatan 0.005% Ophth Soln] 2.5 Ml 0 each EYEBOTH BEDTIME [facility] Last Admin: 07/18/16 21:01 Dose: 1 each Sacubitril/Valsartan [Entresto 24 Mg-26 Mg Tablet] 1 Each 0 each PO BID [facility] Last Admin: 07/19/16 08:33 Dose: 1 each Calcium Polycarbophil [Fiber Tabs] 3 Tab 0 each PO DAILY [facility] Last Admin: 07/19/16 08:31 Dose: 1 each Cetirizine 10 Mg 0 each PO DAILY [facility] Last Admin: 07/19/16 08:32 Dose: 1 each Glucosamine/D3/Boswellia Aby [ Osteo Bi-Flex Caplet ] 1 E 0 each PO DAILY [facility] Last Admin: 07/19/16 08:32 Dose: 1 each Linagliptin [ (Tradjenta] 5 Mg) 0 each PO DAILY [facility] Last Admin: 07/19/16 08:32 Dose: 1 each Tiotropium Br/Olodaterol Hcl [ Stiolto Respimat] 0 each INH DAILY [facility] Last Admin: 07/19/16 08:37 Dose: 2 each Vitamin B Complex 1 (Each) 0 each PO DAILY [facility] Last Admin: 07/19/16 08:33 Dose: 1 each Albuterol (Ventolin) (Inhaler) 0 each INH ASDIRECTED PRN PRN Reason: Shortness of Breath Albuterol Inhaler 0 each INH BID@0900,2100 [facility] Last Admin: 07/19/16 08:36 Dose: 2 each Polyethylene Glycol (Miralax) 17 gm PO DAILY PRN PRN Reason: Constipation Saccharomyces Boulardii (Florastor) 250 mg PO BID [facility] Last Admin: 07/19/16 08:17 Dose: 250 mg Senna/Docusate Sodium (Senna Plus) 1 tab PO BID PRN PRN Reason: Constipation Senna/Docusate Sodium (Senna Plus) 3 tab PO DAILY [facility] Last Admin: 07/19/16 08:18 Dose: 3 tab Sodium Chloride (Saline Flush) 10 ml FLUSH ASDIRECTED PRN PRN Reason: Keep Vein Open Last Admin: 07/12/16 07:38 Dose: 10 ml Temazepam (Restoril) 7.5 mg PO BEDTIME PRN PRN Reason: Sleep Discontinued Medications Acetaminophen/Hydrocodone Bitart ([place] 325-5 Mg) 1 tab PO Q4H PRN PRN Reason: Pain (moderate 4-6) Last Admin: 07/12/16 14:42 Dose: 1 tab Ceftriaxone Sodium (Rocephin) Confirm Administered Dose 1 gm IV .STK-MED ONE Stop: 07/12/16 10:11 Last Admin: 07/12/16 11:08 Dose: Not Given Enoxaparin Sodium (Lovenox) 30 mg SUBCUT DAILY [facility] Last Admin: 07/12/16 14:34 Dose: Not Given Enoxaparin Sodium (Lovenox) 30 mg SUBCUT DAILY [facility] Furosemide (Lasix) 60 mg PO DAILY [facility] Last Admin: 07/13/16 09:25 Dose: 60 mg Hydromorphone HCl (Dilaudid) 0.5 mg IVPUSH ONETIME ONE Stop: 07/12/16 09:28 Last Admin: 07/12/16 09:39 Dose: 0.5 mg Ceftriaxone Sodium 1 gm/ (Sodium Chloride) 100 mls @ 200 mls/hr IV ONETIME ONE Stop: 07/12/16 09:56 Last Admin: 07/12/16 09:38 Dose: 200 mls/hr Sodium Chloride (Normal Saline) Confirm Administered Dose 100 mls @ as directed .ROUTE .STK-MED ONE Stop: 07/12/16 10:11 Last Admin: 07/12/16 14:33 Dose: Not Given Sodium Chloride (Normal Saline) 500 mls @ 999 mls/hr IV .BOLUS ONE Stop: 07/13/16 17:46 Last Admin: 07/13/16 17:29 Dose: 999 mls/hr Sodium Chloride (Normal Saline) Confirm Administered Dose 1,000 mls @ as directed .ROUTE .STK-MED ONE Stop: 07/13/16 17:26 Last Admin: 07/13/16 20:18 Dose: 250 ml Sodium Chloride (Normal Saline) 250 mls @ 499.445 mls/hr IV .BOLUS ONE Stop: 07/13/16 19:08 Last Admin: 07/13/16 20:19 Dose: Not Given Lidocaine/Epinephrine (Xylocaine 1% With Epinephrine 1:100,000) 20 ml INJECT ONETIME ONE Stop: 07/12/16 07:00 Last Admin: 07/12/16 14:33 Dose: Not Given Metoprolol Succinate (Toprol Xl) 25 mg PO DAILY [facility] Last Admin: 07/16/16 15:37 Dose: Not Given Metoprolol Succinate (Toprol Xl) 12.5 mg PO DAILY [facility] Last Admin: 07/16/16 10:06 Dose: 12.5 mg Metoprolol Succinate (Toprol Xl) 25 mg PO BID [facility] Last Admin: 07/17/16 10:22 Dose: 25 mg Midodrine (Midodrine) 5 mg PO TIDAC [facility] Stop: 07/14/16 11:01 Last Admin: 07/14/16 11:33 Dose: 5 mg Midodrine (Midodrine) 2.5 mg PO TIDAC [facility] Last Admin: 07/16/16 17:58 Dose: 2.5 mg Midodrine (Midodrine) 2.5 mg PO TIDAC [facility] Last Admin: 07/18/16 17:21 Dose: 2.5 mg Non-Formulary Medication (Albuterol Sulfate [Proair Respiclick]) 2 puff INH BID [facility] Nystatin 15 Gm 0 gm TOP BID [facility] Last Admin: 07/14/16 10:17 Dose: Not Given Albuterol Sulfate [ (Ventolin]) 0 each INH ASDIRECTED PRN PRN Reason: Shortness of Breath Last Admin: 07/15/16 09:03 Dose: 2 each Albuterol Sulfate [ (Ventolin] Inhaler) 0 each INH BID@0900,1600 [facility] Last Admin: 07/16/16 09:04 Dose: 2 each Senna/Docusate Sodium (Senna Plus) 3 tab PO DAILY [facility] Last Admin: 07/13/16 18:38 Dose: Not Given Spironolactone (Aldactone) 25 mg PO DAILY [facility] Last Admin: 07/17/16 10:22 Dose: 25 mg Spironolactone (Aldactone) 12.5 mg PO DAILY [facility] Last Admin: 07/18/16 10:46 Dose: Not Given - Exam Quality Assessment: Reports: DVT prophylaxis General: Reports: alert, oriented, cooperative, no acute distress HEENT: Reports: Pupils equal, Pupils reactive, EOMI, Mucous membr. moist/pink Neck: Reports: supple Lungs: Reports: Clear to auscultation, Normal respiratory effort, Decreased breath sounds (to bases) Cardiovascular: Reports: Irregular Rhythm, Murmurs (grade 2 systolic) Abdomen: Reports: bowel sounds present, soft, no tenderness, no distension (Female) Exam: Deferred Rectal (Female) Exam: Deferred Back Exam: Reports: normal inspection Extremities: Reports: no calf tenderness, edema (trace to minimal at ankles/ pedal) Neurological: Reports: no new focal deficit Psy/Mental Status: Reports: alert, normal affect, normal mood *Q Meaningful Use (DIS) - VTE *Q VTE Criteria *Q: - Stroke *Q Stroke Criteria *Q: - AMI *Q AMI Criteria *Q:
[2016-07-19] MEDS: Ferrous Sulfate 325 MG Tab PO SCH (10:38)
--- NOTE | 2016-07-19 13:32 | PCM.PN ---
- General Info Date of Service: 07/19/16 Admission Dx/Problem (Free Text): Admission Diagnosis/Problem Admission Diagnosis/Problem Fall Doing well; strength improved. No complaints this morning, good appetite. Denies n/v/d. Denies abd pain. Functional Status: Reports: pain controlled, tolerating diet, ambulating, urinating. Denies: new symptoms - Review of Systems General: Reports: No Symptoms HEENT: Reports: no symptoms Pulmonary: Reports: no symptoms Cardiovascular: Reports: No Symptoms Gastrointestinal: Reports: No symptoms Genitourinary: Reports: no symptoms Musculoskeletal: Reports: no symptoms Skin: Reports: no symptoms Neurological: Reports: No Symptoms Psychiatric: Reports: no symptoms - Patient Data Vitals - most recent: Last Vital Signs Temp 97.9 F 07/19/16 04:32 Pulse 84 07/19/16 08:20 Resp 18 07/19/16 04:32 BP 95/49 L 07/19/16 08:19 Pulse Ox 95 07/19/16 04:32 Weight - most recent: 175 lb 11.2 oz I&O - last 24 hours: Intake & Output 07/18/16 07/19/16 07/19/16 22:59 06:59 14:59 Intake Total 500 400 330 Output Total 340 350 Balance 160 50 330 Lab Results last 24 hrs: Laboratory Results - last 24 hr 07/18/16 07/18/16 07/19/16 Range/Units 17:18 21:06 06:06 Sodium 139 (136-145) mEq/L Potassium 4.4 (3.5-5.1) mEq/L Chloride 106 (98-107) mEq/L Carbon Dioxide 22 (21-32) mEq/L Anion Gap 15.4 H (5-15) BUN 58 H (7-18) mg/dL Creatinine 1.5 H (0.55-1.02) mg/dL Est Cr Clr Drug Dosing 20.32 mL/min Estimated GFR (MDRD) 33 (>60) mL/min BUN/Creatinine Ratio 38.7 H (14-18) Glucose 79 L (83-115) mg/dL POC Glucose 72 L 129 H (83-110) mg/dL Calcium 8.7 (8.5-10.1) mg/dL Magnesium 2.3 (1.8-2.4) mg/dl 07/19/16 07/19/16 Range/Units 06:43 10:37 Sodium (136-145) mEq/L Potassium (3.5-5.1) mEq/L Chloride (98-107) mEq/L Carbon Dioxide (21-32) mEq/L Anion Gap (5-15) BUN (7-18) mg/dL Creatinine (0.55-1.02) mg/dL Est Cr Clr Drug Dosing mL/min Estimated GFR (MDRD) (>60) mL/min BUN/Creatinine Ratio (14-18) Glucose (83-115) mg/dL POC Glucose 85 198 H (83-110) mg/dL Calcium (8.5-10.1) mg/dL Magnesium (1.8-2.4) mg/dl Med Orders - Current: Current Medications Acetaminophen (Tylenol) 650 mg PO Q4H PRN PRN Reason: Pain (Mild 1-3)/fever Acetaminophen (Tylenol) 650 mg PO BID [facility] Last Admin: 07/19/16 08:22 Dose: 650 mg Acetaminophen/Hydrocodone Bitart (Melba 325-5 Mg) 1 tab PO Q12HR PRN PRN Reason: Pain Last Admin: 07/13/16 11:26 Dose: 1 tab Albuterol/Ipratropium (Duoneb 3.0-0.5 Mg/3 Ml) 3 ml NEB Q4H PRN PRN Reason: Shortness Of Breath/wheezing Allopurinol (Zyloprim) 200 mg PO DAILY [facility] Last Admin: 07/19/16 08:19 Dose: 200 mg Apixaban (Eliquis) 2.5 mg PO BID [facility] Last Admin: 07/19/16 08:20 Dose: 2.5 mg Bisacodyl (Dulcolax) 5 mg PO DAILY PRN PRN Reason: Constipation Cholecalciferol (Vitamin D3) 1,000 units PO DAILY [facility] Last Admin: 07/19/16 08:18 Dose: 1,000 units Dextrose/Water (Dextrose 50% In Water) 50 ml IVPUSH ASDIRECTED PRN PRN Reason: Hypoglycemia Digoxin (Lanoxin) 62.5 mcg PO DAILY [facility] Last Admin: 07/19/16 08:20 Dose: 62.5 mcg Donepezil HCl (Aricept) 10 mg PO DAILY [facility] Last Admin: 07/19/16 08:20 Dose: 10 mg Ferrous Sulfate (Ferrous Sulfate) 325 mg PO MoThSa [facility] Last Admin: 07/19/16 10:38 Dose: 325 mg Flunisolide (Nasalide Nasal [place]) 0 ml NASBOTH DAILY PRN PRN Reason: STUFFY NOSE Furosemide (Lasix) 40 mg PO DAILY [facility] Last Admin: 07/19/16 08:27 Dose: Not Given Gabapentin (Neurontin) 600 mg PO QPM [facility] Last Admin: 07/18/16 17:20 Dose: 600 mg Hydromorphone HCl (Dilaudid) 0.25 mg IVPUSH Q2H PRN PRN Reason: Pain (severe 7-10) Promethazine HCl 12.5 mg/ (Sodium Chloride) 50.5 mls @ 100 mls/hr IV Q6H PRN PRN Reason: Nausea/Vomiting Insulin Aspart (Novolog) 0 unit SUBCUT QIDACANDBED [facility] PRN Reason: Protocol Last Admin: 07/19/16 10:38 Dose: 1 unit Insulin Detemir (Levemir) 25 unit SUBCUT QAM [facility] Last Admin: 07/19/16 08:26 Dose: 25 units Lorazepam (Ativan) 0.5 mg IV Q6H PRN PRN Reason: Anxiety Last Admin: 07/14/16 23:53 Dose: 0.5 mg Magnesium Hydroxide (Milk Of Magnesia) 30 ml PO Q12H PRN PRN Reason: Constipation Metoprolol Succinate (Toprol Xl) 12.5 mg PO BID [facility] Last Admin: 07/19/16 08:19 Dose: Not Given Metronidazole (Flagyl) 500 mg PO Q8H [facility] Last Admin: 07/19/16 08:18 Dose: 500 mg Midodrine (Midodrine) 2.5 mg PO BID [facility] Last Admin: 07/19/16 08:17 Dose: 2.5 mg Nystatin (Nystatin Crm) 0 gm TOP BID [facility] Last Admin: 07/19/16 08:27 Dose: 1 applic Ondansetron HCl (Zofran) 4 mg IV Q6H PRN PRN Reason: Nausea/Vomiting Trolamine Salicylate (/Aloe Vera 85 Gm) 0 each TOP QID PRN PRN Reason: Pain Fluconazole [ (Diflucan] 200 Mg) 0 each PO Q72H [facility] Last Admin: 07/18/16 15:05 Dose: 1 each Carboxymethylcellulo (se Sodium 1 Drop) 0 each EYEBOTH BID [facility] Last Admin: 07/19/16 08:31 Dose: 1 each Latanoprost [Xalatan 0.005% Ophth Soln] 2.5 Ml 0 each EYEBOTH BEDTIME [facility] Last Admin: 07/18/16 21:01 Dose: 1 each Sacubitril/Valsartan [Entresto 24 Mg-26 Mg Tablet] 1 Each 0 each PO BID [facility] Last Admin: 07/19/16 08:33 Dose: 1 each Calcium Polycarbophil [Fiber Tabs] 3 Tab 0 each PO DAILY [facility] Last Admin: 07/19/16 08:31 Dose: 1 each Cetirizine 10 Mg 0 each PO DAILY [facility] Last Admin: 07/19/16 08:32 Dose: 1 each Glucosamine/D3/Boswellia Aby [ Osteo Bi-Flex Caplet ] 1 E 0 each PO DAILY [facility] Last Admin: 07/19/16 08:32 Dose: 1 each Linagliptin [ (Tradjenta] 5 Mg) 0 each PO DAILY [facility] Last Admin: 07/19/16 08:32 Dose: 1 each Tiotropium Br/Olodaterol Hcl [ Stiolto Respimat] 0 each INH DAILY [facility] Last Admin: 07/19/16 08:37 Dose: 2 each Vitamin B Complex 1 (Each) 0 each PO DAILY [facility] Last Admin: 07/19/16 08:33 Dose: 1 each Albuterol (Ventolin) (Inhaler) 0 each INH ASDIRECTED PRN PRN Reason: Shortness of Breath Albuterol Inhaler 0 each INH BID@0900,2100 [facility] Last Admin: 07/19/16 08:36 Dose: 2 each Polyethylene Glycol (Miralax) 17 gm PO DAILY PRN PRN Reason: Constipation Saccharomyces Boulardii (Florastor) 250 mg PO BID [facility] Last Admin: 07/19/16 08:17 Dose: 250 mg Senna/Docusate Sodium (Senna Plus) 1 tab PO BID PRN PRN Reason: Constipation Senna/Docusate Sodium (Senna Plus) 3 tab PO DAILY [facility] Last Admin: 07/19/16 08:18 Dose: 3 tab Sodium Chloride (Saline Flush) 10 ml FLUSH ASDIRECTED PRN PRN Reason: Keep Vein Open Last Admin: 07/12/16 07:38 Dose: 10 ml Temazepam (Restoril) 7.5 mg PO BEDTIME PRN PRN Reason: Sleep Discontinued Medications Acetaminophen/Hydrocodone Bitart (Melba 325-5 Mg) 1 tab PO Q4H PRN PRN Reason: Pain (moderate 4-6) Last Admin: 07/12/16 14:42 Dose: 1 tab Ceftriaxone Sodium (Rocephin) Confirm Administered Dose 1 gm IV .STK-MED ONE Stop: 07/12/16 10:11 Last Admin: 07/12/16 11:08 Dose: Not Given Enoxaparin Sodium (Lovenox) 30 mg SUBCUT DAILY [facility] Last Admin: 07/12/16 14:34 Dose: Not Given Enoxaparin Sodium (Lovenox) 30 mg SUBCUT DAILY [facility] Furosemide (Lasix) 60 mg PO DAILY [facility] Last Admin: 07/13/16 09:25 Dose: 60 mg Hydromorphone HCl (Dilaudid) 0.5 mg IVPUSH ONETIME ONE Stop: 07/12/16 09:28 Last Admin: 07/12/16 09:39 Dose: 0.5 mg Ceftriaxone Sodium 1 gm/ (Sodium Chloride) 100 mls @ 200 mls/hr IV ONETIME ONE Stop: 07/12/16 09:56 Last Admin: 07/12/16 09:38 Dose: 200 mls/hr Sodium Chloride (Normal Saline) Confirm Administered Dose 100 mls @ as directed .ROUTE .STK-MED ONE Stop: 07/12/16 10:11 Last Admin: 07/12/16 14:33 Dose: Not Given Sodium Chloride (Normal Saline) 500 mls @ 999 mls/hr IV .BOLUS ONE Stop: 07/13/16 17:46 Last Admin: 07/13/16 17:29 Dose: 999 mls/hr Sodium Chloride (Normal Saline) Confirm Administered Dose 1,000 mls @ as directed .ROUTE .STK-MED ONE Stop: 07/13/16 17:26 Last Admin: 07/13/16 20:18 Dose: 250 ml Sodium Chloride (Normal Saline) 250 mls @ 499.445 mls/hr IV .BOLUS ONE Stop: 07/13/16 19:08 Last Admin: 07/13/16 20:19 Dose: Not Given Lidocaine/Epinephrine (Xylocaine 1% With Epinephrine 1:100,000) 20 ml INJECT ONETIME ONE Stop: 07/12/16 07:00 Last Admin: 07/12/16 14:33 Dose: Not Given Metoprolol Succinate (Toprol Xl) 25 mg PO DAILY [facility] Last Admin: 07/16/16 15:37 Dose: Not Given Metoprolol Succinate (Toprol Xl) 12.5 mg PO DAILY [facility] Last Admin: 07/16/16 10:06 Dose: 12.5 mg Metoprolol Succinate (Toprol Xl) 25 mg PO BID [facility] Last Admin: 07/17/16 10:22 Dose: 25 mg Midodrine (Midodrine) 5 mg PO TIDAC [facility] Stop: 07/14/16 11:01 Last Admin: 07/14/16 11:33 Dose: 5 mg Midodrine (Midodrine) 2.5 mg PO TIDAC [facility] Last Admin: 07/16/16 17:58 Dose: 2.5 mg Midodrine (Midodrine) 2.5 mg PO TIDAC [facility] Last Admin: 07/18/16 17:21 Dose: 2.5 mg Non-Formulary Medication (Albuterol Sulfate [Proair Respiclick]) 2 puff INH BID [facility] Nystatin 15 Gm 0 gm TOP BID [facility] Last Admin: 07/14/16 10:17 Dose: Not Given Albuterol Sulfate [ (Ventolin]) 0 each INH ASDIRECTED PRN PRN Reason: Shortness of Breath Last Admin: 07/15/16 09:03 Dose: 2 each Albuterol Sulfate [ (Ventolin] Inhaler) 0 each INH BID@0900,1600 [facility] Last Admin: 07/16/16 09:04 Dose: 2 each Senna/Docusate Sodium (Senna Plus) 3 tab PO DAILY [facility] Last Admin: 07/13/16 18:38 Dose: Not Given Spironolactone (Aldactone) 25 mg PO DAILY [facility] Last Admin: 07/17/16 10:22 Dose: 25 mg Spironolactone (Aldactone) 12.5 mg PO DAILY [facility] Last Admin: 07/18/16 10:46 Dose: Not Given - Exam Quality Assessment: DVT prophylaxis General: alert, oriented, cooperative, no acute distress HEENT: Pupils equal, Pupils reactive, Mucous membr. moist/pink Neck: supple Lungs: Clear to auscultation, Normal respiratory effort, Decreased breath sounds (to bases) Cardiovascular: Irregular Rhythm, Murmurs (grade 2 systolic) Abdomen: bowel sounds present, soft, no tenderness, no distension (Female) Exam: Deferred Back Exam: normal inspection Extremities: no edema, no calf tenderness Peripheral Pulses: 1+: dorsalis pedis (L), dorsalis pedis (R) Skin: warm, dry, intact Neurological: no new focal deficit Psy/Mental Status: alert, normal affect, normal mood - Problem List & Annotations (1) Hypotension SNOMED Code(s): 29804993 Code(s): I95.9 - HYPOTENSION, UNSPECIFIED Status: Acute Priority: High Current Visit: Yes Qualifiers: Hypotension type: other hypotension type Qualified Code(s): I95.89 - Other hypotension (2) Chronic kidney disease SNOMED Code(s): 894785101 Code(s): N18.9 - CHRONIC KIDNEY DISEASE, UNSPECIFIED Status: Chronic Priority: Medium Current Visit: Yes Qualifiers: Chronic kidney disease stage: unspecified stage Qualified Code(s): N18.9 - Chronic kidney disease, unspecified (3) Generalized weakness SNOMED Code(s): 62728089 Code(s): R53.1 - WEAKNESS Status: Chronic Priority: High Current Visit : Yes (4) Clostridium difficile diarrhea SNOMED Code(s): 049151942, 525730878 Code(s): A04.7 - ENTEROCOLITIS DUE TO CLOSTRIDIUM DIFFICILE Status: Acute Priority: High Current Visit: Yes (5) Recurrent falls SNOMED Code(s): 433114267 Code(s): R29.6 - REPEATED FALLS Status: Chronic Priority: High Current Visit: Yes - Problem List Review Problem List Initiated/Reviewed/Updated: Yes - My Orders Last 24 Hours: My Active Orders 07/19/16 09:10 Ready for Discharge [RC] PER UNIT ROUTINE - Plan Plan:: Assessment/Plan: Acute: New Onset of C. Diff Infection - Continue oral flagyl TID and probiotic Generalized Weakness-- improving - 2/2 Multi-factorial - Continue PT/OT Cutaneous Candidiasis - Risk factors: DM2 and Obesity - Continue oral anti-fungal medications Self Neglect/Functional Decline - Lives in [facility], independent - Has Alzheimer's Dementia - per nurse she has fungal infection on groin area and skin folds - It appears she has not taken a shower in days-weeks High Risk for Poly-pharmacy Resolved: Status Post Fall - Likely mechanical - Carries hx/o Advanced OA/DJD - Continue PT/OT S/p Intractable Pain Status Post Fall - All imaging studies negative for acute fracture - Pain Management and PT/OT S/p AMS - She has underlying Alzheimer's Disease - Seems to be at baseline - High risk poly-pharmacy - UA shows no UTI - She is now at baseline S/p Relatively Hypotension - She is asymptomatic - Likely has autonomic Dysfunction - Continue Midodrine TID and Compression stockings - Continue Digoxin for rate control - Will start BB with lower dose BID S/p Right Cheryle-orbital Ecchymosis and Small Forehead Laceration - Improved Chronic: Impaired [place] and Vision Chronic Atrial Fibrillation, on Eliquis CAD HF with reduced EF 30-25% 06/06/16 Asthma/COPD Constipation CKD OA/DJD Osteopenia Gout Advanced Cardiac Valvular Dysfunction DM2 Alzheimer's Disease Thrombocytopenia BCC Actinic Keratosis Plan: Her vitals have improved Continue current treatment Routine AM Labs Fall and Precautions SW/CM for d/c planning Recommend SNF/NH Code status: 1 Additional orders as above Reviewed her homed meds: She is on entresto (ACEI/ARB), metoprolol 25 mg po BID , low dose digoxin plus lasix 60 mg daily along with aldactone 25 mg po daily. This might be too much for her. Currently she is on 40 of lasix doing just fine. Cut down metoprolol to 12.5 mg po BID. Re-start Midrodrine 2.5 mg po BID- TID. LOS anticipate > 96 hrs pending SNF/NH placement. Likely discharge to [facility] in the next 24-48 hours.
[2016-07-19] MEDS: Gabapentin 600 MG Tab PO SCH (17:13)
[2016-07-19] MEDS: LATANOPROST EYEBOTH SCH (22:33)
[2016-07-20] MEDS: metroNIDAZOLE 500 MG Tab PO SCH ×2 (02:47→08:26)
[2016-07-20] MEDS: Insulin Aspart 100 Units/ML 3 ML Pen SUBCUT SCH ×2 (07:55→12:00)
[2016-07-20] MEDS ORDERED: Furosemide 20 MG Tab PO SCH (08:00)
[2016-07-20] MEDS: Insulin Detemir 100 Units/ML 3 ML Pen SUBCUT SCH (08:24)
[2016-07-20] MEDS: Cholecalciferol (Vitamin D3) 1,000 Unit Tab PO SCH (08:26)
[2016-07-20] MEDS: Donepezil 10 MG Tab PO SCH (08:26)
[2016-07-20] MEDS: Acetaminophen 325 MG Tab PO SCH (08:26)
[2016-07-20] MEDS: Allopurinol 100 MG Tab PO SCH (08:26)
[2016-07-20] MEDS: Saccharomyces Boulardii (Probiotic) 250 MG Cap PO SCH (08:27)
[2016-07-20] MEDS: Digoxin 125 MCG Tab PO SCH (08:27)
[2016-07-20] MEDS: Midodrine 5 MG Tab PO SCH (08:28)
[2016-07-20] MEDS: Nystatin Crm 30 GM Tube TOP SCH (08:30)
[2016-07-20] MEDS: CARBOXYMETHYLCELLULOSE SODIUM EYEBOTH SCH (08:33)
[2016-07-20] MEDS: CALCIUM POLYCARBOPHIL PO SCH (08:37)
[2016-07-20] MEDS: Vitamin B Complex 1 EACH PO SCH (08:38)
[2016-07-20] MEDS: SACUBITRIL PO SCH (08:39)
[2016-07-20] MEDS: VALSARTAN PO SCH (08:39)
[2016-07-20] MEDS: LINAGLIPTIN 5 MG PO SCH (08:39)
[2016-07-20] MEDS: GLUCOSAMINE PO SCH (08:40)
[2016-07-20] MEDS: [UNRECOGNIZED DRUG - OTHER] PO SCH (08:40)
[2016-07-20] MEDS: D3 PO SCH (08:40)
[2016-07-20] MEDS: ALBUTEROL INHALER INH SCH (08:48)
[2016-07-20] MEDS: Tiotropium Br/Olodaterol Hcl [Stiolto Respimat] INH SCH (08:48)
[2016-07-20] MEDS: Apixaban 5 MG Tab PO SCH (11:22)
[2016-07-20] MEDS ORDERED: Metoprolol Succinate 25 MG Tab.ER PO SCH (12:00)
[2016-07-20 12:02] VITALS: BP 95/46
== END 2016-07-20 13:02 | DRG 948 ==
LOC: JD.ED 06:36 → INTOOBSV 10:07 → OBSVTOIN 10:07 → JD.MS 10:07 → OBSVTOIN 12:57 → JD.MS 14:20 → UNDODISIN 07-20 13:02
PROVIDERS: ADMIT Internal Medicine; ATTEND Internal Medicine
DX: G89.11 Acute pain due to trauma (principal); B37.89 Other sites of candidiasis; A04.7 Enterocolitis due to Clostridium difficile; I13.0 Hypertensive heart and chronic kidney disease with heart failure and stage 1 through stage 4 chronic kidney disease, or unspecified chronic kidney disease; I38 Endocarditis, valve unspecified; S70.01XA Contusion of right hip, initial encounter; S00.91XA Abrasion of unspecified part of head, initial encounter; M54.5 Low back pain; J40 Bronchitis, not specified as acute or chronic; S80.01XA Contusion of right knee, initial encounter; S01.111A Laceration without foreign body of right eyelid and periocular area, initial encounter; I48.91 Unspecified atrial fibrillation; S05.11XA Contusion of eyeball and orbital tissues, right eye, initial encounter; W18.30XA Fall on same level, unspecified, initial encounter; Z86.711 Personal history of pulmonary embolism; R41.82 Altered mental status, unspecified; I95.9 Hypotension, unspecified; R53.1 Weakness; H91.90 Unspecified hearing loss, unspecified ear; H54.7 Unspecified visual loss; I48.2 Chronic atrial fibrillation; I25.10 Atherosclerotic heart disease of native coronary artery without angina pectoris; N18.9 Chronic kidney disease, unspecified; I50.9 Heart failure, unspecified; J44.9 Chronic obstructive pulmonary disease, unspecified; J45.909 Unspecified asthma, uncomplicated; K59.00 Constipation, unspecified; M19.90 Unspecified osteoarthritis, unspecified site; M85.80 Other specified disorders of bone density and structure, unspecified site; M10.9 Gout, unspecified; E11.9 Type 2 diabetes mellitus without complications; Z79.4 Long term (current) use of insulin; G30.9 Alzheimer's disease, unspecified; F02.80 Dementia in other diseases classified elsewhere, unspecified severity, without behavioral disturbance, psychotic disturbance, mood disturbance, and anxiety; D69.6 Thrombocytopenia, unspecified; L57.0 Actinic keratosis; R29.6 Repeated falls; Z79.01 Long term (current) use of anticoagulants; Z79.899 Other long term (current) drug therapy; Z88.8 Allergy status to other drugs, medicaments and biological substances
CPT/HCPCS: 36415; 70450; 70450-26; 71010; 71010-26; 72100; 72100-26; 73502-26-RT; 73502-RT; 73562-26-RT; 73562-RT; 80048; 80053; 81001; 82962; 83735; 85025; 87086; 87493; 87804; 94640; 94664; 94760; 94761; 96365; 96375; 97110-GO; 97110-GP; 97116-GP; 97161-GP; 97166-GO; 97530-GO; 97530-GP; 97535-GO; 99222; 99232; 99284; 99285-25; A9270-GY; J0696; J1170; J1815-GY; J2060; J7030; J7040; J7050